=== PATIENT | female | born 1950 | race Caucasian/White ===

== ENCOUNTER 2019-01-01 12:32 | Inpatient (IN) | payer MEDICARE, BC ==
[~2019-01-01] VITALS: Ht 167.6 cm; Wt 84.8 kg
[2019-01-01] MEDS ORDERED: SODIUM CHLORIDE 0.9% 1L BAG IV* STA ×2 (12:42→12:48)
[2019-01-01] MEDS ORDERED: AZITHROMYCIN 500MG/NS (PMX) 250 ML IV STA (12:42)
[2019-01-01] MEDS ORDERED: CEFTRIAXONE 1 GM/50 ML (PMX) 50 ML IVPB STA (12:42)
[2019-01-01] MEDS ORDERED: ACETAMINOPHEN 325 MG TAB PO STA (12:42)
[2019-01-01] MEDS ORDERED: ONDANSETRON 4 MG INJ IV STA (12:48)
[2019-01-01] MEDS ORDERED: MAGNESIUM SULFATE 2 GM/50 ML 50 ML IVPB STA (12:48)
[2019-01-01] MEDS ORDERED: CEFEPIME 2GM/50 ML (PMX) 50 ML IVPB STA (12:48)
[2019-01-01] MEDS ORDERED: IPRATROPIUM (NEB) 0.5 MG/2.5 ML AMP INH STA (12:48)
[2019-01-01] MEDS ORDERED: morphine 4 MG/ML VIAL IV STA (12:48)
[2019-01-01] MEDS ORDERED: DEXAMETHASONE 10 MG/ML 1 ML INJ IV STA (12:48)
[2019-01-01] MEDS ORDERED: ALBUTEROL 0.5% (NEB) 2.5 MG/0.5 ML AMP INH STA (12:48)
[2019-01-01] MEDS ORDERED: VANCOMYCIN 1 GM (PMX) 250 ML IVPB ONE (13:00)
[2019-01-01] MEDS ORDERED: FLUO20CA22 PO (13:41)
[2019-01-01] MEDS ORDERED: AMLO2.5T78 PO (13:41)
[2019-01-01] MEDS ORDERED: LISI40TA3 PO (13:41)
[2019-01-01] MEDS ORDERED: TIOT18CA INHALATION (13:42)
[2019-01-01] MEDS ORDERED: PRAV40TA76 PO (13:44)
--- NOTE | 2019-01-01 13:46 | ERD ---
ER Documentation Chief Complaint Chief Complaint c/o fever, SOB, vomiting. recently on a trip to [place]. Hx: CHF, COPD HPI Very pleasant 68-year-old female history of COPD, possibly CHF who presents to the emergency room with shortness of breath. The patient is on oxygen intermittently and was recently in [place]. The patient states that she was hospitalized for 4 days for COPD exacerbation, not discharged on steroids or antibiotics. Patient states that her shortness of breath is worsening with subjective fevers, cough that is now productive of greenish sputum. Patient describes chest wall pain with coughing that is mild, sharp. ROS All systems reviewed and are negative except as per history of present illness. Medications Home Meds Reported Medications Aclidinium [place] (Tudorza Pressair) 400 Mcg Aer.pow.ba, 400 MCG IH BID, EA 01/01/19 Salmeterol Xinaf/Fluticasone* (Advair*) 250-50 Diskus Inhaler, 1 INH INHALATION BID, #1 INHALER 01/01/19 Pravastatin Sodium* (Pravastatin Sodium*) 40 Mg Tablet, 40 MG PO HS, TAB 01/01/19 Tiotropium [place]* (Spiriva*) 18 Mcg Cap.w.dev, 1 CAP INHALATION DAILY, #30 CAP 01/01/19 Fluoxetine Hcl* (Fluoxetine Hcl*) 20 Mg Capsule, 20 MG PO DAILY, CAP 01/01/19 Lisinopril* (Lisinopril*) 40 Mg Tablet, 40 MG PO DAILY, #30 TAB 01/01/19 Amlodipine Besylate* (Amlodipine Besylate*) 2.5 Mg Tablet, 2.5 MG PO DAILY, #30 TAB 01/01/19 Allergies Allergies: Coded Allergies: No Known Allergy (Unverified , 01/01/19) FmHx Family History: No diabetes Physical Exam Vitals Vital Signs Date Temp Pulse Resp B/P (MAP) Pulse Ox O2 O2 Flow FiO2 Time Delivery Rate 01/01/19 104 24 90 21 13:11 01/01/19 Nasal 2 13:00 Cannula 01/01/19 101.0 119 28 118/80 90 12:41 (93) Physical Exam General: Speaking in shorter sentences, breathing through pursed lips. Prolonged expiratory phase. Head: Normocephalic, atraumatic. Eyes: Pupils equally reactive, EOM intact ENT: Moist mucous membranes Neck: Supple, no lymphadenopathy Respiratory: Decreased aeration bilaterally with scant wheezing. Cardiovascular: Slight tachycardia, no murmurs, rubs, or gallops Abdominal: Soft, non-tender, non-distended, no peritoneal signs : Deferred MSK: No edema, no unilateral swelling, 5/5 strength Neurologic: Alert and oriented, moving all extremities, normal speech, no focal weakness, no cerebellar signs Skin: No rash Psych: Normal mood Result Diagram: 01/01/19 1256 01/01/19 1256 Results 24 hrs Laboratory Tests Test 01/01/19 12:56 01/01/19 14:20 White Blood Count 17.5 10^3/ul Red Blood Count 3.90 10^6/ul Hemoglobin 10.8 g/dl Hematocrit 33.5 % Mean Corpuscular Volume 85.9 fl Mean Corpuscular Hemoglobin 27.7 pg Mean Corpuscular Hemoglobin Concent 32.2 g/dl Red Cell Distribution Width 13.1 % Platelet Count 297 10^3/UL Mean Platelet Volume 10.4 fl Immature Granulocytes % 0.800 % Neutrophils % 88.9 % Lymphocytes % 4.1 % Monocytes % 6.0 % Eosinophils % 0.1 % Basophils % 0.1 % Nucleated Red Blood Cells % 0.0 /100WBC Immature Granulocytes # 0.140 10^3/ul Neutrophils # 15.6 10^3/ul Lymphocytes # 0.7 10^3/ul Monocytes # 1.0 10^3/ul Eosinophils # 0.0 10^3/ul Basophils # 0.0 10^3/ul Nucleated Red Blood Cells # 0.0 10^3/ul Prothrombin Time 14.2 Sec Prothrombin Time Ratio 1.1 INR International Normalized Ratio 1.09 Activated Partial Thromboplast Time 27.4 Sec Sodium Level 130 mmol/L Potassium Level 3.9 mmol/L Chloride Level 94 mmol/L Carbon Dioxide Level 24 mmol/L Anion Gap 12 Blood Urea Nitrogen 13 mg/dl Creatinine 1.00 mg/dl Est Glomerular Filtrat Rate mL/min 55 mL/min Glucose Level 126 mg/dl Calcium Level 9.0 mg/dl Total Bilirubin 0.6 mg/dl Direct Bilirubin 0.00 mg/dl Indirect Bilirubin 0.6 mg/dl Aspartate Amino Transf (AST/SGOT) 37 IU/L Alanine Aminotransferase (ALT/SGPT) 35 IU/L Alkaline Phosphatase 105 IU/L Troponin I < 0.012 ng/ml Total Protein 7.1 g/dl Albumin 3.8 g/dl Globulin 3.30 g/dl Albumin/Globulin Ratio 1.15 Urine Color YELLOW Urine Clarity SLIGHTLY CLOUDY Urine pH 6.0 Urine Specific Sharon 1.012 Urine Ketones NEGATIVE mg/dL Urine Nitrite POSITIVE mg/dL Urine Bilirubin NEGATIVE mg/dL Urine Urobilinogen 1+ mg/dL Urine Leukocyte Esterase 2+ Dorothea/ul Urine Microscopic RBC 1 /HPF Urine Microscopic WBC 28 /HPF Urine Bacteria FEW /HPF Urine Mucus FEW /HPF Urine Hemoglobin 1+ mg/dL Urine Glucose NEGATIVE mg/dL Urine Total Protein 1+ mg/dl Current Medications Medications Dose Sig/Dusty Start Time Status Last (Trade) Ordered Route PRN Stop Time Admin Dose Reason Admin Sodium 2,100 ml BOLUS OVER 2 01/01/19 DC Chloride HOURS STAT 12:42 (NS) IV* 01/01/19 12:51 650 mg ONCE STAT 01/01/19 DC 01/01/19 Acetaminophen PO 12:42 13:34 (Tylenol 01/01/19 12:44 Tab) Ceftriaxone 50 ml @ ONCE STAT 01/01/19 DC Sodium 100 mls/hr IVPB 12:42 01/01/19 12:51 Azithromycin 250 ml @ ONCE STAT 01/01/19 DC 250 mls/hr IV 12:42 01/01/19 12:51 Sodium 2,320 ml BOLUS OVER 2 01/01/19 DC 01/01/19 Chloride HOURS STAT 12:48 13:34 (NS) IV* 01/01/19 12:51 Cefepime HCl 50 ml @ ONCE STAT 01/01/19 DC 01/01/19 100 mls/hr IVPB 12:48 13:35 01/01/19 13:17 Vancomycin 250 ml @ ONCE ONCE 01/01/19 DC HCl 125 mls/hr IVPB 13:00 01/01/19 14:59 Albuterol 15 mg ONCE STAT 01/01/19 DC 01/01/19 (Proventil INH 12:48 13:11 0.5% (Neb)) 01/01/19 12:51 Ipratropium 2 mg ONCE STAT 01/01/19 DC 01/01/19 [place] INH 12:48 13:11 (Atrovent 01/01/19 12:51 0.02% (Neb)) 10 mg ONCE STAT 01/01/19 DC 01/01/19 Dexamethasone IV 12:48 13:34 (Decadron) 01/01/19 12:51 Magnesium 50 ml @ 25 ONCE STAT 01/01/19 DC 01/01/19 Sulfate mls/hr IVPB 12:48 13:35 01/01/19 14:47 Morphine 4 mg ONCE STAT 01/01/19 DC Sulfate IV 12:48 (morphine) 01/01/19 12:51 Ondansetron 4 mg ONCE STAT 01/01/19 DC 01/01/19 HCl (Zofran IV 12:48 13:34 Inj) 01/01/19 12:51 Ondansetron 4 mg BRIDGE ORDER 01/01/19 HCl (Zofran PRN IV 14:30 Inj) NAUSEA/VOMITI 01/02/19 14:29 NG 650 mg ER BRIDGE 01/01/19 Acetaminophen PRN PO 14:30 (Tylenol .MILD PAIN 01/02/19 14:29 Tab) 1-3 OR TEMP IV Flush 3 ml PER 01/01/19 (NS 3 ml) PROTOCOL IV 15:00 Ondansetron 4 mg Q6H PRN 01/01/19 HCl (Zofran IV 15:00 Inj) NAUSEA/VOMITI NG 650 mg Q6H PRN 01/01/19 Acetaminophen PO .PAIN 1-3 15:00 (Tylenol OR TEMP Tab) 1 tab Q6H PRN 01/01/19 Acetaminophen PO .MOD PAIN 15:00 / 4-6 Hydrocodone Bitart ([place] (5/325)) Morphine 2 mg Q4H PRN 01/01/19 Sulfate IV .SEVERE 15:00 (morphine) PAIN 7-10 Docusate 100 mg Q12H PRN 01/01/19 Sodium PO 15:00 (Colace) .CONSTIPATION Magnesium 30 ml DAILY PRN 01/01/19 Hydroxide PO 15:00 (Milk Of Mag) .CONSTIPATION Heparin 5,000 unit Q12 SC 01/01/19 Sodium 21:00 (Porcine) (Heparin (5000 Units/1ml)) Sodium 1,000 ml @ [id number] IV 01/01/19 Chloride 75 mls/hr 14:36 Lorazepam 0.5 mg Q6H PRN 01/01/19 (Ativan) IV ANXIETY 15:00 Albuterol/ 3 ml Q4H RESP 01/01/19 Ipratropium THERAPY HHN 17:00 (Duoneb) Piperacillin 100 ml @ Q6 IVPB 01/01/19 Sod/ 200 mls/hr 18:00 Tazobactam Sod Hydralazine 10 mg Q6H PRN 01/01/19 HCl IV ELEVATED 15:00 (Apresoline) BLOOD PRESSURE 1 tab Q5M PRN 01/01/19 Nitroglycerin SL ANGINA 15:00 (Nitroglyceri n (Sl Tab) 0.4 Mg) Fluoxetine 20 mg DAILY PO 01/02/19 HCl 09:00 (Prozac) 40 mg HS PO 01/01/19 UNV Miscellaneous 21:00 Information 1 inh BID 01/01/19 DC Miscellaneous INHALATION 21:00 Information 01/01/19 21:00 80 mg Q8 IV 01/01/19 Methylprednis 15:00 olone Sodium Succinate (Solu-Medrol) 10 mg HS PO 01/01/19 Atorvastatin 21:00 Calcium (Lipitor) 2 ml BID RESP 01/01/19 Arformoterol THERAPY INH 20:00 Tartrate (Brovana (Neb)) Budesonide 0.5 mg BID RESP 01/01/19 (Pulmicort THERAPY INH 20:00 (Neb)) Procedures/MDM EKG, MONITORS, & DIAGNOSTIC IMAGING: EKG: I reviewed and interpreted a 12-lead EKG. Rhythm: Sinus tachycardia ST Changes: No contiguous ST segment elevations T waves: No contiguous T wave inversions Impression: No evidence of acute cardiac ischemia Chest x-ray: I reviewed and interpreted a 1 view of the chest Mediastinum: No enlargement Cardiac silhouette: No cardiomegaly Airspace: Right lower lobe infiltrate Bones: No evidence of fracture LAB INTERPRETATION: I reviewed the laboratory testing and it shows leukocytosis MEDICAL DECISION MAKING: Patient presents with Sirs criteria with concern for focal source of infection raising a concern for sepsis. Sepsis screening was initiated and the code sepsis was called. Patient has recent hospitalization prompting broad-spectrum antibiotics. Patient likely has COPD exacerbation. No evidence of volume overload and low concern for CHF exacerbation. Monitoring fluid resuscitation is certainly necessary. Patient is protecting her airway and does not require positive pressure ventilation at this time. She is allergic to epinephrine. ER COURSE: * The patient was given an hour-long breathing treatment, Decadron, blood cultures prior to broad-spectrum antibiotics in the form of vancomycin and cefepime. Magnesium provided for assistance of wheezing and shortness of breath. * Patient was written for 30 cc/kg bolus of normal saline. * Lactic acid and blood pressure are reassuring. CONSULTATION: None DISPOSITION PLAN: Medical surgical admission for management of COPD exacerbation, sepsis Accepting care team and consultations: I discussed the current laboratory data, diagnostic imaging and emergency care provided. Admitting team: Dr. Hunt Admitting team indication: Insurance directed Sepsis Documentation: Patient's infectious symptoms have not stabilized and the patient is at risk of rapid decompensation. The patient will be admitted for careful hydration, antibiotic therapy, and infectious source control. SEVERE SEPSIS CRITERIA: Infectious source: Healthcare associated pneumonia End organ damage indicated by: Acute Resp Failure (sat < 92% w/o oxygen) SEPSIS MANAGEMENT Time of recognition of sepsis: Upon MD assessment. Time of recognition of severe sepsis: Upon MD assessment. Time of recognition of septic shock: No septic shock at this time. 3 HOUR BUNDLE Blood cultures x 2 before broad-spectrum antibiotics: Yes 30 ml/kg NS bolus completed Initial lactate less than 2 Repeat lactate pending repeat SEPTIC SHOCK ASSESSMENT: No lactic acid > 4.0 No persistent hypotension (SBP < 90 or 40 mmHg drop, MAP < 65) despite 30 mL/kg IV fluid bolus VOLUME REASSESSMENT FOR SEPTIC SHOCK: The patient does not meet criteria for septic shock in the emergency department at this time PERSISTENT HYPOTENSION TREATMENT: Comfort care no Central line not Required Vasopressor started not required I considered further perfusion assessment with CVP measurement, SCVO2, bedside ultrasound volume assessment, passive leg raise, trial of further fluid bolus. And proceeded with 30 ml/kg fluid bolus of NSS, broad spectrum antibiotics, and admission. CRITICAL CARE Critical care time 35 minutes Emergent fluid management while maintaining close respiratory support. Provision of immediate and broad-spectrum antibiotic therapy. Simultaneous assessment for possible sources in order to direct targeted therapy. Consideration for invasive and chemical support to prevent cardiopulmonary collapse. Critical care time is independent of procedures performed. Departure Diagnosis: Primary Impression: COPD with exacerbation Additional Impressions: Healthcare-associated pneumonia Severe sepsis Hypoxia Condition: Stable ALMA LONDONO MD Jan 01, 2019 13:46
[2019-01-01] MEDS ORDERED: ADV25050 INHALATION (13:50)
[2019-01-01] MEDS ORDERED: ACLI400A2 IH (13:51)
[2019-01-01] MEDS ORDERED: ACETAMINOPHEN 325 MG TAB PO PRN (14:30)
[2019-01-01] MEDS ORDERED: ONDANSETRON 4 MG INJ IV PRN (14:30)
[2019-01-01] MEDS: SOD CHLORIDE 0.45% 1,000 ML IV SCH ×2 (14:36→22:58)
[2019-01-01] MEDS ORDERED: MAGNESIUM HYDROXIDE 30ML CUP PO PRN (15:00)
[2019-01-01] MEDS ORDERED: hydrALAzine 20 MG INJ IV PRN (15:00)
[2019-01-01] MEDS ORDERED: morphine 2 MG INJ IV PRN (15:00)
[2019-01-01] MEDS ORDERED: NITROGLYCERIN (SL) 0.4 MG TAB SL PRN (15:00)
[2019-01-01] MEDS ORDERED: NACL 0.9% 3 ML SYG IV SCH (15:00)
[2019-01-01] MEDS: PIPER-TAZO 3.375 GM IV (PMX) 100 ML IVPB SCH (18:02)
[2019-01-01] MEDS: METHYLPREDNISOLONE 125 MG INJ IV SCH ×2 (18:02→22:58)
[2019-01-01] MEDS: ALBUTEROL/IPRATROPIUM (NEB) 3 ML AMP HHN SCH ×3 (18:13→21:00)
[2019-01-01] MEDS ORDERED: AZITHROMYCIN 500 MG TAB PO ONE (19:30)
--- NOTE | 2019-01-01 19:41 | HP ---
DATE OF ADMISSION: 01/01/2019 REASON FOR ADMISSION: Cough, fever and shortness of breath. HISTORY OF PRESENT ILLNESS: This 68-year-old female who has a history of COPD, came to the emergency room today because of increasing cough that was productive of greenish phlegm, shortness of breath a nd fever. The patient has a long history of chronic obstructive pulmonary disease for years. She wa s a smoker years ago. The patient was admitted earlier this month on 12/19/2018 to [facility] in [place]. She was there visiting her brother. She says that she was admitted there because of crushing type chest pain with shortness of breath. The patient denies that she had fever or product noa cough at that time. The patient was diagnosed with chest pain due to compensated heart failure, chronic obstructive pulmonary disease and hypertension. Her lungs at the time of that admission were clear. Cardiac enzymes were negative and there was no evidence of cardiac ischemia. Her BNP was no rmal at 32. The patient was treated for hypertension, hyperlipidemia, congestive heart failure and c hronic obstructive pulmonary disease. She was discharged home on amlodipine 2.5 mg a day, budesonide and formoterol 80/4.5 two puffs twice a day, fluoxetine 20 mg a day, lisinopril 40 mg a day and Spir alissa capsules 2 puffs daily. The patient said that she was doing well until the last several days whe n she developed increasing cough productive of greenish sputum, fever, nausea, vomiting and right upp er quadrant abdominal pain. The patient is cared for by a nurse practitioner, Rupali Mckenzie, who works in our [place] office. CURRENT MEDICATIONS: Include: 1. Tudorza Pressair 400 mcg b.i.d. 2. Advair 250/50 one puff twice a day. 3. Pravastatin 40 mg a day. 4. Spiriva 18 mcg 1 inhalation daily. 5. Fluoxetine 20 mg a day. 6. Lisinopril 40 mg a day. 7. Amlodipine 2.5 mg a day. ALLERGIES: SHE HAS NO KNOWN DRUG ALLERGIES. FAMILY HISTORY: Unremarkable. PHYSICAL EXAMINATION: GENERAL: At this time reveals an elderly female in no apparent distress. She is awake and alert and oriented x3. VITAL SIGNS: Temperature 98.3, pulse of 94, respirations 16, blood pressure 110/78, O2 saturation 97 % on 2-liter nasal cannula. HEENT: Head is normocephalic. Eyes: Extraocular muscles are intact. Nose and mouth are normal. LUNGS: Diminished breath sounds bilaterally. No rales. There are some fine expiratory wheezes on t he right. HEART: Regular rate, rhythm. No murmurs, gallops or rubs. ABDOMEN: Soft, nontender, no masses or megaly. EXTREMITIES: No peripheral edema. NEUROLOGIC: Grossly intact. No obvious focal neurologic deficits. DIAGNOSTIC DATA: Chest x-ray shows a right lower lobe infiltrate. LABORATORY DATA: White blood count is elevated at 17,500, hemoglobin 10.8, hematocrit 33.5. Photo Mask Pattern Generator ry: Sodium 130, potassium 3.9, chloride 94, CO2 of 24, BUN 13, creatinine 1.0. Urinalysis: She cruz s have some white blood cells in the urine and positive nitrite and leukocyte esterase 2+. IMPRESSION: 1. Right lower lobe pneumonia superimposed on chronic obstructive pulmonary disease. 2. Hypertension. 3. Hyperlipidemia. 4. Anemia. 5. Hyponatremia. 6. Urinary tract infection. PLAN: 1. Start broad spectrum antibiotics. 2. Breathing treatments. 3. Check urine sodium. 4. Check iron, stool for occult blood. 5. Right upper quadrant abdominal pain. Dictated By: ALMA ADAMS MD, ND/LAURI Conf#: [id number] DID#: [id number] CC: ALMA LONDONO MD;*EndCC*
[2019-01-01] MEDS: BUDESONIDE (NEB) 0.5MG/2ML AMP INH SCH (20:00)
[2019-01-01] MEDS: ARFORMOTEROL TARTRATE 15MCG/2 ML AMP INH SCH (20:00)
[2019-01-01] MEDS ORDERED: NON-FORMULARY/PATIENT OWN MED (Pravastatin Sodium* 40 MG) PO SCH (21:00)
[2019-01-01] MEDS ORDERED: NON-FORMULARY/PATIENT OWN MED (Salmeterol Xinaf/Fluticasone* (Advair*) 1 INH) INHALATION SCH (21:00)
[2019-01-01] MEDS: ATORVASTATIN 10 MG TAB PO SCH (21:47)
[2019-01-01 22:33] VITALS: Ht 167.6 cm; Wt 84.8 kg
[2019-01-01 23:00] VITALS: BP 135/75; PULSE 90; RESP 18
[2019-01-01] MEDS: HEPARIN 5,000 UNIT/1 ML VIAL SC SCH (23:03)
[2019-01-02] MEDS: ALBUTEROL/IPRATROPIUM (NEB) 3 ML AMP HHN SCH ×6 (00:05→20:57)
[2019-01-02] MEDS: PIPER-TAZO 3.375 GM IV (PMX) 100 ML IVPB SCH ×5 (00:13→23:53)
[2019-01-02 02:00] VITALS: BP 106/61; PULSE 93; RESP 19
[2019-01-02] MEDS: SALINE 0.65% NAS 14.1 GM TUBE NASAL PRN ×2 (04:01→12:55)
[2019-01-02] MEDS: METHYLPREDNISOLONE 125 MG INJ IV SCH (05:33)
--- NOTE | 2019-01-02 07:47 | CONS ---
Assessment/Plan Assessment/Plan Hospital Course (Demo Recall) 1) RML pneumonia following a 4 day stay in a hospital for COPD and (altitude sickness?) sputum cx was just collected nasal swab for MRSA is pending blood cx are NGTD continue with zosyn and add doxycycline for atypical and MRSA coverage I agree with treating for more resistant bacteria due to her recent stay at a hospital because of wheezing pt was given steroids, currently there is no wheezing 2) moderate pyuria with GNR in urine pt has some mild L CVAT, so will get a renal u/s likely zosyn will treat await final ID and sensi's 3) COPD 4) HTN 5) hx of CHF Consultation Date/Type/Reason Admit Date/Time Jan 01, 2019 at 14:28 Date of Consultation: Jan 02, 2019 Type of Consult ID Date/Time of Note DATE: 01/02/19 TIME: 07:33 Hx of Present Illness pt was admitted to the hospital yesterday due to F, chills, sweats, productive cough She was in [place], [place] visiting her brother in december and withing 24 hours of being there she developed 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 She was not having a cough or fevers at that time and was not given any antibiotics. within 24 hours of leaving the hospital she developed some fevers, productive cough (green), muscle aches, hip joint pains, chills and continued sweats this continued for a week and then she came back to [place] and was admitted to the hospital She had some vomiting with nausea She denies diarrhea, dysuria, urine frequency, rashes but does say she feels as though her kidneys hurt She states her diffuse muscle aches and hip joint pains are better. Her sputum today is less productive. Past Medical History CHF, HTN, COPD, hyperlipidemia Home Meds Reported Medications Aclidinium [place] (Tudorza Pressair) 400 Mcg Aer.pow.ba, 400 MCG IH BID, EA 01/01/19 Salmeterol Xinaf/Fluticasone* (Advair*) 250-50 Diskus Inhaler, 1 INH INHALATION BID, #1 INHALER 01/01/19 Pravastatin Sodium* (Pravastatin Sodium*) 40 Mg Tablet, 40 MG PO HS, TAB 01/01/19 Tiotropium [place]* (Spiriva*) 18 Mcg Cap.w.dev, 1 CAP INHALATION DAILY, #30 CAP 01/01/19 Fluoxetine Hcl* (Fluoxetine Hcl*) 20 Mg Capsule, 20 MG PO DAILY, CAP 01/01/19 Lisinopril* (Lisinopril*) 40 Mg Tablet, 40 MG PO DAILY, #30 TAB 01/01/19 Amlodipine Besylate* (Amlodipine Besylate*) 2.5 Mg Tablet, 2.5 MG PO DAILY, #30 TAB 01/01/19 Medications Current Medications IV Flush (NS 3 ml) 3 ml PER PROTOCOL IV ; Start 01/01/19 at 15:00 Ondansetron HCl (Zofran Inj) 4 mg Q6H PRN IV NAUSEA/VOMITING; Start 01/01/19 at 15:00 Acetaminophen (Tylenol Tab) 650 mg Q6H PRN PO .PAIN 1-3 OR TEMP; Start 01/01/19 at 15:00 Acetaminophen/ Hydrocodone Bitart ([place] (5/325)) 1 tab Q6H PRN PO .MOD PAIN 4- 6; Start 01/01/19 at 15:00 Morphine Sulfate (morphine) 2 mg Q4H PRN IV .SEVERE PAIN 7-10; Start 01/01/19 at 15:00 Docusate Sodium (Colace) 100 mg Q12H PRN PO .CONSTIPATION; Start 01/01/19 at 15:00 Magnesium Hydroxide (Milk Of Mag) 30 ml DAILY PRN PO .CONSTIPATION; Start 01/01/19 at 15:00 Heparin Sodium (Porcine) (Heparin (5000 Units/1ml)) 5,000 unit Q12 SC Last administered on 01/01/19at 23:03; Admin Dose 5,000 UNIT; Start 01/01/19 at 21:00 Sodium Chloride 1,000 ml @ 75 mls/hr [id number] IV Last administered on 01/01/19at 22:58; Admin Dose 75 MLS/HR; Start 01/01/19 at 14:36 Lorazepam (Ativan) 0.5 mg Q6H PRN IV ANXIETY; Start 01/01/19 at 15:00 Albuterol/ Ipratropium (Duoneb) 3 ml Q4H RESP THERAPY HHN Last administered on 01/02/19at 04:41; Admin Dose 3 ML; Start 01/01/19 at 17:00 Piperacillin Sod/ Tazobactam Sod 100 ml @ 200 mls/hr Q6 IVPB Last administered on 01/02/19at 05:34; Admin Dose 200 MLS/HR; Start 01/01/19 at 18:00 Hydralazine HCl (Apresoline) 10 mg Q6H PRN IV ELEVATED BLOOD PRESSURE; Start 01/01/19 at 15:00 Nitroglycerin (Nitroglycerin (Sl Tab) 0.4 Mg) 1 tab Q5M PRN SL ANGINA; Start 01/01/19 at 15:00 Fluoxetine HCl (Prozac) 20 mg DAILY PO ; Start 01/02/19 at 09:00 Methylprednisolone Sodium Succinate (Solu-Medrol) 80 mg Q8 IV Last administered on 01/02/19at 05:33; Admin Dose 80 MG; Start 01/01/19 at 15:00 Atorvastatin Calcium (Lipitor) 10 mg HS PO Last administered on 01/01/19at 21:47; Admin Dose 10 MG; Start 01/01/19 at 21:00 Arformoterol Tartrate (Brovana (Neb)) 2 ml BID RESP THERAPY INH ; Start 01/01/19 at 20:00 Budesonide (Pulmicort (Neb)) 0.5 mg BID RESP THERAPY INH ; Start 01/01/19 at 20:00 Sodium Chloride ([place] Nasal Gel) 1 applic BID PRN NASAL NASAL DRYNESS Last administered on 01/02/19at 04:01; Admin Dose 1 APPLIC; Start 01/01/19 at 23:00 Allergies: Coded Allergies: epinephrine (Verified Allergy, Severe, 01/01/19) Past Surgical History hysterectomy, choleycystectomy, R shoulder surgery, R knee surgery Social History Smoking Status: Former smoker Exam/Review of Systems Exam Vitals Vital Signs Date Temp Pulse Resp B/P (MAP) Pulse Ox O2 O2 Flow FiO2 Time Delivery Rate 01/02/19 92 18 93 Nasal 2.0 04:42 Cannula 01/02/19 98.0 106/61 02:00 (76) 01/01/19 21 13:11 Intake and Output 01/01/19 01/01/19 01/02/19 1515:00 23:00 07:00 IntakeIntake Total 780 ml OutputOutput Total 300 ml BalanceBalance 480 ml Constitutional: alert, oriented Eyes: nl sclera ENMT: mucosa pink and moist Neck: supple Respiratory: clear to auscultation, other (distant BS) Cardiovascular: regular rate and rhythm Gastrointestinal: soft, non-tender, other (mild L CVAT) Results Result Diagram: 01/02/19 0451 01/02/19 0451 Results 24hrs Laboratory Tests Test 01/01/19 12:56 01/01/19 12:57 01/01/19 14:20 01/01/19 14:44 White Blood Count 17.5 H Red Blood Count 3.90 L Hemoglobin 10.8 L Hematocrit 33.5 L Mean Corpuscular 85.9 Volume Mean Corpuscular 27.7 L Hemoglobin Mean Corpuscular 32.2 Hemoglobin Concen t Red Cell 13.1 Distribution Width Platelet Count 297 Mean Platelet 10.4 Volume Immature 0.800 H Granulocytes % Neutrophils % 88.9 H Lymphocytes % 4.1 L Monocytes % 6.0 Eosinophils % 0.1 Basophils % 0.1 Nucleated Red 0.0 Blood Cells % Immature 0.140 H Granulocytes # Neutrophils # 15.6 H Lymphocytes # 0.7 L Monocytes # 1.0 H Eosinophils # 0.0 Basophils # 0.0 Nucleated Red 0.0 Blood Cells # Prothrombin Time 14.2 Prothrombin Time 1.1 Ratio INR International 1.09 Normalized Ratio Activated 27.4 Partial Thrombopl ast Time Sodium Level 130 L Potassium Level 3.9 Chloride Level 94 L Carbon Dioxide 24 Level Anion Gap 12 Blood Urea 13 Nitrogen Creatinine 1.00 Est Glomerular 55 L Filtrat Rate mL/min Glucose Level 126 Calcium Level 9.0 Total Bilirubin 0.6 Direct Bilirubin 0.00 Indirect 0.6 Bilirubin Aspartate Amino 37 Transf (AST/SGOT) Alanine 35 Aminotransferase (ALT/SGPT) Alkaline 105 Phosphatase Troponin I < 0.012 Total Protein 7.1 Albumin 3.8 Globulin 3.30 H Albumin/Globulin 1.15 Ratio POC Venous 1.2 Lactate Urine Color YELLOW Urine Clarity SLIGHTLY CLOUDY A Urine pH 6.0 Urine Specific 1.012 [place] Urine Ketones NEGATIVE Urine Nitrite POSITIVE A Urine Bilirubin NEGATIVE Urine 1+ H Urobilinogen Urine Leukocyte 2+ H Esterase Urine Microscopic 1 RBC Urine Microscopic 28 H WBC Urine Bacteria FEW A Urine Mucus FEW A Urine Hemoglobin 1+ H Urine Random 23 L Sodium Urine Glucose NEGATIVE Urine Total 1+ H Protein Lactic Acid Level 1.6 Test 01/01/19 14:57 01/01/19 20:00 01/02/19 04:49 01/02/19 04:51 Prothrombin Time 14.7 Prothrombin Time 1.1 Ratio INR International 1.14 Normalized Ratio Activated 30.4 Partial Thrombopl ast Time Free Thyroxine 2.20 Lactic Acid Level 1.8 Iron Level 14 L Total Iron 254 Binding Capacity Percent Iron 6 L Saturation Ferritin 111.0 Thyroid 0.477 Pending Stimulating Hormone (TSH) Triglycerides 70 Level Cholesterol Level 97 L LDL Cholesterol, 57 Calculated HDL Cholesterol 26 L Cholesterol/HDL 3.7 Ratio White Blood Count 13.1 #H Red Blood Count 3.33 L Hemoglobin 9.4 L Hematocrit 28.9 L Mean Corpuscular 86.8 Volume Mean Corpuscular 28.2 L Hemoglobin Mean Corpuscular 32.5 Hemoglobin Concen t Red Cell 13.1 Distribution Width Platelet Count 278 Mean Platelet 10.3 Volume Immature 0.500 H Granulocytes % Neutrophils % 93.6 H Lymphocytes % 3.4 L Monocytes % 2.3 Eosinophils % 0.0 Basophils % 0.2 Nucleated Red 0.0 Blood Cells % Immature 0.070 H Granulocytes # Neutrophils # 12.2 H Lymphocytes # 0.4 L Monocytes # 0.3 Eosinophils # 0.0 Basophils # 0.0 Nucleated Red 0.0 Blood Cells # Sodium Level 133 L Potassium Level 4.1 Chloride Level 98 Carbon Dioxide 25 Level Anion Gap 10 Blood Urea 15 Nitrogen Creatinine 0.79 Est Glomerular > 60 Filtrat Rate mL/min Glucose Level 131 Hemoglobin A1c 6.0 H Calcium Level 8.9 Phosphorus Level 3.1 Magnesium Level 2.2 Total Bilirubin 0.2 Direct Bilirubin 0.00 Indirect 0.2 Bilirubin Aspartate Amino 29 Transf (AST/SGOT) Alanine 30 Aminotransferase (ALT/SGPT) Alkaline 97 Phosphatase Total Protein 6.3 Albumin 3.1 L Globulin 3.20 Albumin/Globulin 0.96 Ratio Medications Medication Current Medications IV Flush (NS 3 ml) 3 ml PER PROTOCOL IV ; Start 01/01/19 at 15:00 Ondansetron HCl (Zofran Inj) 4 mg Q6H PRN IV NAUSEA/VOMITING; Start 01/01/19 at 15:00 Acetaminophen (Tylenol Tab) 650 mg Q6H PRN PO .PAIN 1-3 OR TEMP; Start 01/01/19 at 15:00 Acetaminophen/ Hydrocodone Bitart ([place] (5/325)) 1 tab Q6H PRN PO .MOD PAIN 4- 6; Start 01/01/19 at 15:00 Morphine Sulfate (morphine) 2 mg Q4H PRN IV .SEVERE PAIN 7-10; Start 01/01/19 at 15:00 Docusate Sodium (Colace) 100 mg Q12H PRN PO .CONSTIPATION; Start 01/01/19 at 15:00 Magnesium Hydroxide (Milk Of Mag) 30 ml DAILY PRN PO .CONSTIPATION; Start 01/01/19 at 15:00 Heparin Sodium (Porcine) (Heparin (5000 Units/1ml)) 5,000 unit Q12 SC Last administered on 01/01/19at 23:03; Admin Dose 5,000 UNIT; Start 01/01/19 at 21:00 Sodium Chloride 1,000 ml @ 75 mls/hr [id number] IV Last administered on 01/01/19at 22:58; Admin Dose 75 MLS/HR; Start 01/01/19 at 14:36 Lorazepam (Ativan) 0.5 mg Q6H PRN IV ANXIETY; Start 01/01/19 at 15:00 Albuterol/ Ipratropium (Duoneb) 3 ml Q4H RESP THERAPY HHN Last administered on 01/02/19at 04:41; Admin Dose 3 ML; Start 01/01/19 at 17:00 Piperacillin Sod/ Tazobactam Sod 100 ml @ 200 mls/hr Q6 IVPB Last administered on 01/02/19at 05:34; Admin Dose 200 MLS/HR; Start 01/01/19 at 18:00 Hydralazine HCl (Apresoline) 10 mg Q6H PRN IV ELEVATED BLOOD PRESSURE; Start 01/01/19 at 15:00 Nitroglycerin (Nitroglycerin (Sl Tab) 0.4 Mg) 1 tab Q5M PRN SL ANGINA; Start 01/01/19 at 15:00 Fluoxetine HCl (Prozac) 20 mg DAILY PO ; Start 01/02/19 at 09:00 Methylprednisolone Sodium Succinate (Solu-Medrol) 80 mg Q8 IV Last administered on 01/02/19at 05:33; Admin Dose 80 MG; Start 01/01/19 at 15:00 Atorvastatin Calcium (Lipitor) 10 mg HS PO Last administered on 4/25/19at 21:47; Admin Dose 10 MG; Start 01/01/19 at 21:00 Arformoterol Tartrate ([place] (Neb)) 2 ml BID RESP THERAPY INH ; Start 01/01/19 at 20:00 Budesonide (Pulmicort (Neb)) 0.5 mg BID RESP THERAPY INH ; Start 01/01/19 at 20:00 Sodium Chloride ([place] Nasal Gel) 1 applic BID PRN NASAL NASAL DRYNESS Last administered on 01/02/19at 04:01; Admin Dose 1 APPLIC; Start 01/01/19 at 23:00 CLARENCE TOBAR MD Jan 02, 2019 07:43
[2019-01-02 08:01] VITALS: BP 120/71; PULSE 92; RESP 16
[2019-01-02] MEDS: FLUOXETINE 20 MG CAP PO SCH (09:19)
[2019-01-02] MEDS: DOXYCYCLINE 100 MG TAB PO SCH ×2 (09:20→20:49)
[2019-01-02] MEDS: HEPARIN 5,000 UNIT/1 ML VIAL SC SCH ×2 (09:23→20:50)
[2019-01-02] MEDS: ARFORMOTEROL TARTRATE 15MCG/2 ML AMP INH SCH ×2 (09:28→20:57)
[2019-01-02] MEDS: BUDESONIDE (NEB) 0.5MG/2ML AMP INH SCH ×2 (09:29→20:57)
--- NOTE | 2019-01-02 09:29 | RADRPT ---
Echocardiogram Report Patient Name: LEROY PRASADPatient ID: [id number] : 1950 (68y 10m)Study Date: 01/02/2019 8:14:30 AM Gender: FAccession #: [id number] Tech: Tor Milligan [facility] Location: 2[address] Ref.Physician: JESS ARENAS Height(Cm): BSA: Weight(Kg): Quality: AdequateAccount #: Procedures: Echocardiographic Report: Transthoracic echocardiogram with complete 2D, M-Mode, and doppler examination. Indications: Congestive Heart Failure, and Shortness of breath. Measurements: 2D/M Mode Doppler Measurement Value Normal Range Measurement Value Normal Range LVIDd 2D 4.5 [ 3.8 - 5.2 ] cm AV Peak [place] 1.3 [ 100.0 - 170.0 ] cm/sec LVIDs 2D 3.2 [ 2.2 - 3.5 ] cm AV Peak PG 7.0 [ 2.0 - 9.0 ] mmHg LVPWd 2D 1.0 [ 0.6 - 0.9 ] cm LVOT Peak [place] 0.8 [ 70.0 - 110.0 ] cm/sec IVSd 2D 1.4 [ 0.6 - 0.9 ] cm LVOT Peak PG 3.0 [ 2.0 - 6.0 ] mmHg AoR Diam 2D 2.8 [ 2.3 - 3.1 ] cm MV E Peak [place] 0.7 [ 60.0 - 130.0 ] cm/sec EDV 2D 92.4 [ 46.0 - 106.0 ] ml MV A Peak [place] 0.9 [ 100.0 - 120.0 ] cm/sec ESV 2D 40.0 [ 14.0 - 42.0 ] ml MV E/A 0.8 [ 0.8 - 1.5 ] ratio EF 2D 56.7 [ 54.0 - 74.0 ] percent MV Decel Time 158 [ 104 - 258 ] msec LA Dimen 2D 3.6 [ 2.7 - 3.8 ] cm Lat E` Santiago 0.1 [ 10.0 - 15.0 ] cm/sec Lateral E/E` 7.1 [ 1.0 - 2.0 ] ratio MV E/A 0.8 [ 0.8 - 1.5 ] ratio TR Peak [place] 3.3 [ 100.0 - 280.0 ] cm/sec TR Peak PG 44.0 mmHg RVSP 59.0 [ 10.0 - 36.0 ] mmHg Findings: Left Ventricle: Normal left ventricular systolic function. Normal left ventricular cavity size. Normal left ventricular wall thickness. Ejection fraction is visually estimated at 55-60 %. Tissue Doppler/Mitral Doppler indices are consistent with impaired relaxation (Stage I diastolic dysfunction). Right Ventricle: Normal right ventricular size. Normal right ventricular systolic function. Left Atrium: There is mild enlargement of left atrium. Right Atrium: The right atrium is normal in size. Mitral Valve: Normal appearance of the mitral valve. Normal appearance and function of the mitral valve with trace physiologic regurgitation. Aortic Valve: Normal appearance of the aortic valve. No significant aortic stenosis or insufficiency. Tricuspid Valve: Normal appearance of the tricuspid valve. Estimated peak PA systolic pressure 59 mmHg. There is mild tricuspid regurgitation. Pulmonic Valve: Normal pulmonic valve appearance. Pericardium: There is an anterior echo free space consistent with epicardial fat pad. Aorta: Normal aortic root. IVC: Dilated IVC without respiratory collapse consistent with elevated right atrial pressure. Conclusions: Normal left ventricular systolic function. Normal left ventricular cavity size. Normal left ventricular wall thickness. Ejection fraction is visually estimated at 55-60 %. Tissue Doppler/Mitral Doppler indices are consistent with impaired relaxation (Stage I diastolic dysfunction). No significant valvular stenosis or regurgitation seen. Estimated peak PA systolic pressure 59 mmHg. Dilated IVC without respiratory collapse consistent with elevated right atrial pressure. Electronically Signed By: Merrill Moody 2019-01-02 09:28:10 PDT
--- NOTE | 2019-01-02 11:21 | PN ---
Date/Time of Note Date/Time of Note DATE: 01/02/19 TIME: 11:17 Assessment/Plan VTE Prophylaxis Risk score (from Ns)>0 risk: 3 SCD applied (from Ns): Yes Pharmacological prophylaxis: heparin Lines/Catheters IV Catheter Type (from [facility]): [facility] Assessment/Plan Hospital Course 1. Right lower lobe pneumonia, now on antibiotics. She has been seen by infectious disease specialist Dr. wan. 2. Urinary tract infection 3. COPD with acute exacerbation 4. Anemia, iron deficiency. I will start her on IV Ferrlecit and check stool for occult blood. 5. Right upper quadrant abdominal pain. She says that she has had a cholecystectomy in the past. A ultrasound has been ordered. Result Diagram: 01/02/19 0451 01/02/19 0451 Results 24hrs Laboratory Tests Test 01/01/19 12:56 01/01/19 12:57 01/01/19 14:20 01/01/19 14:44 White Blood Count 17.5 H Red Blood Count 3.90 L Hemoglobin 10.8 L Hematocrit 33.5 L Mean Corpuscular 85.9 Volume Mean Corpuscular 27.7 L Hemoglobin Mean Corpuscular 32.2 Hemoglobin Concen t Red Cell 13.1 Distribution Width Platelet Count 297 Mean Platelet 10.4 Volume Immature 0.800 H Granulocytes % Neutrophils % 88.9 H Lymphocytes % 4.1 L Monocytes % 6.0 Eosinophils % 0.1 Basophils % 0.1 Nucleated Red 0.0 Blood Cells % Immature 0.140 H Granulocytes # Neutrophils # 15.6 H Lymphocytes # 0.7 L Monocytes # 1.0 H Eosinophils # 0.0 Basophils # 0.0 Nucleated Red 0.0 Blood Cells # Prothrombin Time 14.2 Prothrombin Time 1.1 Ratio INR International 1.09 Normalized Ratio Activated 27.4 Partial Thrombopl ast Time Sodium Level 130 L Potassium Level 3.9 Chloride Level 94 L Carbon Dioxide 24 Level Anion Gap 12 Blood Urea 13 Nitrogen Creatinine 1.00 Est Glomerular 55 L Filtrat Rate mL/min Glucose Level 126 Calcium Level 9.0 Total Bilirubin 0.6 Direct Bilirubin 0.00 Indirect 0.6 Bilirubin Aspartate Amino 37 Transf (AST/SGOT) Alanine 35 Aminotransferase (ALT/SGPT) Alkaline 105 Phosphatase Troponin I < 0.012 Total Protein 7.1 Albumin 3.8 Globulin 3.30 H Albumin/Globulin 1.15 Ratio POC Venous 1.2 Lactate Urine Color YELLOW Urine Clarity SLIGHTLY CLOUDY A Urine pH 6.0 Urine Specific 1.012 [place] Urine Ketones NEGATIVE Urine Nitrite POSITIVE A Urine Bilirubin NEGATIVE Urine 1+ H Urobilinogen Urine Leukocyte 2+ H Esterase Urine Microscopic 1 RBC Urine Microscopic 28 H WBC Urine Bacteria FEW A Urine Mucus FEW A Urine Hemoglobin 1+ H Urine Random 23 L Sodium Urine Glucose NEGATIVE Urine Total 1+ H Protein Lactic Acid Level 1.6 Test 01/01/19 14:57 01/01/19 20:00 01/02/19 04:49 01/02/19 04:51 Prothrombin Time 14.7 Prothrombin Time 1.1 Ratio INR International 1.14 Normalized Ratio Activated 30.4 Partial Thrombopl ast Time Free Thyroxine 2.20 Lactic Acid Level 1.8 Iron Level 14 L Total Iron 254 Binding Capacity Percent Iron 6 L Saturation Ferritin 111.0 Thyroid 0.477 0.286 L Stimulating Hormone (TSH) Triglycerides 70 Level Cholesterol Level 97 L LDL Cholesterol, 57 Calculated HDL Cholesterol 26 L Cholesterol/HDL 3.7 Ratio White Blood Count 13.1 #H Red Blood Count 3.33 L Hemoglobin 9.4 L Hematocrit 28.9 L Mean Corpuscular 86.8 Volume Mean Corpuscular 28.2 L Hemoglobin Mean Corpuscular 32.5 Hemoglobin Concen t Red Cell 13.1 Distribution Width Platelet Count 278 Mean Platelet 10.3 Volume Immature 0.500 H Granulocytes % Neutrophils % 93.6 H Lymphocytes % 3.4 L Monocytes % 2.3 Eosinophils % 0.0 Basophils % 0.2 Nucleated Red 0.0 Blood Cells % Immature 0.070 H Granulocytes # Neutrophils # 12.2 H Lymphocytes # 0.4 L Monocytes # 0.3 Eosinophils # 0.0 Basophils # 0.0 Nucleated Red 0.0 Blood Cells # Sodium Level 133 L Potassium Level 4.1 Chloride Level 98 Carbon Dioxide 25 Level Anion Gap 10 Blood Urea 15 Nitrogen Creatinine 0.79 Est Glomerular > 60 Filtrat Rate mL/min Glucose Level 131 Hemoglobin A1c 6.0 H Calcium Level 8.9 Phosphorus Level 3.1 Magnesium Level 2.2 Total Bilirubin 0.2 Direct Bilirubin 0.00 Indirect 0.2 Bilirubin Aspartate Amino 29 Transf (AST/SGOT) Alanine 30 Aminotransferase (ALT/SGPT) Alkaline 97 Phosphatase Total Protein 6.3 Albumin 3.1 L Globulin 3.20 Albumin/Globulin 0.96 Ratio Subjective 24 Hr Interval Summary Free Text/Dictation Priscilla is awake and alert. She is still coughing but less productive. She feels weak. I told her that she is anemic. Respiratory: cough, shortness of breath, sputum Cardiovascular: no complaints Gastrointestinal: no complaints Genitourinary: no complaints Musculoskeletal: no complaints Skin: no complaints Neurologic: no complaints Exam/Review of Systems Exam Vitals Vital Signs Date Temp Pulse Resp B/P (MAP) Pulse Ox O2 O2 Flow FiO2 Time Delivery Rate 01/02/19 Nasal 2.0 08:30 Cannula 01/02/19 97.7 92 16 120/71 95 08:01 (87) 01/01/19 21 13:11 Intake and Output 01/01/19 01/01/19 01/02/19 1515:00 23:00 07:00 IntakeIntake Total 780 ml OutputOutput Total 300 ml BalanceBalance 480 ml Constitutional: alert, oriented, frail Respiratory: congested cough, diminished breath sounds Cardiovascular: regular rate and rhythm Gastrointestinal: soft, non-tender Musculoskeletal: nl extremities to inspection Results Results 24hrs Laboratory Tests Test 01/01/19 12:56 01/01/19 12:57 01/01/19 14:20 01/01/19 14:44 White Blood Count 17.5 H Red Blood Count 3.90 L Hemoglobin 10.8 L Hematocrit 33.5 L Mean Corpuscular 85.9 Volume Mean Corpuscular 27.7 L Hemoglobin Mean Corpuscular 32.2 Hemoglobin Concen t Red Cell 13.1 Distribution Width Platelet Count 297 Mean Platelet 10.4 Volume Immature 0.800 H Granulocytes % Neutrophils % 88.9 H Lymphocytes % 4.1 L Monocytes % 6.0 Eosinophils % 0.1 Basophils % 0.1 Nucleated Red 0.0 Blood Cells % Immature 0.140 H Granulocytes # Neutrophils # 15.6 H Lymphocytes # 0.7 L Monocytes # 1.0 H Eosinophils # 0.0 Basophils # 0.0 Nucleated Red 0.0 Blood Cells # Prothrombin Time 14.2 Prothrombin Time 1.1 Ratio INR International 1.09 Normalized Ratio Activated 27.4 Partial Thrombopl ast Time Sodium Level 130 L Potassium Level 3.9 Chloride Level 94 L Carbon Dioxide 24 Level Anion Gap 12 Blood Urea 13 Nitrogen Creatinine 1.00 Est Glomerular 55 L Filtrat Rate mL/min Glucose Level 126 Calcium Level 9.0 Total Bilirubin 0.6 Direct Bilirubin 0.00 Indirect 0.6 Bilirubin Aspartate Amino 37 Transf (AST/SGOT) Alanine 35 Aminotransferase (ALT/SGPT) Alkaline 105 Phosphatase Troponin I < 0.012 Total Protein 7.1 Albumin 3.8 Globulin 3.30 H Albumin/Globulin 1.15 Ratio POC Venous 1.2 Lactate Urine Color YELLOW Urine Clarity SLIGHTLY CLOUDY A Urine pH 6.0 Urine Specific 1.012 [place] Urine Ketones NEGATIVE Urine Nitrite POSITIVE A Urine Bilirubin NEGATIVE Urine 1+ H Urobilinogen Urine Leukocyte 2+ H Esterase Urine Microscopic 1 RBC Urine Microscopic 28 H WBC Urine Bacteria FEW A Urine Mucus FEW A Urine Hemoglobin 1+ H Urine Random 23 L Sodium Urine Glucose NEGATIVE Urine Total 1+ H Protein Lactic Acid Level 1.6 Test 01/01/19 14:57 01/01/19 20:00 01/02/19 04:49 01/02/19 04:51 Prothrombin Time 14.7 Prothrombin Time 1.1 Ratio INR International 1.14 Normalized Ratio Activated 30.4 Partial Thrombopl ast Time Free Thyroxine 2.20 Lactic Acid Level 1.8 Iron Level 14 L Total Iron 254 Binding Capacity Percent Iron 6 L Saturation Ferritin 111.0 Thyroid 0.477 0.286 L Stimulating Hormone (TSH) Triglycerides 70 Level Cholesterol Level 97 L LDL Cholesterol, 57 Calculated HDL Cholesterol 26 L Cholesterol/HDL 3.7 Ratio White Blood Count 13.1 #H Red Blood Count 3.33 L Hemoglobin 9.4 L Hematocrit 28.9 L Mean Corpuscular 86.8 Volume Mean Corpuscular 28.2 L Hemoglobin Mean Corpuscular 32.5 Hemoglobin Concen t Red Cell 13.1 Distribution Width Platelet Count 278 Mean Platelet 10.3 Volume Immature 0.500 H Granulocytes % Neutrophils % 93.6 H Lymphocytes % 3.4 L Monocytes % 2.3 Eosinophils % 0.0 Basophils % 0.2 Nucleated Red 0.0 Blood Cells % Immature 0.070 H Granulocytes # Neutrophils # 12.2 H Lymphocytes # 0.4 L Monocytes # 0.3 Eosinophils # 0.0 Basophils # 0.0 Nucleated Red 0.0 Blood Cells # Sodium Level 133 L Potassium Level 4.1 Chloride Level 98 Carbon Dioxide 25 Level Anion Gap 10 Blood Urea 15 Nitrogen Creatinine 0.79 Est Glomerular > 60 Filtrat Rate mL/min Glucose Level 131 Hemoglobin A1c 6.0 H Calcium Level 8.9 Phosphorus Level 3.1 Magnesium Level 2.2 Total Bilirubin 0.2 Direct Bilirubin 0.00 Indirect 0.2 Bilirubin Aspartate Amino 29 Transf (AST/SGOT) Alanine 30 Aminotransferase (ALT/SGPT) Alkaline 97 Phosphatase Total Protein 6.3 Albumin 3.1 L Globulin 3.20 Albumin/Globulin 0.96 Ratio Medications Medication Current Medications IV Flush (NS 3 ml) 3 ml PER PROTOCOL IV ; Start 01/01/19 at 15:00 Ondansetron HCl (Zofran Inj) 4 mg Q6H PRN IV NAUSEA/VOMITING; Start 01/01/19 at 15:00 Acetaminophen (Tylenol Tab) 650 mg Q6H PRN PO .PAIN 1-3 OR TEMP; Start 01/01/19 at 15:00 Acetaminophen/ Hydrocodone Bitart ([place] (5/325)) 1 tab Q6H PRN PO .MOD PAIN 4- 6; Start 01/01/19 at 15:00 Morphine Sulfate (morphine) 2 mg Q4H PRN IV .SEVERE PAIN 7-10; Start 01/01/19 at 15:00 Docusate Sodium (Colace) 100 mg Q12H PRN PO .CONSTIPATION; Start 01/01/19 at 15:00 Magnesium Hydroxide (Milk Of Mag) 30 ml DAILY PRN PO .CONSTIPATION; Start 01/01 at 15:00 Heparin Sodium (Porcine) (Heparin (5000 Units/1ml)) 5,000 unit Q12 SC Last administered on 01/02/19at 09:23; Admin Dose 5,000 UNIT; Start 01/01/19 at 21:00 Sodium Chloride 1,000 ml @ 75 mls/hr [id number] IV Last administered on 01/01/19at 22:58; Admin Dose 75 MLS/HR; Start 01/01/19 at 14:36 Lorazepam (Ativan) 0.5 mg Q6H PRN IV ANXIETY; Start 01/01/19 at 15:00 Albuterol/ Ipratropium (Duoneb) 3 ml Q4H RESP THERAPY HHN Last administered on 01/02/19at 09:29; Admin Dose 3 ML; Start 01/01/19 at 17:00 Piperacillin Sod/ Tazobactam Sod 100 ml @ 200 mls/hr Q6 IVPB Last administered on 01/02/19at 05:34; Admin Dose 200 MLS/HR; Start 01/01/19 at 18:00 Hydralazine HCl (Apresoline) 10 mg Q6H PRN IV ELEVATED BLOOD PRESSURE; Start 01/01/19 at 15:00 Nitroglycerin (Nitroglycerin (Sl Tab) 0.4 Mg) 1 tab Q5M PRN SL ANGINA; Start 01/01/19 at 15:00 Fluoxetine HCl (Prozac) 20 mg DAILY PO Last administered on 01/02/19 09:19; Admin Dose 20 MG; Start 01/02/19 at 09:00 Methylprednisolone Sodium Succinate (Solu-Medrol) 80 mg Q8 IV Last administered on 01/02/19 05:33; Admin Dose 80 MG; Start 01/01/19 at 15:00 Atorvastatin Calcium (Lipitor) 10 mg HS PO Last administered on 01/01/19at 21:47; Admin Dose 10 MG; Start 01/01/19 at 21:00 Arformoterol Tartrate (Brovana (Neb)) 2 ml BID RESP THERAPY INH Last administered on 01/02/19 09:28; Admin Dose 2 ML; Start 01/01/19 at 20:00 Budesonide (Pulmicort (Neb)) 0.5 mg BID RESP THERAPY INH Last administered on 01/02/19 09:29; Admin Dose 0.5 MG; Start 01/01/19 at 20:00 Sodium Chloride ([place] Nasal Gel) 1 applic BID PRN NASAL NASAL DRYNESS Last administered on 01/02/19at 04:01; Admin Dose 1 APPLIC; Start 01/01/19 at 23:00 Doxycycline Hyclate (Vibramycin) 100 mg BID PO Last administered on 01/02/19 09:20; Admin Dose 100 MG; Start 01/02/19 at 09:00 Ferric Sodium Gluconate Complex 125 mg/Sodium Chloride 110 ml @ 110 mls/hr DAILY@1300 IVPB ; Start 01/02/19 at 13:00; Stop 01/06/19 at 13:59 ALMA ADAMS MD Jan 02, 2019 11:21
[2019-01-02] MEDS: ACETAMINOPHEN 325 MG TAB PO PRN ×2 (12:55→19:47)
[2019-01-02] MEDS: DOCUSATE SODIUM 100 MG CAP PO PRN ×2 (14:30→19:47)
[2019-01-02] MEDS: METHYLPREDNISOLONE 40 MG INJ IV SCH (15:00)
[2019-01-02] MEDS: HYDROCODONE/APAP (5/325) TAB PO PRN (15:00)
[2019-01-02] MEDS: SOD FERRIC GLUC COMPLX 125 MG in SOD CHLORIDE 0.9% 100 ML IVPB SCH (15:01)
[2019-01-02 15:15] VITALS: BP 128/71; PULSE 97; RESP 16
[2019-01-02] MEDS: SOD CHLORIDE 0.45% 1,000 ML IV SCH (18:07)
[2019-01-02 20:08] VITALS: BP 127/58; PULSE 95; RESP 18
[2019-01-02] MEDS: ATORVASTATIN 10 MG TAB PO SCH (20:49)
[2019-01-03] MEDS: ALBUTEROL/IPRATROPIUM (NEB) 3 ML AMP HHN SCH ×6 (01:41→20:17)
[2019-01-03 01:57] VITALS: BP 129/69; PULSE 86; RESP 19
[2019-01-03] MEDS: PIPER-TAZO 3.375 GM IV (PMX) 100 ML IVPB SCH ×3 (05:32→18:31)
[2019-01-03] MEDS: SOD CHLORIDE 0.45% 1,000 ML IV SCH ×2 (05:50→11:50)
[2019-01-03] MEDS: ARFORMOTEROL TARTRATE 15MCG/2 ML AMP INH SCH ×2 (07:57→20:20)
[2019-01-03] MEDS: BUDESONIDE (NEB) 0.5MG/2ML AMP INH SCH ×2 (07:57→20:19)
--- NOTE | 2019-01-03 08:24 | CONS ---
Assessment/Plan Assessment/Plan Hospital Course (Demo Recall) 1) RML pneumonia following a 4 day stay in a hospital for COPD and (altitude sickness?) sputum cx was just collected nasal swab for MRSA is pending blood cx are NGTD continue with zosyn and add doxycycline for atypical and MRSA coverage I agree with treating for more resistant bacteria due to her recent stay at a hospital because of wheezing pt was given steroids, currently there is no wheezing 01/03 - GNR in sputum cx neg MRSA screen, d/c doxycycline and conitnue with zosyn a.m. labs were not obtained, pt got stuck multiple times, told nurse ok to skip this day's labs will repeat tomorrow a.m. 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, V, no BM for 4 days no dysuria Exam/Review of Systems Exam Vitals Vital Signs Date Temp Pulse Resp B/P (MAP) Pulse Ox O2 O2 Flow FiO2 Time Delivery Rate 01/03/19 2.0 08:08 01/03/19 90 22 97 Nasal 08:08 Cannula 01/03/19 98.1 129/69 01:57 (89) 01/01/19 21 13:11 Intake and Output 01/02/19 01/02/19 01/03/19 1515:00 23:00 07:00 IntakeIntake Total 580 ml 1230 ml 900 ml BalanceBalance 580 ml 1230 ml 900 ml Constitutional: alert, oriented Eyes: nl sclera ENMT: mucosa pink and moist Respiratory: clear to auscultation, other (distant BS) Cardiovascular: regular rate and rhythm Gastrointestinal: soft, non-tender Results Result Diagram: 01/02/19 0451 01/02/19 0451 Medications Medication Current Medications IV Flush (NS 3 ml) 3 ml PER PROTOCOL IV ; Start 01/01/19 at 15:00 Ondansetron HCl (Zofran Inj) 4 mg Q6H PRN IV NAUSEA/VOMITING; Start 01/01/19 at 15:00 Acetaminophen (Tylenol Tab) 650 mg Q6H PRN PO .PAIN 1-3 OR TEMP Last administered on 01/02/19 19:47; Admin Dose 650 MG; Start 01/01/19 at 15:00 Acetaminophen/ Hydrocodone Bitart ([place] (5/325)) 1 tab Q6H PRN PO .MOD PAIN 4- 6 Last administered on 01/02/19 15:00; Admin Dose 1 TAB; Start 01/01/19 at 15:00 Morphine Sulfate (morphine) 2 mg Q4H PRN IV .SEVERE PAIN 7-10; Start 01/01/19 at 15:00 Docusate Sodium (Colace) 100 mg Q12H PRN PO .CONSTIPATION Last administered on 01/02/19 19:47; Admin Dose 100 MG; Start 01/01/19 at 15:00 Magnesium Hydroxide (Milk Of Mag) 30 ml DAILY PRN PO .CONSTIPATION; Start 01/01/19 at 15:00 Heparin Sodium (Porcine) (Heparin (5000 Units/1ml)) 5,000 unit Q12 SC Last administered on 01/02/19 20:50; Admin Dose 5,000 UNIT; Start 01/01/19 at 21:00 Sodium Chloride 1,000 ml @ 75 mls/hr [id number] IV Last administered on 01/02/19 18:07; Admin Dose 75 MLS/HR; Start 01/01/19 at 14:36 Lorazepam (Ativan) 0.5 mg Q6H PRN IV ANXIETY; Start 01/01/19 at 15:00 Albuterol/ Ipratropium (Duoneb) 3 ml Q4H RESP THERAPY HHN Last administered on 01/03/19 07:57; Admin Dose 3 ML; Start 01/01/19 at 17:00 Piperacillin Sod/ Tazobactam Sod 100 ml @ 200 mls/hr Q6 IVPB Last administered on 01/03/19 05:32; Admin Dose 200 MLS/HR; Start 01/01/19 at 18:00 Hydralazine HCl (Apresoline) 10 mg Q6H PRN IV ELEVATED BLOOD PRESSURE; Start 01/01/19 at 15:00 Nitroglycerin (Nitroglycerin (Sl Tab) 0.4 Mg) 1 tab Q5M PRN SL ANGINA; Start 01/01/19 at 15:00 Fluoxetine HCl (Prozac) 20 mg DAILY PO Last administered on 01/02/19 09:19; Admin Dose 20 MG; Start 01/02/19 at 09:00 Atorvastatin Calcium (Lipitor) 10 mg HS PO Last administered on 01/02/19 20:49; Admin Dose 10 MG; Start 01/01/19 at 21:00 Arformoterol Tartrate (Brovana (Neb)) 2 ml BID RESP THERAPY INH Last administered on 01/03/19 07:57; Admin Dose 2 ML; Start 01/01/19 at 20:00 Budesonide (Pulmicort (Neb)) 0.5 mg BID RESP THERAPY INH Last administered on 01/03/19 07:57; Admin Dose 0.5 MG; Start 01/01/19 at 20:00 Sodium Chloride ([place] Nasal Gel) 1 applic BID PRN NASAL NASAL DRYNESS Last administered on 01/02/19 12:55; Admin Dose 1 APPLIC; Start 01/01/19 at 23:00 Doxycycline Hyclate (Vibramycin) 100 mg BID PO Last administered on 01/02/19 20:49; Admin Dose 100 MG; Start 01/02/19 at 09:00 Ferric Sodium Gluconate Complex 125 mg/Sodium Chloride 110 ml @ 110 mls/hr DAILY@1300 IVPB Last administered on 01/02/19 15:01; Admin Dose 110 MLS/HR; Start 01/02/19 at 13:00; Stop 01/06/19 at 13:59 Methylprednisolone Sodium Succinate (Solu-Medrol) 40 mg DAILY IV Last administered on 01/02/19 15:00; Admin Dose 40 MG; Start 01/02/19 at 13:00 CLARENCE TOBAR MD Jan 03, 2019 08:24
[2019-01-03 08:25] VITALS: BP 126/68; PULSE 76; RESP 18
[2019-01-03] MEDS ORDERED: METHYLPREDNISOLONE 40 MG INJ IV SCH (09:00)
[2019-01-03] MEDS: FLUOXETINE 20 MG CAP PO SCH (09:24)
[2019-01-03] MEDS: METHYLPREDNISOLONE 40 MG INJ IV SCH (09:24)
[2019-01-03] MEDS: DOCUSATE SODIUM 100 MG CAP PO PRN (09:27)
[2019-01-03] MEDS: HEPARIN 5,000 UNIT/1 ML VIAL SC SCH ×2 (09:29→20:12)
--- NOTE | 2019-01-03 09:29 | PN ---
Date/Time of Note Date/Time of Note DATE: 01/03/19 TIME: 09:22 Assessment/Plan VTE Prophylaxis Risk score (from Ns)>0 risk: 8 SCD applied (from Ns): Yes Pharmacological prophylaxis: NA/contraindicated Pharm contraindication: low risk/ambulating Lines/Catheters IV Catheter Type (from Nrsg): Peripheral IV Assessment/Plan Problems: (1) COPD with exacerbation Status: Acute (2) Healthcare-associated pneumonia Status: Acute (3) Hypoxia Status: Acute (4) Severe sepsis Status: Acute Assessment/Plan 1.) Continue IV steroids, Nebulized bronchodilators for COPD exacerbation. 2.) On antibiotics per ID for HCAP and UTI. Await final sputum culture. 3.) Add mucolytic agent for chest congestion. 4.) Senokot and Miralax for constipation. 5.) No RUG pain today. Renal U/S negative. 6.) Unable to draw labs today. OK to re-attempt tomorrow. 7.) Increase activity - SCD's when in bed. Result Diagram: 01/02/19 0451 01/02/19 045 Subjective 24 Hr Interval Summary Free Text/Dictation States her breathing is less labored today but not yet back to baseline. Complains of constipation. No BM for 4 days. No further fever. Constitutional: no complaints Respiratory: cough, wheezing Cardiovascular: no complaints Gastrointestinal: constipation Genitourinary: no complaints Exam/Review of Systems Exam Vitals Vital Signs Date Temp Pulse Resp B/P (MAP) Pulse Ox O2 O2 Flow FiO2 Time Delivery Rate 01/03/19 97.6 76 18 126/68 96 08:25 (87) 01/03/19 2.0 08:08 01/03/19 Nasal 08:08 Cannula 01/01/19 21 13:11 Intake and Output 01/02/19 01/02/19 01/03/19 1515:00 23:00 07:00 IntakeIntake Total 580 ml 1230 ml 900 ml BalanceBalance 580 ml 1230 ml 900 ml Constitutional: alert, oriented Respiratory: diminished breath sounds Cardiovascular: regular rate and rhythm Gastrointestinal: soft, nl liver, spleen, non-tender Musculoskeletal: nl extremities to inspection Medications Medication Current Medications IV Flush (NS 3 ml) 3 ml PER PROTOCOL IV ; Start 01/01/19 at 15:00 Ondansetron HCl (Zofran Inj) 4 mg Q6H PRN IV NAUSEA/VOMITING; Start 01/01/19 at 15:00 Acetaminophen (Tylenol Tab) 650 mg Q6H PRN PO .PAIN 1-3 OR TEMP Last administered on 01/02/19 19:47; Admin Dose 650 MG; Start 01/01/19 at 15:00 Acetaminophen/ Hydrocodone Bitart ([place] (5/325)) 1 tab Q6H PRN PO .MOD PAIN 4- 6 Last administered on 01/02/19 15:00; Admin Dose 1 TAB; Start 01/01/19 at 15:00 Morphine Sulfate (morphine) 2 mg Q4H PRN IV .SEVERE PAIN 7-10; Start 01/01/19 at 15:00 Docusate Sodium (Colace) 100 mg Q12H PRN PO .CONSTIPATION Last administered on 01/02/19 19:47; Admin Dose 100 MG; Start 01/01/19 at 15:00 Magnesium Hydroxide (Milk Of Mag) 30 ml DAILY PRN PO .CONSTIPATION; Start 01/01/19 at 15:00 Heparin Sodium (Porcine) (Heparin (5000 Units/1ml)) 5,000 unit Q12 SC Last administered on 01/02/19 20:50; Admin Dose 5,000 UNIT; Start 01/01/19 at 21:00 Sodium Chloride 1,000 ml @ 75 mls/hr [id number] IV Last administered on 01/02/19 18:07; Admin Dose 75 MLS/HR; Start 01/01/19 at 14:36 Lorazepam (Ativan) 0.5 mg Q6H PRN IV ANXIETY; Start 01/01/19 at 15:00 Albuterol/ Ipratropium (Duoneb) 3 ml Q4H RESP THERAPY HHN Last administered on 01/03/19 07:57; Admin Dose 3 ML; Start 01/01/19 at 17:00 Piperacillin Sod/ Tazobactam Sod 100 ml @ 200 mls/hr Q6 IVPB Last administered on 01/03/19 05:32; Admin Dose 200 MLS/HR; Start 01/01/19 at 18:00 Hydralazine HCl (Apresoline) 10 mg Q6H PRN IV ELEVATED BLOOD PRESSURE; Start 01/01/19 at 15:00 Nitroglycerin (Nitroglycerin (Sl Tab) 0.4 Mg) 1 tab Q5M PRN SL ANGINA; Start 01/01/19 at 15:00 Fluoxetine HCl (Prozac) 20 mg DAILY PO Last administered on 01/02/19 09:19; Admin Dose 20 MG; Start 01/02/19 at 09:00 Atorvastatin Calcium (Lipitor) 10 mg HS PO Last administered on 01/02/19 20:49; Admin Dose 10 MG; Start 01/01/19 at 21:00 Arformoterol Tartrate (Brovana (Neb)) 2 ml BID RESP THERAPY INH Last administered on 01/03/19 07:57; Admin Dose 2 ML; Start 01/01/19 at 20:00 Budesonide (Pulmicort (Neb)) 0.5 mg BID RESP THERAPY INH Last administered on 01/03/19 07:57; Admin Dose 0.5 MG; Start 01/01/19 at 20:00 Sodium Chloride ([place] Nasal Gel) 1 applic BID PRN NASAL NASAL DRYNESS Last administered on 01/02/19at 12:55; Admin Dose 1 APPLIC; Start 01/01/19 at 23:00 Ferric Sodium Gluconate Complex 125 mg/Sodium Chloride 110 ml @ 110 mls/hr DAILY@1300 IVPB Last administered on 01/02/19 15:01; Admin Dose 110 MLS/HR; Start 01/02/19 at 13:00; Stop 01/06/19 at 13:59 Methylprednisolone Sodium Succinate (Solu-Medrol) 40 mg DAILY IV Last administered on 01/02/19 15:00; Admin Dose 40 MG; Start 01/02/19 at 13:00 ROBLES JC Jan 03, 2019 09:29
[2019-01-03] MEDS ORDERED: POLYETHYLENE GLYCOL 17 GM PACKET PO PRN (10:00)
[2019-01-03 13:59] VITALS: BP 133/69; PULSE 94; RESP 18
[2019-01-03] MEDS: SOD FERRIC GLUC COMPLX 125 MG in SOD CHLORIDE 0.9% 100 ML IVPB SCH (15:35)
[2019-01-03] MEDS: ACETAMINOPHEN 325 MG TAB PO PRN (18:33)
[2019-01-03 20:04] VITALS: BP 130/60; PULSE 90; RESP 18
[2019-01-03] MEDS: ATORVASTATIN 10 MG TAB PO SCH (20:10)
[2019-01-04] MEDS: PIPER-TAZO 3.375 GM IV (PMX) 100 ML IVPB SCH ×2 (00:20→05:18)
[2019-01-04] MEDS: ALBUTEROL/IPRATROPIUM (NEB) 3 ML AMP HHN SCH ×6 (00:37→20:07)
[2019-01-04 01:20] VITALS: BP 160/82; PULSE 97; RESP 19
[2019-01-04 02:00] VITALS: BP 132/62; PULSE 80; RESP 18
[2019-01-04] MEDS: ACETAMINOPHEN 325 MG TAB PO PRN (04:27)
[2019-01-04] MEDS: LORAZEPAM 2 MG INJ IV PRN ×2 (04:31→22:14)
[2019-01-04 07:29] VITALS: BP 130/69; PULSE 87; RESP 20
[2019-01-04] MEDS: ARFORMOTEROL TARTRATE 15MCG/2 ML AMP INH SCH ×2 (08:09→20:06)
[2019-01-04] MEDS: BUDESONIDE (NEB) 0.5MG/2ML AMP INH SCH ×2 (08:10→20:07)
--- NOTE | 2019-01-04 08:17 | PN ---
Date/Time of Note Date/Time of Note DATE: 01/04/19 TIME: 08:14 Assessment/Plan VTE Prophylaxis Risk score (from Nsg)>0 risk: 8 SCD applied (from Ns): Yes Pharmacological prophylaxis: NA/contraindicated Pharm contraindication: low risk/ambulating Lines/Catheters IV Catheter Type (from Nrsg): Peripheral IV Assessment/Plan Assessment/Plan 1.) Increase IV steroids, Nebulized bronchodilators for COPD exacerbation. 2.) ABX adjusted by ID. D/W Dr. Ng. Sputum cx with enterobacter. 3.) Added mucolytic agent for chest congestion. 4.) Senokot and Miralax for constipation. 5.) No RUG pain today. Renal U/S negative. 6.) Labs noted, CBC elevated, likely due to steroids. 7.) Increase activity - SCD's when in bed. 8.) SW evaluation noted. Patient requesting rehab at time of d/c and will need to arrange living situation. Result Diagram: 01/04/19 0434 01/04/19 0434 Results 24hrs Laboratory Tests Test 01/03/19 10:00 01/04/19 04:34 Stool Occult Blood NEGATIVE White Blood Count 16.0 #H Red Blood Count 3.59 L Hemoglobin 10.1 L Hematocrit 31.7 L Mean Corpuscular Volume 88.3 Mean Corpuscular Hemoglobin 28.1 L Mean Corpuscular Hemoglobin Concent 31.9 L Red Cell Distribution Width 13.4 Platelet Count 320 Mean Platelet Volume 10.1 Immature Granulocytes % 3.000 H Neutrophils % 77.4 H Lymphocytes % 10.2 L Monocytes % 9.2 Eosinophils % 0.1 Basophils % 0.1 Nucleated Red Blood Cells % 0.0 Immature Granulocytes # 0.480 H Neutrophils # 12.4 H Lymphocytes # 1.6 Monocytes # 1.5 H Eosinophils # 0.0 Basophils # 0.0 Nucleated Red Blood Cells # 0.0 Sodium Level 136 Potassium Level 4.1 Chloride Level 101 Carbon Dioxide Level 27 Anion Gap 8 Blood Urea Nitrogen 14 Creatinine 0.68 Est Glomerular Filtrat Rate mL/min > 60 Glucose Level 85 # Calcium Level 8.8 Total Bilirubin 0.2 Direct Bilirubin 0.00 Indirect Bilirubin 0.2 Aspartate Amino Transf (AST/SGOT) 37 Alanine Aminotransferase (ALT/SGPT) 39 Alkaline Phosphatase 73 Total Protein 6.0 L Albumin 3.1 L Globulin 2.90 Albumin/Globulin Ratio 1.06 Subjective 24 Hr Interval Summary Free Text/Dictation Patient feels only slightly better than yesterday, No significant change overall. Respiratory: cough, shortness of breath Cardiovascular: no complaints Gastrointestinal: no complaints Exam/Review of Systems Exam Vitals Vital Signs Date Temp Pulse Resp B/P (MAP) Pulse Ox O2 O2 Flow FiO2 Time Delivery Rate 01/04/19 97.5 87 20 130/69 97 07:29 (89) 01/04/19 2.0 05:25 01/04/19 Nasal 05:23 Cannula 01/01/19 21 13:11 Intake and Output 01/03/19 01/03/19 01/04/19 1414:59 22:59 06:59 IntakeIntake Total 760 ml 1070 ml 720 ml OutputOutput Total 400 ml BalanceBalance 360 ml 1070 ml 720 ml Constitutional: alert, oriented Neck: supple, non-tender Respiratory: congested cough, diminished breath sounds Cardiovascular: regular rate and rhythm, nl pulses Gastrointestinal: soft, non-tender Musculoskeletal: nl extremities to inspection Results Results 24hrs Laboratory Tests Test 01/03/19 10:00 01/04/19 04:34 Stool Occult Blood NEGATIVE White Blood Count 16.0 #H Red Blood Count 3.59 L Hemoglobin 10.1 L Hematocrit 31.7 L Mean Corpuscular Volume 88.3 Mean Corpuscular Hemoglobin 28.1 L Mean Corpuscular Hemoglobin Concent 31.9 L Red Cell Distribution Width 13.4 Platelet Count 320 Mean Platelet Volume 10.1 Immature Granulocytes % 3.000 H Neutrophils % 77.4 H Lymphocytes % 10.2 L Monocytes % 9.2 Eosinophils % 0.1 Basophils % 0.1 Nucleated Red Blood Cells % 0.0 Immature Granulocytes # 0.480 H Neutrophils # 12.4 H Lymphocytes # 1.6 Monocytes # 1.5 H Eosinophils # 0.0 Basophils # 0.0 Nucleated Red Blood Cells # 0.0 Sodium Level 136 Potassium Level 4.1 Chloride Level 101 Carbon Dioxide Level 27 Anion Gap 8 Blood Urea Nitrogen 14 Creatinine 0.68 Est Glomerular Filtrat Rate mL/min > 60 Glucose Level 85 # Calcium Level 8.8 Total Bilirubin 0.2 Direct Bilirubin 0.00 Indirect Bilirubin 0.2 Aspartate Amino Transf (AST/SGOT) 37 Alanine Aminotransferase (ALT/SGPT) 39 Alkaline Phosphatase 73 Total Protein 6.0 L Albumin 3.1 L Globulin 2.90 Albumin/Globulin Ratio 1.06 Medications Medication Current Medications IV Flush (NS 3 ml) 3 ml PER PROTOCOL IV ; Start 01/01/19 at 15:00 Ondansetron HCl (Zofran Inj) 4 mg Q6H PRN IV NAUSEA/VOMITING; Start 01/01/19 at 15:00 Acetaminophen (Tylenol Tab) 650 mg Q6H PRN PO .PAIN 1-3 OR TEMP Last administered on 01/04/19 04:27; Admin Dose 650 MG; Start 01/01/19 at 15:00 Acetaminophen/ Hydrocodone Bitart ([place] (5/325)) 1 tab Q6H PRN PO .MOD PAIN 4- 6 Last administered on 01/02/19 15:00; Admin Dose 1 TAB; Start 01/01/19 at 15:00 Morphine Sulfate (morphine) 2 mg Q4H PRN IV .SEVERE PAIN 7-10; Start 01/01/19 at 15:00 Docusate Sodium (Colace) 100 mg Q12H PRN PO .CONSTIPATION Last administered on 01/03/19 09:27; Admin Dose 100 MG; Start 01/01/19 at 15:00 Magnesium Hydroxide (Milk Of Mag) 30 ml DAILY PRN PO .CONSTIPATION Last administered on 01/03/19 09:27; Admin Dose 30 ML; Start 01/01/19 at 15:00 Heparin Sodium (Porcine) (Heparin (5000 Units/1ml)) 5,000 unit Q12 SC Last administered on 01/03/19 20:12; Admin Dose 5,000 UNIT; Start 01/01/19 at 21:00 Sodium Chloride 1,000 ml @ 75 mls/hr [id number] IV Last administered on 01/03/19 11:50; Admin Dose 75 MLS/HR; Start 01/01/19 at 14:36 Lorazepam (Ativan) 0.5 mg Q6H PRN IV ANXIETY Last administered on 01/04/19 04:31; Admin Dose 0.5 MG; Start 01/01/19 at 15:00 Albuterol/ Ipratropium (Duoneb) 3 ml Q4H RESP THERAPY HHN Last administered on 01/04/19 08:09; Admin Dose 3 ML; Start 01/01/19 at 17:00 Piperacillin Sod/ Tazobactam Sod 100 ml @ 200 mls/hr Q6 IVPB Last administered on 01/04/19 05:18; Admin Dose 200 MLS/HR; Start 01/01/19 at 18:00 Hydralazine HCl (Apresoline) 10 mg Q6H PRN IV ELEVATED BLOOD PRESSURE; Start 01/01/19 at 15:00 Nitroglycerin (Nitroglycerin (Sl Tab) 0.4 Mg) 1 tab Q5M PRN SL ANGINA; Start 01/01/19 at 15:00 Fluoxetine HCl (Prozac) 20 mg DAILY PO Last administered on 01/03/19 09:24; Admin Dose 20 MG; Start 01/02/19 at 09:00 Atorvastatin Calcium (Lipitor) 10 mg HS PO Last administered on 01/03/19 20:10; Admin Dose 10 MG; Start 01/01/19 at 21:00 Arformoterol Tartrate (Brovana (Neb)) 2 ml BID RESP THERAPY INH Last administered on 01/04/19 08:09; Admin Dose 2 ML; Start 01/01/19 at 20:00 Budesonide (Pulmicort (Neb)) 0.5 mg BID RESP THERAPY INH Last administered on 01/04/19 08:10; Admin Dose 0.5 MG; Start 01/01/19 at 20:00 Sodium Chloride ([place] Nasal Gel) 1 applic BID PRN NASAL NASAL DRYNESS Last administered on 01/02/19 12:55; Admin Dose 1 APPLIC; Start 01/01/19 at 23:00 Ferric Sodium Gluconate Complex 125 mg/Sodium Chloride 110 ml @ 110 mls/hr DAILY@1300 IVPB Last administered on 01/03/19 15:35; Admin Dose 110 MLS/HR; Start 01/02/19 at 13:00; Stop 01/06/19 at 13:59 Methylprednisolone Sodium Succinate (Solu-Medrol) 40 mg DAILY IV Last administered on 01/03/19 09:24; Admin Dose 40 MG; Start 01/02/19 at 13:00 Polyethylene Glycol (Miralax) 17 gm DAILY PRN PO constipation; Start 01/03/19 at 10:00 ROBLES JC Jan 04, 2019 08:17
[2019-01-04] MEDS ORDERED: AZITHROMYCIN 250 MG TAB PO ONE (08:30)
[2019-01-04] MEDS: FLUOXETINE 20 MG CAP PO SCH (08:31)
[2019-01-04] MEDS: HEPARIN 5,000 UNIT/1 ML VIAL SC SCH ×2 (08:36→21:06)
[2019-01-04] MEDS: METHYLPREDNISOLONE 40 MG INJ IV SCH ×2 (09:25→21:01)
[2019-01-04] MEDS: CEFTRIAXONE 1 GM/50 ML (PMX) 50 ML IVPB SCH (09:26)
[2019-01-04] MEDS: SOD CHLORIDE 0.45% 1,000 ML IV SCH ×2 (09:47→23:36)
[2019-01-04] MEDS: SOD FERRIC GLUC COMPLX 125 MG in SOD CHLORIDE 0.9% 100 ML IVPB SCH (13:24)
[2019-01-04 13:48] VITALS: BP 153/89; PULSE 98; RESP 20
[2019-01-04 20:03] VITALS: BP 154/87; PULSE 105; RESP 19
[2019-01-04] MEDS: ATORVASTATIN 10 MG TAB PO SCH (21:01)
[2019-01-05] MEDS: ALBUTEROL/IPRATROPIUM (NEB) 3 ML AMP HHN SCH ×6 (01:00→20:20)
[2019-01-05 02:00] VITALS: BP 136/76; PULSE 98; RESP 18
--- NOTE | 2019-01-05 07:08 | CONS ---
Assessment/Plan Assessment/Plan Hospital Course (Demo Recall) 1) RML pneumonia following a 4 day stay in a hospital for COPD and (altitude sickness?) sputum cx was just collected nasal swab for MRSA is pending blood cx are NGTD continue with zosyn and add doxycycline for atypical and MRSA coverage I agree with treating for more resistant bacteria due to her recent stay at a hospital because of wheezing pt was given steroids, currently there is no wheezing 01/03 - GNR in sputum cx neg MRSA screen, d/c doxycycline and conitnue with zosyn a.m. labs were not obtained, pt got stuck multiple times, told nurse ok to skip this day's labs will repeat tomorrow a.m. 01/04 - enterobacter in sputum cx pt feels a bit worse today, will change antibiotics to ceftriaxone/azithro for CAP, the enterobacter is sensitive to 3rd gen cephalosporins 01/05 - improved, steroids were increased when pt ready for d/c can change ceftriaxone to omnicef or vantin and continue with azithromycin 2) moderate pyuria with GNR in urine (e.coli) pt has some mild L CVAT, so will get a renal u/s likely zosyn will treat await final ID and sensi's 01/03 - renal u/s was ok e.coli is fairly sensitive, continue with zosyn 01/04 - change zosyn to ceftriaxone 01/05 - pt is asymptomatic 3) COPD 4) HTN 5) hx of CHF Consultation Date/Type/Reason Admit Date/Time Jan 01, 2019 at 14:28 Initial Consult Date 01/02/19 Type of Consult ID Date/Time of Note DATE: 01/05/19 TIME: 07:06 24 HR Interval Summary Free Text/Dictation pt states she is better today, wheezing is improved chest is not as tight and secretions are easier to bring up and are yellow-pink no abd pain or dysuria stools are ok no dysphagia Exam/Review of Systems Exam Vitals Vital Signs Date Temp Pulse Resp B/P (MAP) Pulse Ox O2 O2 Flow FiO2 Time Delivery Rate 01/05/19 100 24 92 Nasal 2.0 05:28 Cannula 01/05/19 98.6 136/76 02:00 (96) 01/01/19 21 13:11 Intake and Output 01/04/19 01/04/19 01/05/19 1515:00 23:00 07:00 IntakeIntake Total 2060 ml 1485 ml 595 ml BalanceBalance 2060 ml 1485 ml 595 ml Constitutional: alert, oriented Eyes: nl sclera ENMT: mucosa pink and moist Respiratory: clear to auscultation, other (distant BS) Cardiovascular: regular rate and rhythm Results Result Diagram: 01/05/19 0501 01/04/19 0434 Results 24hrs Laboratory Tests Test 01/05/19 05:01 White Blood Count 13.4 H Red Blood Count 3.29 L Hemoglobin 9.2 L Hematocrit 28.8 L Mean Corpuscular Volume 87.5 Mean Corpuscular Hemoglobin 28.0 L Mean Corpuscular Hemoglobin Concent 31.9 L Red Cell Distribution Width 13.2 Platelet Count 329 Mean Platelet Volume 9.5 Immature Granulocytes % 7.200 H Neutrophils % 79.7 H Lymphocytes % 8.5 L Monocytes % 4.3 Eosinophils % 0.1 Basophils % 0.2 Nucleated Red Blood Cells % 0.0 Immature Granulocytes # 0.970 H Neutrophils # 10.7 H Lymphocytes # 1.1 Monocytes # 0.6 Eosinophils # 0.0 Basophils # 0.0 Nucleated Red Blood Cells # 0.0 Medications Medication Current Medications IV Flush (NS 3 ml) 3 ml PER PROTOCOL IV ; Start 01/01/19 at 15:00 Ondansetron HCl (Zofran Inj) 4 mg Q6H PRN IV NAUSEA/VOMITING; Start 01/01/19 at 15:00 Acetaminophen (Tylenol Tab) 650 mg Q6H PRN PO .PAIN 1-3 OR TEMP Last administered on 01/04/19at 04:27; Admin Dose 650 MG; Start 01/01/19 at 15:00 Acetaminophen/ Hydrocodone Bitart ([place] (5/325)) 1 tab Q6H PRN PO .MOD PAIN 4- 6 Last administered on 01/02/19at 15:00; Admin Dose 1 TAB; Start 01/01/19 at 15:00 Morphine Sulfate (morphine) 2 mg Q4H PRN IV .SEVERE PAIN 7-10; Start 01/01/19 at 15:00 Docusate Sodium (Colace) 100 mg Q12H PRN PO .CONSTIPATION Last administered on 01/03/19at 09:27; Admin Dose 100 MG; Start 01/01/19 at 15:00 Magnesium Hydroxide (Milk Of Mag) 30 ml DAILY PRN PO .CONSTIPATION Last administered on 01/03/19 09:27; Admin Dose 30 ML; Start 01/01/19 at 15:00 Heparin Sodium (Porcine) (Heparin (5000 Units/1ml)) 5,000 unit Q12 SC Last administered on 01/04/19 21:06; Admin Dose 5,000 UNIT; Start 01/01/19 at 21:00 Sodium Chloride 1,000 ml @ 75 mls/hr [id number] IV Last administered on 01/04/19 23:36; Admin Dose 75 MLS/HR; Start 01/01/19 at 14:36 Lorazepam (Ativan) 0.5 mg Q6H PRN IV ANXIETY Last administered on 01/04/19 22:14; Admin Dose 0.5 MG; Start 01/01/19 at 15:00 Albuterol/ Ipratropium (Duoneb) 3 ml Q4H RESP THERAPY HHN Last administered on 01/05/19 05:27; Admin Dose 3 ML; Start 01/01/19 at 17:00 Hydralazine HCl (Apresoline) 10 mg Q6H PRN IV ELEVATED BLOOD PRESSURE; Start 01/01/19 at 15:00 Nitroglycerin (Nitroglycerin (Sl Tab) 0.4 Mg) 1 tab Q5M PRN SL ANGINA; Start 01/01/19 at 15:00 Fluoxetine HCl (Prozac) 20 mg DAILY PO Last administered on 01/04/19 08:31; Admin Dose 20 MG; Start 01/02/19 at 09:00 Atorvastatin Calcium (Lipitor) 10 mg HS PO Last administered on 01/04/19 21: 01; Admin Dose 10 MG; Start 01/01/19 at 21:00 Arformoterol Tartrate (Brovana (Neb)) 2 ml BID RESP THERAPY INH Last administered on 01/04/19 20:06; Admin Dose 2 ML; Start 01/01/19 at 20:00 Budesonide (Pulmicort (Neb)) 0.5 mg BID RESP THERAPY INH Last administered on 01/04/19 20:07; Admin Dose 0.5 MG; Start 01/01/19 at 20:00 Sodium Chloride ([place] Nasal Gel) 1 applic BID PRN NASAL NASAL DRYNESS Last administered on 01/02/19at 12:55; Admin Dose 1 APPLIC; Start 01/01/19 at 23:00 Ferric Sodium Gluconate Complex 125 mg/Sodium Chloride 110 ml @ 110 mls/hr DAILY@1300 IVPB Last administered on 01/04/19at 13:24; Admin Dose 110 MLS/HR; Start 01/02/19 at 13:00; Stop 01/06/19 at 13:59 Polyethylene Glycol (Miralax) 17 gm DAILY PRN PO constipation; Start 01/03/19 at 10:00 Ceftriaxone Sodium 50 ml @ 100 mls/hr Q24H IVPB Last administered on 01/04/19 09:26; Admin Dose 100 MLS/HR; Start 01/04/19 at 09:00 Azithromycin (Zithromax) 250 mg DAILY PO ; Start 01/05/19 at 09:00 Methylprednisolone Sodium Succinate (Solu-Medrol) 40 mg Q12 IV Last administered on 01/04/19at 21:01; Admin Dose 40 MG; Start 01/04/19 at 09:00 CLARENCE TOBAR MD Jan 05, 2019 07:08
[2019-01-05 07:49] VITALS: BP 133/67; PULSE 71; RESP 22
--- NOTE | 2019-01-05 09:30 | PN ---
Date/Time of Note Date/Time of Note DATE: 01/05/19 TIME: 09:26 Assessment/Plan VTE Prophylaxis Risk score (from Ns)>0 risk: 6 SCD applied (from [facility]): Yes Pharmacological prophylaxis: heparin Lines/Catheters IV Catheter Type (from [facility]): Peripheral IV Assessment/Plan Hospital Course 1. Right lower lobe pneumonia, now on antibiotics. She has been seen by infectious disease specialist Dr. wan. She is overall better. She is less short of breath. 2. Urinary tract infection 3. COPD with acute exacerbation. She is improved and less short of breath. 4. Anemia, iron deficiency. I will start her on IV Ferrlecit . Her stool is negative for occult blood. 5. Right upper quadrant abdominal pain. She says that she has had a cholecystectomy in the past. She had an ultrasound of the kidneys which was unremarkable. Result Diagram: 01/05/19 0501 01/05/19 0501 Results 24hrs Laboratory Tests Test 01/05/19 05:01 White Blood Count 13.4 H Red Blood Count 3.29 L Hemoglobin 9.2 L Hematocrit 28.8 L Mean Corpuscular Volume 87.5 Mean Corpuscular Hemoglobin 28.0 L Mean Corpuscular Hemoglobin Concent 31.9 L Red Cell Distribution Width 13.2 Platelet Count 329 Mean Platelet Volume 9.5 Immature Granulocytes % 7.200 H Neutrophils % 79.7 H Lymphocytes % 8.5 L Monocytes % 4.3 Eosinophils % 0.1 Basophils % 0.2 Nucleated Red Blood Cells % 0.0 Immature Granulocytes # 0.970 H Neutrophils # 10.7 H Lymphocytes # 1.1 Monocytes # 0.6 Eosinophils # 0.0 Basophils # 0.0 Nucleated Red Blood Cells # 0.0 Sodium Level 134 L Potassium Level 4.5 Chloride Level 100 Carbon Dioxide Level 29 Anion Gap 5 Blood Urea Nitrogen 12 Creatinine 0.57 Est Glomerular Filtrat Rate mL/min > 60 Glucose Level 104 Calcium Level 8.4 Subjective 24 Hr Interval Summary Free Text/Dictation Priscilla is awake and alert this morning. She says that she is feeling better and breathing better. She is coughing up some sputum. Constitutional: no complaints, improved Respiratory: cough, shortness of breath Gastrointestinal: no complaints Musculoskeletal: no complaints Skin: no complaints Neurologic: no complaints Exam/Review of Systems Exam Vitals Vital Signs Date Temp Pulse Resp B/P (MAP) Pulse Ox O2 O2 Flow FiO2 Time Delivery Rate 01/05/19 98.0 71 22 133/67 93 07:49 (89) 01/05/19 Nasal 2.0 05:28 Cannula 01/01/19 21 13:11 Intake and Output 01/04/19 01/04/19 01/05/19 1515:00 23:00 07:00 IntakeIntake Total 2060 ml 1485 ml 595 ml BalanceBalance 2060 ml 1485 ml 595 ml Constitutional: alert, oriented, frail Respiratory: congested cough, diminished breath sounds Cardiovascular: regular rate and rhythm Gastrointestinal: soft, non-tender Musculoskeletal: nl extremities to inspection Results Results 24hrs Laboratory Tests Test 01/05/19 05:01 White Blood Count 13.4 H Red Blood Count 3.29 L Hemoglobin 9.2 L Hematocrit 28.8 L Mean Corpuscular Volume 87.5 Mean Corpuscular Hemoglobin 28.0 L Mean Corpuscular Hemoglobin Concent 31.9 L Red Cell Distribution Width 13.2 Platelet Count 329 Mean Platelet Volume 9.5 Immature Granulocytes % 7.200 H Neutrophils % 79.7 H Lymphocytes % 8.5 L Monocytes % 4.3 Eosinophils % 0.1 Basophils % 0.2 Nucleated Red Blood Cells % 0.0 Immature Granulocytes # 0.970 H Neutrophils # 10.7 H Lymphocytes # 1.1 Monocytes # 0.6 Eosinophils # 0.0 Basophils # 0.0 Nucleated Red Blood Cells # 0.0 Sodium Level 134 L Potassium Level 4.5 Chloride Level 100 Carbon Dioxide Level 29 Anion Gap 5 Blood Urea Nitrogen 12 Creatinine 0.57 Est Glomerular Filtrat Rate mL/min > 60 Glucose Level 104 Calcium Level 8.4 Medications Medication Current Medications IV Flush (NS 3 ml) 3 ml PER PROTOCOL IV ; Start 01/01/19 at 15:00 Ondansetron HCl (Zofran Inj) 4 mg Q6H PRN IV NAUSEA/VOMITING; Start 01/01/19 at 15:00 Acetaminophen (Tylenol Tab) 650 mg Q6H PRN PO .PAIN 1-3 OR TEMP Last administered on 01/04/19at 04:27; Admin Dose 650 MG; Start 01/01/19 at 15:00 Acetaminophen/ Hydrocodone Bitart ([place] (5/325)) 1 tab Q6H PRN PO .MOD PAIN 4- 6 Last administered on 01/02/19 15:00; Admin Dose 1 TAB; Start 01/01/19 at 15:00 Morphine Sulfate (morphine) 2 mg Q4H PRN IV .SEVERE PAIN 7-10; Start 01/01/19 at 15:00 Docusate Sodium (Colace) 100 mg Q12H PRN PO .CONSTIPATION Last administered on 01/03/19 09:27; Admin Dose 100 MG; Start 01/01/19 at 15:00 Magnesium Hydroxide (Milk Of Mag) 30 ml DAILY PRN PO .CONSTIPATION Last administered on 01/03/19 09:27; Admin Dose 30 ML; Start 01/01/19 at 15:00 Heparin Sodium (Porcine) (Heparin (5000 Units/1ml)) 5,000 unit Q12 SC Last administered on 01/04/19 21:06; Admin Dose 5,000 UNIT; Start 01/01/19 at 21:00 Sodium Chloride 1,000 ml @ 75 mls/hr [id number] IV Last administered on 01/04/19 23:36; Admin Dose 75 MLS/HR; Start 01/01/19 at 14:36 Lorazepam (Ativan) 0.5 mg Q6H PRN IV ANXIETY Last administered on 01/04/19 22:14; Admin Dose 0.5 MG; Start 01/01/19 at 15:00 Albuterol/ Ipratropium (Duoneb) 3 ml Q4H RESP THERAPY HHN Last administered on 01/05/19 05:27; Admin Dose 3 ML; Start 01/01/19 at 17:00 Hydralazine HCl (Apresoline) 10 mg Q6H PRN IV ELEVATED BLOOD PRESSURE; Start 01/01/19 at 15:00 Nitroglycerin (Nitroglycerin (Sl Tab) 0.4 Mg) 1 tab Q5M PRN SL ANGINA; Start 01/01/19 at 15:00 Fluoxetine HCl (Prozac) 20 mg DAILY PO Last administered on 01/04/19 08:31; Admin Dose 20 MG; Start 01/02/19 at 09:00 Atorvastatin Calcium (Lipitor) 10 mg HS PO Last administered on 01/04/19 21:01; Admin Dose 10 MG; Start 01/01/19 at 21:00 Arformoterol Tartrate (Brov[place] (Neb)) 2 ml BID RESP THERAPY INH Last administered on 01/04/19 20:06; Admin Dose 2 ML; Start 01/01/19 at 20:00 Budesonide (Pulmicort (Neb)) 0.5 mg BID RESP THERAPY INH Last administered on 01/04/19 20:07; Admin Dose 0.5 MG; Start 01/01/19 at 20:00 Sodium Chloride ([place] Nasal Gel) 1 applic BID PRN NASAL NASAL DRYNESS Last administered on 01/02/19 12:55; Admin Dose 1 APPLIC; Start 01/01/19 at 23:00 Ferric Sodium Gluconate Complex 125 mg/Sodium Chloride 110 ml @ 110 mls/hr ZAINA Y@1300 IVPB Last administered on 01/04/19 13:24; Admin Dose 110 MLS/HR; Start 01/02/19 at 13:00; Stop 01/06/19 at 13:59 Polyethylene Glycol (Miralax) 17 gm DAILY PRN PO constipation; Start 01/03/19 at 10:00 Ceftriaxone Sodium 50 ml @ 100 mls/hr Q24H IVPB Last administered on 01/04/19 09:26; Admin Dose 100 MLS/HR; Start 01/04/19 at 09:00 Azithromycin (Zithromax) 250 mg DAILY PO ; Start 01/05/19 at 09:00 Methylprednisolone Sodium Succinate (Solu-Medrol) 40 mg Q12 IV Last administered on 01/04/19 21:01; Admin Dose 40 MG; Start 01/04/19 at 09:00 ALMA ADAMS MD Jan 05, 2019 09:30
[2019-01-05] MEDS: HEPARIN 5,000 UNIT/1 ML VIAL SC SCH ×2 (09:33→21:23)
[2019-01-05] MEDS: METHYLPREDNISOLONE 40 MG INJ IV SCH ×2 (09:33→21:15)
[2019-01-05] MEDS: AZITHROMYCIN 250 MG TAB PO SCH (09:33)
[2019-01-05] MEDS: CEFTRIAXONE 1 GM/50 ML (PMX) 50 ML IVPB SCH (09:34)
[2019-01-05] MEDS: FLUOXETINE 20 MG CAP PO SCH (09:34)
[2019-01-05] MEDS: BUDESONIDE (NEB) 0.5MG/2ML AMP INH SCH ×2 (09:41→20:20)
[2019-01-05] MEDS: ARFORMOTEROL TARTRATE 15MCG/2 ML AMP INH SCH ×2 (09:41→20:20)
[2019-01-05] MEDS: SOD CHLORIDE 0.45% 1,000 ML IV SCH ×2 (11:56→18:39)
[2019-01-05] MEDS: SOD FERRIC GLUC COMPLX 125 MG in SOD CHLORIDE 0.9% 100 ML IVPB SCH (13:39)
--- NOTE | 2019-01-05 14:37 | CONS ---
DATE OF ADMISSION: 01/01/2019 DATE OF CONSULTATION: TYPE OF CONSULTATION: Pulmonary Thank you Dr. Adams, for the consultation. HISTORY OF PRESENT ILLNESS: This is a 68-year-old lady originally admitted on 01/01/2019 with increa sing cough, fever, and congestion. She has a history of COPD with extensive prior tobacco history, o n home O2 on a p.r.n. basis. Her BNP was within normal limits. On admission she did, however, have a right lower lobe infiltrate consistent with a community-acquire d pneumonia. The patient was treated with appropriate antibiotics but still has moderate hypoxemia a nd dyspnea despite steroids, antibiotics. Chest x-ray shows persistent right lower lobe infiltrate. PAST MEDICAL HISTORY: As above. MEDICATIONS: Per chart. ALLERGIES: EPINEPHRINE. SOCIAL HISTORY: She is a current nonsmoker. No previous extensive tobacco history. FAMILY HISTORY: Noncontributory. SYSTEMS REVIEW: A 12-point review of systems was negative other than that mentioned above. PHYSICAL EXAMINATION: GENERAL: Elderly-appearing lady, appears comfortable at rest, no acute distress. VITAL SIGNS: Currently afebrile, pulse is 100, blood pressure 133/67, O2 saturation 96% on 3L nasal cannula. NECK: Supple. No JVD or lymphadenopathy. SKIN: Consent was seen and sounds or murmur. CHEST: Diminished air entry bilaterally. ABDOMEN: Soft, nontender. No guarding or rebound. EXTREMITIES: No cyanosis, clubbing, 1+ edema. NEUROLOGIC: Generalized weakness. LABORATORY DATA: White count 13.4, hemoglobin 9.2, platelets of 329. BUN 12, creatinine 0.57. INR 1.17. DIAGNOSTIC DATA: Chest x-ray shows right lower lobe infiltrates. IMPRESSION AND PLAN: 1. Community-acquired pneumonia. 2. Persistent bronchospasm. 3. Underlying history of chronic obstructive pulmonary disease. 4. Persistent right lower lobe infiltrate concerning for atypical pneumonia or malignancy such as br onchoalveolar lung carcinoma versus bronchiolitis obliterans organizing pneumonia. I will obtain chest CT to further evaluate lung parenchyma. The patient may require bronchoscopy and biopsies if no significant improvement. Dictated By: GABI ELY MD SV/NTS Conf#: [id number] DID#: [id number] CC: ALMA ADAMS MD;*EndCC*
[2019-01-05 14:47] VITALS: BP 137/69; PULSE 97; RESP 20
[2019-01-05 19:19] VITALS: BP 165/85; PULSE 84; RESP 18
[2019-01-05] MEDS: ATORVASTATIN 10 MG TAB PO SCH (21:15)
[2019-01-05] MEDS: ONDANSETRON 4 MG INJ IV PRN (22:54)
[2019-01-05] MEDS: LORAZEPAM 2 MG INJ IV PRN (22:55)
[2019-01-06] MEDS: ALBUTEROL/IPRATROPIUM (NEB) 3 ML AMP HHN SCH ×6 (00:14→20:12)
[2019-01-06] MEDS: SOD CHLORIDE 0.45% 1,000 ML IV SCH ×2 (01:16→10:59)
[2019-01-06 01:49] VITALS: BP 141/75; PULSE 78; RESP 17
--- NOTE | 2019-01-06 06:37 | CONS ---
Assessment/Plan Assessment/Plan Hospital Course (Demo Recall) 1) RML pneumonia following a 4 day stay in a hospital for COPD and (altitude sickness?) sputum cx was just collected nasal swab for MRSA is pending blood cx are NGTD continue with zosyn and add doxycycline for atypical and MRSA coverage I agree with treating for more resistant bacteria due to her recent stay at a hospital because of wheezing pt was given steroids, currently there is no wheezing 01/03 - GNR in sputum cx neg MRSA screen, d/c doxycycline and conitnue with zosyn a.m. labs were not obtained, pt got stuck multiple times, told nurse ok to skip this day's labs will repeat tomorrow a.m. 01/04 - enterobacter in sputum cx pt feels a bit worse today, will change antibiotics to ceftriaxone/azithro for CAP, the enterobacter is sensitive to 3rd gen cephalosporins 01/05 - improved, steroids were increased when pt ready for d/c can change ceftriaxone to omnicef or vantin and continue with azithromycin 01/06 - increase in WBC more likely related to increase in steroids CT chest does not show significant R pleural effusion, just dense consolidation continue with ceftriaxone/azithro at present check procalcitonin in a.m. 2) moderate pyuria with GNR in urine (e.coli) pt has some mild L CVAT, so will get a renal u/s likely zosyn will treat await final ID and sensi's 01/03 - renal u/s was ok e.coli is fairly sensitive, continue with zosyn 01/04 - change zosyn to ceftriaxone 01/05 - pt is asymptomatic 3) COPD 4) HTN 5) hx of CHF Consultation Date/Type/Reason Admit Date/Time Jan 01, 2019 at 14:28 Initial Consult Date 01/02/19 Type of Consult ID Date/Time of Note DATE: 01/06/19 TIME: 06:33 24 HR Interval Summary Free Text/Dictation pt has pain to R flank, worse with coughing or movement no N, V has soft stools breathing was ok yesterday, is able to walk but feels weak Exam/Review of Systems Exam Vitals Vital Signs Date Temp Pulse Resp B/P (MAP) Pulse Ox O2 O2 Flow FiO2 Time Delivery Rate 01/06/19 2.0 05:19 01/06/19 70 20 97 Nasal 05:19 Cannula 01/06/19 98.5 141/75 01:49 (97) Intake and Output 01/05/19 01/05/19 01/06/19 1515:00 23:00 07:00 IntakeIntake Total 1360 ml 2000 ml 1300 ml BalanceBalance 1360 ml 2000 ml 1300 ml Constitutional: alert, oriented ENMT: mucosa pink and moist Respiratory: other (decreased BS at R base) Cardiovascular: regular rate and rhythm Gastrointestinal: soft, other (tender to mid-epigastric area to L flank) Results Result Diagram: 01/06/19 0440 01/05/19 0501 Results 24hrs Laboratory Tests Test 01/06/19 04:40 White Blood Count 16.2 #H Red Blood Count 3.20 L Hemoglobin 8.9 L Hematocrit 28.1 L Mean Corpuscular Volume 87.8 Mean Corpuscular Hemoglobin 27.8 L Mean Corpuscular Hemoglobin Concent 31.7 L Red Cell Distribution Width 13.2 Platelet Count 330 Mean Platelet Volume 9.4 Immature Granulocytes % 9.000 H Neutrophils % 81.3 H Lymphocytes % 6.9 L Monocytes % 2.6 Eosinophils % 0.1 Basophils % 0.1 Nucleated Red Blood Cells % 0.0 Immature Granulocytes # 1.450 H Neutrophils # 13.2 H Lymphocytes # 1.1 Monocytes # 0.4 Eosinophils # 0.0 Basophils # 0.0 Nucleated Red Blood Cells # 0.0 Medications Medication Current Medications IV Flush (NS 3 ml) 3 ml PER PROTOCOL IV ; Start 01/01/19 at 15:00 Ondansetron HCl (Zofran Inj) 4 mg Q6H PRN IV NAUSEA/VOMITING Last administered on 01/05/19at 22:54; Admin Dose 4 MG; Start 01/01/19 at 15:00 Acetaminophen (Tylenol Tab) 650 mg Q6H PRN PO .PAIN 1-3 OR TEMP Last administered on 01/04/19at 04:27; Admin Dose 650 MG; Start 01/01/19 at 15:00 Acetaminophen/ Hydrocodone Bitart ([place] (5/325)) 1 tab Q6H PRN PO .MOD PAIN 4- 6 Last administered on 01/02/19at 15:00; Admin Dose 1 TAB; Start 01/01/19 at 15:00 Morphine Sulfate (morphine) 2 mg Q4H PRN IV .SEVERE PAIN 7-10; Start 01/01/19 at 15:00 Docusate Sodium (Colace) 100 mg Q12H PRN PO .CONSTIPATION Last administered on 01/03/19 09:27; Admin Dose 100 MG; Start 01/01/19 at 15:00 Magnesium Hydroxide (Milk Of Mag) 30 ml DAILY PRN PO .CONSTIPATION Last administered on 01/03/19 09:27; Admin Dose 30 ML; Start 01/01/19 at 15:00 Heparin Sodium (Porcine) (Heparin (5000 Units/1ml)) 5,000 unit Q12 SC Last administered on 01/05/19 21:23; Admin Dose 5,000 UNIT; Start 01/01/19 at 21:00 Sodium Chloride 1,000 ml @ 75 mls/hr [id number] IV Last administered on 01/05/19 18:39; Admin Dose 75 MLS/HR; Start 01/01/19 at 14:36 Lorazepam (Ativan) 0.5 mg Q6H PRN IV ANXIETY Last administered on 01/05/19 22:55; Admin Dose 0.5 MG; Start 01/01/19 at 15:00 Albuterol/ Ipratropium (Duoneb) 3 ml Q4H RESP THERAPY HHN Last administered on 01/06/19 05:19; Admin Dose 3 ML; Start 01/01/19 at 17:00 Hydralazine HCl (Apresoline) 10 mg Q6H PRN IV ELEVATED BLOOD PRESSURE; Start 01/01/19 at 15:00 Nitroglycerin (Nitroglycerin (Sl Tab) 0.4 Mg) 1 tab Q5M PRN SL ANGINA; Start 01/01/19 at 15:00 Fluoxetine HCl (Prozac) 20 mg DAILY PO Last administered on 01/05/19 09:34; Admin Dose 20 MG; Start 01/02/19 at 09:00 Atorvastatin Calcium (Lipitor) 10 mg HS PO Last administered on 01/05/19 21:15; Admin Dose 10 MG; Start 01/01/19 at 21:00 Arformoterol Tartrate (Brovana (Neb)) 2 ml BID RESP THERAPY INH Last administered on 01/05/19 20:20; Admin Dose 2 ML; Start 01/01/19 at 20:00 Budesonide (Pulmicort (Neb)) 0.5 mg BID RESP THERAPY INH Last administered on 01/05/19 20:20; Admin Dose 0.5 MG; Start 01/01/19 at 20:00 Sodium Chloride ([place] Nasal Gel) 1 applic BID PRN NASAL NASAL DRYNESS Last administered on 01/02/19 12:55; Admin Dose 1 APPLIC; Start 01/01/19 at 23:00 Ferric Sodium Gluconate Complex 125 mg/Sodium Chloride 110 ml @ 110 mls/hr DAILY@1300 IVPB Last administered on 01/05/19 13:39; Admin Dose 110 MLS/HR; Start 01/02/19 at 13:00; Stop 01/06/19 at 13:59 Polyethylene Glycol (Miralax) 17 gm DAILY PRN PO constipation; Start 01/03/19 a t 10:00 Ceftriaxone Sodium 50 ml @ 100 mls/hr Q24H IVPB Last administered on 01/05/19 09:34; Admin Dose 100 MLS/HR; Start 01/04/19 at 09:00 Azithromycin (Zithromax) 250 mg DAILY PO Last administered on 01/05/19 09:33; Admin Dose 250 MG; Start 01/05/19 at 09:00 Methylprednisolone Sodium Succinate (Solu-Medrol) 40 mg Q12 IV Last administered on 01/05/19 21:15; Admin Dose 40 MG; Start 01/04/19 at 09:00 CLARENCE TOBAR MD Jan 06, 2019 06:37
[2019-01-06 07:54] VITALS: BP 137/82; PULSE 82; RESP 20
[2019-01-06] MEDS: ARFORMOTEROL TARTRATE 15MCG/2 ML AMP INH SCH ×2 (08:08→20:00)
[2019-01-06] MEDS: BUDESONIDE (NEB) 0.5MG/2ML AMP INH SCH ×2 (08:08→20:12)
[2019-01-06] MEDS: FLUOXETINE 20 MG CAP PO SCH (09:52)
[2019-01-06] MEDS: CEFTRIAXONE 1 GM/50 ML (PMX) 50 ML IVPB SCH (09:52)
[2019-01-06] MEDS: AZITHROMYCIN 250 MG TAB PO SCH (09:52)
[2019-01-06] MEDS: METHYLPREDNISOLONE 40 MG INJ IV SCH ×2 (09:52→20:35)
[2019-01-06] MEDS: HEPARIN 5,000 UNIT/1 ML VIAL SC SCH ×2 (10:01→20:45)
[2019-01-06] MEDS: ACETAMINOPHEN 325 MG TAB PO PRN (10:04)
--- NOTE | 2019-01-06 10:37 | CONS ---
Assessment/Plan Assessment/Plan Assessment/Plan (Daily) Assessment and recommendations; 1. Patient admitted with right lower lobe community acquired pneumonia 2. underlying COPD. Discontinue Rocephin, start Levaquin 750 mg IV daily with addition of Zosyn 3.375 g every 8 hours. Obtain follow-up chest x-ray in 48 hours. Consultation Date/Type/Reason Admit Date/Time Jan 01, 2019 at 14:28 Initial Consult Date 01/02/19 Type of Consult Pulmonary Patient condition is stable. Complains of very scant cough. Denies any chest pain, fever, chills, any sputum production or hemoptysis. General exam; elderly lady, laying comfortably in bed. Currently no distress. Reason for Consultation H ENT exam; supple neck, no JVD. No lymphadenopathy. Midline trachea. No thyromegaly. Pharynx is clear. Chest exam; diminished breath sounds bilaterally with right lower lobe crackles. S1-S2 audible, no murmurs. Regular exam. Abdomen exam; soft, mildly protuberant. Nontender. Bowel sounds audible. Extremity exam; no peripheral edema. [employer] exam; no focal deficit. Date/Time of Note DATE: 01/06/19 TIME: 10:36 Exam/Review of Systems Exam Vitals Vital Signs Date Temp Pulse Resp B/P (MAP) Pulse Ox O2 O2 Flow FiO2 Time Delivery Rate 01/06/19 2.0 08:08 01/06/19 83 18 95 Nasal 08:08 Cannula 01/06/19 98.8 137/82 07:54 (100) Intake and Output 01/05/19 01/05/19 01/06/19 1515:00 23:00 07:00 IntakeIntake Total 1360 ml 2000 ml 1300 ml BalanceBalance 1360 ml 2000 ml 1300 ml Results Result Diagram: 01/06/19 0440 01/06/19 0440 Results 24hrs Laboratory Tests Test 01/06/19 04:40 White Blood Count 16.2 #H Red Blood Count 3.20 L Hemoglobin 8.9 L Hematocrit 28.1 L Mean Corpuscular Volume 87.8 Mean Corpuscular Hemoglobin 27.8 L Mean Corpuscular Hemoglobin Concent 31.7 L Red Cell Distribution Width 13.2 Platelet Count 330 Mean Platelet Volume 9.4 Immature Granulocytes % 9.000 H Neutrophils % 81.3 H Lymphocytes % 6.9 L Monocytes % 2.6 Eosinophils % 0.1 Basophils % 0.1 Nucleated Red Blood Cells % 0.0 Immature Granulocytes # 1.450 H Neutrophils # 13.2 H Lymphocytes # 1.1 Monocytes # 0.4 Eosinophils # 0.0 Basophils # 0.0 Nucleated Red Blood Cells # 0.0 Sodium Level 134 L Potassium Level 4.5 Chloride Level 100 Carbon Dioxide Level 27 Anion Gap 7 Blood Urea Nitrogen 14 Creatinine 0.58 Est Glomerular Filtrat Rate mL/min > 60 Glucose Level 139 Calcium Level 8.6 Medications Medication Current Medications IV Flush (NS 3 ml) 3 ml PER PROTOCOL IV ; Start 01/01/19 at 15:00 Ondansetron HCl (Zofran Inj) 4 mg Q6H PRN IV NAUSEA/VOMITING Last administered on 01/05/19 22:54; Admin Dose 4 MG; Start 01/01/19 at 15:00 Acetaminophen (Tylenol Tab) 650 mg Q6H PRN PO .PAIN 1-3 OR TEMP Last ad ministered on 01/06/19 10:04; Admin Dose 650 MG; Start 01/01/19 at 15:00 Acetaminophen/ Hydrocodone Bitart ([place] (5/325)) 1 tab Q6H PRN PO .MOD PAIN 4- 6 Last administered on 01/02/19 15:00; Admin Dose 1 TAB; Start 01/01/19 at 15:00 Morphine Sulfate (morphine) 2 mg Q4H PRN IV .SEVERE PAIN 7-10; Start 01/01/19 at 15:00 Docusate Sodium (Colace) 100 mg Q12H PRN PO .CONSTIPATION Last administered on 01/03/19 09:27; Admin Dose 100 MG; Start 01/01/19 at 15:00 Magnesium Hydroxide (Milk Of Mag) 30 ml DAILY PRN PO .CONSTIPATION Last administered on 01/03/19 09:27; Admin Dose 30 ML; Start 01/01/19 at 15:00 Heparin Sodium (Porcine) (Heparin (5000 Units/1ml)) 5,000 unit Q12 SC Last administered on 01/06/19 10:01; Admin Dose 5,000 UNIT; Start 01/01/19 at 21:00 Sodium Chloride 1,000 ml @ 75 mls/hr [id number] IV Last administered on 4/29/19at 18:39; Admin Dose 75 MLS/HR; Start 01/01/19 at 14:36 Lorazepam (Ativan) 0.5 mg Q6H PRN IV ANXIETY Last administered on 01/05/19 22:55; Admin Dose 0.5 MG; Start 01/01/19 at 15:00 Albuterol/ Ipratropium (Duoneb) 3 ml Q4H RESP THERAPY HHN Last administered on 01/06/19 08:08; Admin Dose 3 ML; Start 01/01/19 at 17:00 Hydralazine HCl (Apresoline) 10 mg Q6H PRN IV ELEVATED BLOOD PRESSURE; Start 01/01/19 at 15:00 Nitroglycerin (Nitroglycerin (Sl Tab) 0.4 Mg) 1 tab Q5M PRN SL ANGINA; Start 01/01/19 at 15:00 Fluoxetine HCl (Prozac) 20 mg DAILY PO Last administered on 01/06/19 09:52; Admin Dose 20 MG; Start 01/02/19 at 09:00 Atorvastatin Calcium (Lipitor) 10 mg HS PO Last administered on 01/05/19 21:15; Admin Dose 10 MG; Start 01/01/19 at 21:00 Arformoterol Tartrate (Brovana (Neb)) 2 ml BID RESP THERAPY INH Last administered on 01/06/19 08:08; Admin Dose 2 ML; Start 01/01/19 at 20:00 Budesonide (Pulmicort (Neb)) 0.5 mg BID RESP THERAPY INH Last administered on 01/06/19 08:08; Admin Dose 0.5 MG; Start 01/01/19 at 20:00 Sodium Chloride ([place] Nasal Gel) 1 applic BID PRN NASAL NASAL DRYNESS Last administered on 01/02/19 12:55; Admin Dose 1 APPLIC; Start 01/01/19 at 23:00 Ferric Sodium Gluconate Complex 125 mg/Sodium Chloride 110 ml @ 110 mls/hr DAILY@1300 IVPB Last administered on 01/05/19 13:39; Admin Dose 110 MLS/HR; Start 01/02/19 at 13:00; Stop 01/06/19 at 13:59 Polyethylene Glycol (Miralax) 17 gm DAILY PRN PO constipation; Start 01/03/19 at 10:00 Ceftriaxone Sodium 50 ml @ 100 mls/hr Q24H IVPB Last administered on 01/06/19at 09:52; Admin Dose 100 MLS/HR; Start 01/04/19 at 09:00 Azithromycin (Zithromax) 250 mg DAILY PO Last administered on 01/06/19at 09:52; Admin Dose 250 MG; Start 01/05/19 at 09:00 Methylprednisolone Sodium Succinate (Solu-Medrol) 40 mg Q12 IV Last administered on 01/06/19at 09:52; Admin Dose 40 MG; Start 01/04/19 at 09:00 KENDALL ARECHIGA Jan 06, 2019 10:37
[2019-01-06] MEDS: LEVOFLOXACIN 750MG/D5W (PMX) 150 ML IVPB SCH (12:11)
[2019-01-06] MEDS: SOD FERRIC GLUC COMPLX 125 MG in SOD CHLORIDE 0.9% 100 ML IVPB SCH (13:58)
[2019-01-06 14:23] VITALS: BP 167/93; PULSE 95; RESP 20
[2019-01-06] MEDS: HYDROCODONE/APAP (5/325) TAB PO PRN ×2 (14:38→23:09)
[2019-01-06] MEDS: PIPER-TAZO 3.375 GM IV (PMX) 100 ML IVPB SCH ×2 (15:31→21:51)
--- NOTE | 2019-01-06 19:20 | PN ---
Date/Time of Note Date/Time of Note DATE: 01/06/19 TIME: 19:07 Assessment/Plan VTE Prophylaxis Risk score (from Ns)>0 risk: 7 SCD applied (from [facility] [place] Yes Pharmacological prophylaxis: heparin Lines/Catheters IV Catheter Type (from [facility]): Peripheral IV Assessment/Plan Hospital Course 1. Right lower lobe pneumonia, now on antibiotics. She has been seen by infectious disease specialist Dr. wan. She is overall better. She is less short of breath less cough. 2. Urinary tract infection 3. COPD, emphysema, with acute exacerbation. She is improved and less short of breath now . 4. Anemia, iron deficiency. I will start her on IV Ferrlecit . Her stool is negative for occult blood. 5. Right upper quadrant abdominal pain. She says that she has had a cholecystectomy in the past. She had an ultrasound of the kidneys which was unremarkable. Result Diagram: 01/06/19 0440 01/06/19 0440 Results 24hrs Laboratory Tests Test 01/06/19 04:40 White Blood Count 16.2 #H Red Blood Count 3.20 L Hemoglobin 8.9 L Hematocrit 28.1 L Mean Corpuscular Volume 87.8 Mean Corpuscular Hemoglobin 27.8 L Mean Corpuscular Hemoglobin Concent 31.7 L Red Cell Distribution Width 13.2 Platelet Count 330 Mean Platelet Volume 9.4 Immature Granulocytes % 9.000 H Neutrophils % 81.3 H Lymphocytes % 6.9 L Monocytes % 2.6 Eosinophils % 0.1 Basophils % 0.1 Nucleated Red Blood Cells % 0.0 Immature Granulocytes # 1.450 H Neutrophils # 13.2 H Lymphocytes # 1.1 Monocytes # 0.4 Eosinophils # 0.0 Basophils # 0.0 Nucleated Red Blood Cells # 0.0 Sodium Level 134 L Potassium Level 4.5 Chloride Level 100 Carbon Dioxide Level 27 Anion Gap 7 Blood Urea Nitrogen 14 Creatinine 0.58 Est Glomerular Filtrat Rate mL/min > 60 Glucose Level 139 Calcium Level 8.6 Subjective 24 Hr Interval Summary Free Text/Dictation Priscilla is awake and alert. She is feeling better. She is coughing less and breathing better. She did have some left lower chest pain earlier but that is being relieved with a K pad. Constitutional: improved Respiratory: cough, pleuritic pain Cardiovascular: no complaints Genitourinary: no complaints Skin: no complaints Exam/Review of Systems Exam Vitals Vital Signs Date Temp Pulse Resp B/P (MAP) Pulse Ox O2 O2 Flow FiO2 Time Delivery Rate 01/06/19 98.0 95 20 167/93 97 14:23 (117) 01/06/19 Nasal 2.0 12:34 Cannula Intake and Output 01/05/19 01/05/19 01/06/19 1515:00 23:00 07:00 IntakeIntake Total 1360 ml 2000 ml 1300 ml BalanceBalance 1360 ml 2000 ml 1300 ml Constitutional: alert, oriented Respiratory: congested cough, diminished breath sounds Cardiovascular: regular rate and rhythm Gastrointestinal: soft, non-tender Musculoskeletal: nl extremities to inspection Results Results 24hrs Laboratory Tests Test 01/06/19 04:40 White Blood Count 16.2 #H Red Blood Count 3.20 L Hemoglobin 8.9 L Hematocrit 28.1 L Mean Corpuscular Volume 87.8 Mean Corpuscular Hemoglobin 27.8 L Mean Corpuscular Hemoglobin Concent 31.7 L Red Cell Distribution Width 13.2 Platelet Count 330 Mean Platelet Volume 9.4 Immature Granulocytes % 9.000 H Neutrophils % 81.3 H Lymphocytes % 6.9 L Monocytes % 2.6 Eosinophils % 0.1 Basophils % 0.1 Nucleated Red Blood Cells % 0.0 Immature Granulocytes # 1.450 H Neutrophils # 13.2 H Lymphocytes # 1.1 Monocytes # 0.4 Eosinophils # 0.0 Basophils # 0.0 Nucleated Red Blood Cells # 0.0 Sodium Level 134 L Potassium Level 4.5 Chloride Level 100 Carbon Dioxide Level 27 Anion Gap 7 Blood Urea Nitrogen 14 Creatinine 0.58 Est Glomerular Filtrat Rate mL/min > 60 Glucose Level 139 Calcium Level 8.6 Medications Medication Current Medications IV Flush (NS 3 ml) 3 ml PER PROTOCOL IV ; Start 01/01/19 at 15:00 Ondansetron HCl (Zofran Inj) 4 mg Q6H PRN IV NAUSEA/VOMITING Last administered on 01/05/19at 22:54; Admin Dose 4 MG; Start 01/01/19 at 15:00 Acetaminophen (Tylenol Tab) 650 mg Q6H PRN PO .PAIN 1-3 OR TEMP Last administered on 01/06/19at 10:04; Admin Dose 650 MG; Start 01/01/19 at 15:00 Acetaminophen/ Hydrocodone Bitart ([place] (5/325)) 1 tab Q6H PRN PO .MOD PAIN 4- 6 Last administered on 01/06/19 14:38; Admin Dose 1 TAB; Start 01/01/19 at 15:00 Morphine Sulfate (morphine) 2 mg Q4H PRN IV .SEVERE PAIN 7-10; Start 01/01/19 at 15:00 Docusate Sodium (Colace) 100 mg Q12H PRN PO .CONSTIPATION Last administered on 01/03/19 09:27; Admin Dose 100 MG; Start 01/01/19 at 15:00 Magnesium Hydroxide (Milk Of Mag) 30 ml DAILY PRN PO .CONSTIPATION Last administered on 01/03/19 09:27; Admin Dose 30 ML; Start 01/01/19 at 15:00 Heparin Sodium (Porcine) (Heparin (5000 Units/1ml)) 5,000 unit Q12 SC Last administered on 01/06/19 10:01; Admin Dose 5,000 UNIT; Start 01/01/19 at 21:00 Sodium Chloride 1,000 ml @ 75 mls/hr [id number] IV Last administered on 01/06/19 10:59; Admin Dose 75 MLS/HR; Start 01/01/19 at 14:36 Lorazepam (Ativan) 0.5 mg Q6H PRN IV ANXIETY Last administered on 01/05/19 22:55; Admin Dose 0.5 MG; Start 01/01/19 at 15:00 Albuterol/ Ipratropium (Duoneb) 3 ml Q4H RESP THERAPY HHN Last administered on 01/06/19 12:33; Admin Dose 3 ML; Start 01/01/19 at 17:00 Hydralazine HCl (Apresoline) 10 mg Q6H PRN IV ELEVATED BLOOD PRESSURE; Start 01/01/19 at 15:00 Nitroglycerin (Nitroglycerin (Sl Tab) 0.4 Mg) 1 tab Q5M PRN SL ANGINA; Start 01/01/19 at 15:00 Fluoxetine HCl (Prozac) 20 mg DAILY PO Last administered on 01/06/19 09:52; Admin Dose 20 MG; Start 01/02/19 at 09:00 Atorvastatin Calcium (Lipitor) 10 mg HS PO Last administered on 01/05/19 21:15; Admin Dose 10 MG; Start 01/01/19 at 21:00 Arformoterol Tartrate (Brovana (Neb)) 2 ml BID RESP THERAPY INH Last administered on 01/06/19 08:08; Admin Dose 2 ML; Start 01/01/19 at 20:00 Budesonide (Pulmicort (Neb)) 0.5 mg BID RESP THERAPY INH Last administered on 01/06/19 08:08; Admin Dose 0.5 MG; Start 01/01/19 at 20:00 Sodium Chloride ([place] Nasal Gel) 1 applic BID PRN NASAL NASAL DRYNESS Last administered on 01/02/19 12:55; Admin Dose 1 APPLIC; Start 01/01/19 at 23:00 Polyethylene Glycol (Miralax) 17 gm DAILY PRN PO constipation; Start 01/03/19 at 10:00 Azithromycin (Zithromax) 250 mg DAILY PO Last administered on 01/06/19 09:52; Admin Dose 250 MG; Start 01/05/19 at 09:00 Methylprednisolone Sodium Succinate (Solu-Medrol) 40 mg Q12 IV Last administered on 01/06/19 09:52; Admin Dose 40 MG; Start 01/04/19 at 09:00 Levofloxacin/ Dextrose 150 ml @ 100 mls/hr Q24H IVPB Last administered on 01/06/19 12:11; Admin Dose 100 MLS/HR; Start 01/06/19 at 11:00 Piperacillin Sod/ Tazobactam Sod 100 ml @ 200 mls/hr Q8 IVPB Last administered on 01/06/19 15:31; Admin Dose 200 MLS/HR; Start 01/06/19 at 14:00 ALMA ADAMS MD Jan 06, 2019 19:17
[2019-01-06] MEDS: ATORVASTATIN 10 MG TAB PO SCH (20:35)
[2019-01-06 20:52] VITALS: BP 161/83; PULSE 88; RESP 18
[2019-01-07] MEDS: LORAZEPAM 2 MG INJ IV PRN (00:49)
[2019-01-07] MEDS: ALBUTEROL/IPRATROPIUM (NEB) 3 ML AMP HHN SCH ×6 (01:23→21:03)
[2019-01-07 02:16] VITALS: BP 155/73; PULSE 91; RESP 18
[2019-01-07] MEDS: SOD CHLORIDE 0.45% 1,000 ML IV SCH ×3 (04:37→20:44)
[2019-01-07] MEDS: PIPER-TAZO 3.375 GM IV (PMX) 100 ML IVPB SCH ×3 (05:44→22:32)
[2019-01-07 07:56] VITALS: BP 143/70; PULSE 86; RESP 17
--- NOTE | 2019-01-07 07:58 | CONS ---
Assessment/Plan Assessment/Plan Hospital Course (Demo Recall) 1) RML pneumonia following a 4 day stay in a hospital for COPD and (altitude sickness?) sputum cx was just collected nasal swab for MRSA is pending blood cx are NGTD continue with zosyn and add doxycycline for atypical and MRSA coverage I agree with treating for more resistant bacteria due to her recent stay at a hospital because of wheezing pt was given steroids, currently there is no wheezing 01/03 - GNR in sputum cx neg MRSA screen, d/c doxycycline and conitnue with zosyn a.m. labs were not obtained, pt got stuck multiple times, told nurse ok to skip this day's labs will repeat tomorrow a.m. 01/04 - enterobacter in sputum cx pt feels a bit worse today, will change antibiotics to ceftriaxone/azithro for CAP, the enterobacter is sensitive to 3rd gen cephalosporins 01/05 - improved, steroids were increased when pt ready for d/c can change ceftriaxone to omnicef or vantin and continue with azithromycin 01/06 - increase in WBC more likely related to increase in steroids CT chest does not show significant R pleural effusion, just dense consolidation continue with ceftriaxone/azithro at present check procalcitonin in a.m. 01/07 - pulmonology changed antibiotics to zosyn/levo pt continutes to improve elevated WBC more likely due to steroids I will sign off on case, thank you 2) moderate pyuria with GNR in urine (e.coli) pt has some mild L CVAT, so will get a renal u/s likely zosyn will treat await final ID and sensi's 01/03 - renal u/s was ok e.coli is fairly sensitive, continue with zosyn 01/04 - change zosyn to ceftriaxone 01/05 - pt is asymptomatic 3) COPD 4) HTN 5) hx of CHF Consultation Date/Type/Reason Admit Date/Time Jan 01, 2019 at 14:28 Initial Consult Date 01/02/19 Type of Consult ID Date/Time of Note DATE: 01/07/19 TIME: 07:55 24 HR Interval Summary Free Text/Dictation SOB and cough continue to get better still has L flank pain with coughing no N, V appetite not so good, stools are soft Exam/Review of Systems Exam Vitals Vital Signs Date Temp Pulse Resp B/P (MAP) Pulse Ox O2 O2 Flow FiO2 Time Delivery Rate 01/07/19 88 24 96 Nasal 2.0 05:06 Cannula 01/07/19 98.7 155/73 02:16 (100) Intake and Output 01/06/19 01/06/19 01/07/19 1515:00 23:00 07:00 IntakeIntake Total 1630 ml 1130 ml 800 ml BalanceBalance 1630 ml 1130 ml 800 ml Constitutional: alert, oriented ENMT: mucosa pink and moist Respiratory: other (decreased BS at R base) Cardiovascular: regular rate and rhythm Gastrointestinal: soft Results Result Diagram: 01/07/19 0430 01/07/19 0430 Results 24hrs Laboratory Tests Test 01/07/19 04:30 White Blood Count 19.3 H Red Blood Count 3.26 L Hemoglobin 9.0 L Hematocrit 28.2 L Mean Corpuscular Volume 86.5 Mean Corpuscular Hemoglobin 27.6 L Mean Corpuscular Hemoglobin Concent 31.9 L Red Cell Distribution Width 13.3 Platelet Count 368 Mean Platelet Volume 9.1 Immature Granulocytes % 8.800 H Neutrophils % Lymphocytes % Monocytes % Eosinophils % Basophils % Nucleated Red Blood Cells % 0.0 Immature Granulocytes # 1.710 H Neutrophils # Lymphocytes # Monocytes # Eosinophils # Basophils # Nucleated Red Blood Cells # Sodium Level Pending Potassium Level 4.6 Chloride Level 99 Carbon Dioxide Level 30 Anion Gap Pending Blood Urea Nitrogen 13 Creatinine 0.63 Est Glomerular Filtrat Rate mL/min > 60 Glucose Level 142 Calcium Level 8.8 Medications Medication Current Medications IV Flush (NS 3 ml) 3 ml PER PROTOCOL IV ; Start 01/01/19 at 15:00 Ondansetron HCl (Zofran Inj) 4 mg Q6H PRN IV NAUSEA/VOMITING Last administered on 01/05/19at 22:54; Admin Dose 4 MG; Start 01/01/19 at 15:00 Acetaminophen (Tylenol Tab) 650 mg Q6H PRN PO .PAIN 1-3 OR TEMP Last administered on 01/06/19at 10:04; Admin Dose 650 MG; Start 01/01/19 at 15:00 Acetaminophen/ Hydrocodone Bitart ([place] (5/325)) 1 tab Q6H PRN PO .MOD PAIN 4-6 Last administered on 01/06/19at 23:09; Admin Dose 1 TAB; Start 01/01/19 at 15:00 Morphine Sulfate (morphine) 2 mg Q4H PRN IV .SEVERE PAIN 7-10; Start 01/01/19 at 15:00 Docusate Sodium (Colace) 100 mg Q12H PRN PO .CONSTIPATION Last administered on 01/03/19 09:27; Admin Dose 100 MG; Start 01/01/19 at 15:00 Magnesium Hydroxide (Milk Of Mag) 30 ml DAILY PRN PO .CONSTIPATION Last administered on 01/03/19 09:27; Admin Dose 30 ML; Start 01/01/19 at 15:00 Heparin Sodium (Porcine) (Heparin (5000 Units/1ml)) 5,000 unit Q12 SC Last administered on 01/06/19 20:45; Admin Dose 5,000 UNIT; Start 01/01/19 at 21:00 Sodium Chloride 1,000 ml @ 75 mls/hr [id number] IV Last administered on 01/07/19 04:37; Admin Dose 75 MLS/HR; Start 01/01/19 at 14:36 Lorazepam (Ativan) 0.5 mg Q6H PRN IV ANXIETY Last administered on 01/07/19 00:49; Admin Dose 0.5 MG; Start 01/01/19 at 15:00 Albuterol/ Ipratropium (Duoneb) 3 ml Q4H RESP THERAPY HHN Last administered on 01/07/19 05:06; Admin Dose 3 ML; Start 01/01/19 at 17:00 Hydralazine HCl (Apresoline) 10 mg Q6H PRN IV ELEVATED BLOOD PRESSURE; Start 01/01/19 at 15:00 Nitroglycerin (Nitroglycerin (Sl Tab) 0.4 Mg) 1 tab Q5M PRN SL ANGINA; Start 01/01/19 at 15:00 Fluoxetine HCl (Prozac) 20 mg DAILY PO Last administered on 01/06/19 09:52; Admin Dose 20 MG; Start 01/02/19 at 09:00 Atorvastatin Calcium (Lipitor) 10 mg HS PO Last administered on 01/06/19 20 :35; Admin Dose 10 MG; Start 01/01/19 at 21:00 Arformoterol Tartrate (Brovana (Neb)) 2 ml BID RESP THERAPY INH Last administered on 4/30/19at 08:08; Admin Dose 2 ML; Start 01/01/19 at 20:00 Budesonide (Pulmicort (Neb)) 0.5 mg BID RESP THERAPY INH Last administered on 01/06/19 20:12; Admin Dose 0.5 MG; Start 01/01/19 at 20:00 Sodium Chloride ([place] Nasal Gel) 1 applic BID PRN NASAL NASAL DRYNESS Last administered on 01/02/19 12:55; Admin Dose 1 APPLIC; Start 01/01/19 at 23:00 Polyethylene Glycol (Miralax) 17 gm DAILY PRN PO constipation; Start 01/03/19 at 10:00 Methylprednisolone Sodium Succinate (Solu-Medrol) 40 mg Q12 IV Last administered on 01/06/19 20:35; Admin Dose 40 MG; Start 01/04/19 at 09:00 Levofloxacin/ Dextrose 150 ml @ 100 mls/hr Q24H IVPB Last administered on 01/06/19 12:11; Admin Dose 100 MLS/HR; Start 01/06/19 at 11:00 Piperacillin Sod/ Tazobactam Sod 100 ml @ 200 mls/hr Q8 IVPB Last administered on 01/07/19 05:44; Admin Dose 200 MLS/HR; Start 01/06/19 at 14:00 CLARENCE TOBAR MD January 07, 2019 07:58
[2019-01-07] MEDS: FLUOXETINE 20 MG CAP PO SCH (09:46)
[2019-01-07] MEDS: ARFORMOTEROL TARTRATE 15MCG/2 ML AMP INH SCH ×2 (09:46→21:10)
[2019-01-07] MEDS: HEPARIN 5,000 UNIT/1 ML VIAL SC SCH ×2 (09:47→20:42)
[2019-01-07] MEDS: METHYLPREDNISOLONE 40 MG INJ IV SCH ×2 (09:48→20:37)
[2019-01-07] MEDS: BUDESONIDE (NEB) 0.5MG/2ML AMP INH SCH ×2 (09:59→21:04)
--- NOTE | 2019-01-07 10:37 | CONS ---
Assessment/Plan Assessment/Plan Assessment/Plan (Daily) Assessment and recommendations; 1. patient admitted with severe right lower lobe community-acquired pneumonia 2. Underlying COPD. 3. Persistent leukocytosis. 4. Mild anemia. Continue current supportive care. Obtain follow-up chest x-ray 24 hours. Add Robitussin cough syrup every 4 hours as needed. Consultation Date/Type/Reason Admit Date/Time Jan 01, 2019 at 14:28 Initial Consult Date 01/02/19 Type of Consult Pulmonary Patient condition is stable. Complains of very scant cough. Denies any chest pain, fever, chills, any sputum production or hemoptysis. General exam; elderly lady, laying comfortably in bed. Currently no distress. Date/Time of Note DATE: 01/07/19 TIME: 10:34 24 HR Interval Summary Free Text/Dictation Patient's condition is fairly stable. Complains of cough causing occasional rib pain. Denies any sputum production any wheezing any fever or chills. General exam; elderly lady, laying comfortably in bed. Awake and alert. Currently in no distress. Exam/Review of Systems Exam Vitals Vital Signs Date Temp Pulse Resp B/P (MAP) Pulse Ox O2 O2 Flow FiO2 Time Delivery Rate 01/07/19 98.1 86 17 143/70 97 07:56 (94) 01/07/19 Nasal 2.0 05:06 Cannula Intake and Output 01/06/19 01/06/19 01/07/19 1515:00 23:00 07:00 IntakeIntake Total 1630 ml 1130 ml 800 ml BalanceBalance 1630 ml 1130 ml 800 ml Exam HE ENT exam; supple neck, no JVD. No lymphadenopathy. Midline trachea. No thyromegaly. Patient has fair dentition. No neck masses. Chest exam; diminished breath sounds bilaterally. No added sounds. S1-S2 audible, no murmurs. Regular rhythm. Abdomen exam; soft, nontender. No organomegaly. Bowel sounds audible. Extremity exam; no peripheral edema or clubbing. [employer] exam; no focal deficit. Results Result Diagram: 01/07/19 0430 01/07/19 0430 Results 24hrs Laboratory Tests Test 01/07/19 04:30 White Blood Count 19.3 H Red Blood Count 3.26 L Hemoglobin 9.0 L Hematocrit 28.2 L Mean Corpuscular Volume 86.5 Mean Corpuscular Hemoglobin 27.6 L Mean Corpuscular Hemoglobin Concent 31.9 L Red Cell Distribution Width 13.3 Platelet Count 368 Mean Platelet Volume 9.1 Immature Granulocytes % 8.800 H Neutrophils % Segmented Neutrophils % (Manual) 90 H Band Neutrophils % (Manual) 2 Lymphocytes % Lymphocytes % (Manual) 6 L Monocytes % Eosinophils % Basophils % Myelocytes % (Manual) 2 H Nucleated Red Blood Cells % 0.0 Immature Granulocytes # 1.710 H Neutrophils # Neutrophils # (Manual) 17.4 H Band Neutrophils # 0.3 Lymphocytes (Manual) 1.1 Lymphocytes # Monocytes # Eosinophils # Basophils # Myelocytes # 0.3 H Nucleated Red Blood Cells # Platelet Estimate NORMAL Polychromasia 2+ Hypochromasia 1+ Poikilocytosis 1+ Sodium Level 133 L Potassium Level 4.6 Chloride Level 99 Carbon Dioxide Level 30 Anion Gap 4 L Blood Urea Nitrogen 13 Creatinine 0.63 Est Glomerular Filtrat Rate mL/min > 60 Glucose Level 142 Calcium Level 8.8 Procalcitonin 0.04 Medications Medication Current Medications IV Flush (NS 3 ml) 3 ml PER PROTOCOL IV ; Start 01/01/19 at 15:00 Ondansetron HCl (Zofran Inj) 4 mg Q6H PRN IV NAUSEA/VOMITING Last administered on 01/05/19at 22:54; Admin Dose 4 MG; Start 01/01/19 at 15:00 Acetaminophen (Tylenol Tab) 650 mg Q6H PRN PO .PAIN 1-3 OR TEMP Last administered on 01/06/19at 10:04; Admin Dose 650 MG; Start 01/01/19 at 15:00 Acetaminophen/ Hydrocodone Bitart ([place] (5/325)) 1 tab Q6H PRN PO .MOD PAIN 4- 6 Last administered on 01/06/19at 23:09; Admin Dose 1 TAB; Start 01/01/19 at 15:00 Morphine Sulfate (morphine) 2 mg Q4H PRN IV .SEVERE PAIN 7-10; Start 01/01/19 at 15:00 Docusate Sodium (Colace) 100 mg Q12H PRN PO .CONSTIPATION Last administered on 01/03/19at 09:27; Admin Dose 100 MG; Start 01/01/19 at 15:00 Magnesium Hydroxide (Milk Of Mag) 30 ml DAILY PRN PO .CONSTIPATION Last admi nistered on 01/03/19 09:27; Admin Dose 30 ML; Start 01/01/19 at 15:00 Heparin Sodium (Porcine) (Heparin (5000 Units/1ml)) 5,000 unit Q12 SC Last administered on 01/07/19 09:47; Admin Dose 5,000 UNIT; Start 01/01/19 at 21:00 Sodium Chloride 1,000 ml @ 75 mls/hr [id number] IV Last administered on 01/07/19 04:37; Admin Dose 75 MLS/HR; Start 01/01/19 at 14:36 Lorazepam (Ativan) 0.5 mg Q6H PRN IV ANXIETY Last administered on 01/07/19 00:49; Admin Dose 0.5 MG; Start 01/01/19 at 15:00 Albuterol/ Ipratropium (Duoneb) 3 ml Q4H RESP THERAPY HHN Last administered on 01/07/19 09:35; Admin Dose 3 ML; Start 01/01/19 at 17:00 Hydralazine HCl (Apresoline) 10 mg Q6H PRN IV ELEVATED BLOOD PRESSURE Last administered on 01/07/19 10:19; Admin Dose 10 MG; Start 01/01/19 at 15:00 Nitroglycerin (Nitroglycerin (Sl Tab) 0.4 Mg) 1 tab Q5M PRN SL ANGINA; Start 01/01/19 at 15:00 Fluoxetine HCl (Prozac) 20 mg DAILY PO Last administered on 01/07/19 09:46; Admin Dose 20 MG; Start 01/02/19 at 09:00 Atorvastatin Calcium (Lipitor) 10 mg HS PO Last administered on 01/06/19 20:35; Admin Dose 10 MG; Start 01/01/19 at 21:00 Arformoterol Tartrate (Brovana (Neb)) 2 ml BID RESP THERAPY INH Last administered on 01/07/19 09:46; Admin Dose 2 ML; Start 01/01/19 at 20:00 Budesonide (Pulmicort (Neb)) 0.5 mg BID RESP THERAPY INH Last administered on 01/07/19 09:59; Admin Dose 0.5 MG; Start 01/01/19 at 20:00 Sodium Chloride ([place] Nasal Gel) 1 applic BID PRN NASAL NASAL DRYNESS Last administered on 01/02/19at 12:55; Admin Dose 1 APPLIC; Start 01/01/19 at 23:00 Polyethylene Glycol (Miralax) 17 gm DAILY PRN PO constipation; Start 01/03/19 at 10:00 Methylprednisolone Sodium Succinate (Solu-Medrol) 40 mg Q12 IV Last administered on 01/07/19at 09:48; Admin Dose 40 MG; Start 01/04/19 at 09:00 Levofloxacin/ Dextrose 150 ml @ 100 mls/hr Q24H IVPB Last administered on 01/06/19at 12:11; Admin Dose 100 MLS/HR; Start 01/06/19 at 11:00 Piperacillin Sod/ Tazobactam Sod 100 ml @ 200 mls/hr Q8 IVPB Last administered on 01/07/19at 05:44; Admin Dose 200 MLS/HR; Start 01/06/19 at 14:00 KENDALL ARECHIGA January 07, 2019 10:37
[2019-01-07] MEDS: HYDROCODONE/APAP (5/325) TAB PO PRN ×2 (10:50→20:35)
[2019-01-07] MEDS: LEVOFLOXACIN 750MG/D5W (PMX) 150 ML IVPB SCH (11:57)
[2019-01-07 14:01] VITALS: BP 168/86; PULSE 93; RESP 18
[2019-01-07] MEDS ORDERED: LISINOPRIL 20 MG TAB PO ONE (14:18)
[2019-01-07] MEDS: GUAIFENESIN/DM 5ML CUP PO PRN ×2 (17:22→22:32)
[2019-01-07 19:59] VITALS: BP 156/83; PULSE 82; RESP 19
--- NOTE | 2019-01-07 20:19 | PN ---
Date/Time of Note Date/Time of Note DATE: 01/07/19 TIME: 20:11 Assessment/Plan VTE Prophylaxis Risk score (from Ns)>0 risk: 3 SCD applied (from [facility]): Yes SCD contraindicated: low risk/ambulating Pharmacological prophylaxis: heparin Lines/Catheters IV Catheter Type (from [facility]): Peripheral IV Urinary Cath still in place: No Assessment/Plan Hospital Course 1. Right lower lobe pneumonia, now on antibiotics. She has been seen by infectious disease specialist and Pulmonary . She is overall better. She is less short of breath and less cough. 2. Urinary tract infection 3. COPD, emphysema, with acute exacerbation. She is improved and less short of breath now . 4. Anemia, iron deficiency. She has finished a course of ferrlicet . Her stool is negative for occult blood. 5. HTN , BP has been high and is now coming down with more medication . Result Diagram: 01/07/19 0430 01/07/19 0430 Results 24hrs Laboratory Tests Test 01/07/19 04:30 White Blood Count 19.3 H Red Blood Count 3.26 L Hemoglobin 9.0 L Hematocrit 28.2 L Mean Corpuscular Volume 86.5 Mean Corpuscular Hemoglobin 27.6 L Mean Corpuscular Hemoglobin Concent 31.9 L Red Cell Distribution Width 13.3 Platelet Count 368 Mean Platelet Volume 9.1 Immature Granulocytes % 8.800 H Neutrophils % Segmented Neutrophils % (Manual) 90 H Band Neutrophils % (Manual) 2 Lymphocytes % Lymphocytes % (Manual) 6 L Monocytes % Eosinophils % Basophils % Myelocytes % (Manual) 2 H Nucleated Red Blood Cells % 0.0 Immature Granulocytes # 1.710 H Neutrophils # Neutrophils # (Manual) 17.4 H Band Neutrophils # 0.3 Lymphocytes (Manual) 1.1 Lymphocytes # Monocytes # Eosinophils # Basophils # Myelocytes # 0.3 H Nucleated Red Blood Cells # Platelet Estimate NORMAL Polychromasia 2+ Hypochromasia 1+ Poikilocytosis 1+ Sodium Level 133 L Potassium Level 4.6 Chloride Level 99 Carbon Dioxide Level 30 Anion Gap 4 L Blood Urea Nitrogen 13 Creatinine 0.63 Est Glomerular Filtrat Rate mL/min > 60 Glucose Level 142 Calcium Level 8.8 Procalcitonin 0.04 Subjective 24 Hr Interval Summary Free Text/Dictation Patient says that she is feeling better . Less SOB and cough . L chest wall pain and tenderness is better . Constitutional: improved Respiratory: cough, shortness of breath, sputum Gastrointestinal: no complaints Genitourinary: no complaints Musculoskeletal: no complaints Skin: no complaints Neurologic: no complaints Exam/Review of Systems Exam Vitals Vital Signs Date Temp Pulse Resp B/P (MAP) Pulse Ox O2 O2 Flow FiO2 Time Delivery Rate 01/07/19 98.2 82 19 156/83 98 19:59 (107) 01/07/19 2.0 13:49 01/07/19 Nasal 13:47 Cannula Intake and Output 01/06/19 01/06/19 01/07/19 1515:00 23:00 07:00 IntakeIntake Total 1630 ml 1130 ml 800 ml BalanceBalance 1630 ml 1130 ml 800 ml Constitutional: alert Neck: supple Respiratory: diminished breath sounds Cardiovascular: regular rate and rhythm Gastrointestinal: soft, non-tender Musculoskeletal: nl extremities to inspection Results Results 24hrs Laboratory Tests Test 01/07/19 04:30 White Blood Count 19.3 H Red Blood Count 3.26 L Hemoglobin 9.0 L Hematocrit 28.2 L Mean Corpuscular Volume 86.5 Mean Corpuscular Hemoglobin 27.6 L Mean Corpuscular Hemoglobin Concent 31.9 L Red Cell Distribution Width 13.3 Platelet Count 368 Mean Platelet Volume 9.1 Immature Granulocytes % 8.800 H Neutrophils % Segmented Neutrophils % (Manual) 90 H Band Neutrophils % (Manual) 2 Lymphocytes % Lymphocytes % (Manual) 6 L Monocytes % Eosinophils % Basophils % Myelocytes % (Manual) 2 H Nucleated Red Blood Cells % 0.0 Immature Granulocytes # 1.710 H Neutrophils # Neutrophils # (Manual) 17.4 H Band Neutrophils # 0.3 Lymphocytes (Manual) 1.1 Lymphocytes # Monocytes # Eosinophils # Basophils # Myelocytes # 0.3 H Nucleated Red Blood Cells # Platelet Estimate NORMAL Polychromasia 2+ Hypochromasia 1+ Poikilocytosis 1+ Sodium Level 133 L Potassium Level 4.6 Chloride Level 99 Carbon Dioxide Level 30 Anion Gap 4 L Blood Urea Nitrogen 13 Creatinine 0.63 Est Glomerular Filtrat Rate mL/min > 60 Glucose Level 142 Calcium Level 8.8 Procalcitonin 0.04 Medications Medication Current Medications IV Flush (NS 3 ml) 3 ml PER PROTOCOL IV ; Start 01/01/19 at 15:00 Ondansetron HCl (Zofran Inj) 4 mg Q6H PRN IV NAUSEA/VOMITING Last administered on 01/05/19 22:54; Admin Dose 4 MG; Start 01/01/19 at 15:00 Acetaminophen (Tylenol Tab) 650 mg Q6H PRN PO .PAIN 1-3 OR TEMP Last administered on 01/06/19 10:04; Admin Dose 650 MG; Start 01/01/19 at 15:00 Acetaminophen/ Hydrocodone Bitart ([place] (5/325)) 1 tab Q6H PRN PO .MOD PAIN 4- 6 Last administered on 01/07/19 10:50; Admin Dose 1 TAB; Start 01/01/19 at 15:00 Morphine Sulfate (morphine) 2 mg Q4H PRN IV .SEVERE PAIN 7-10; Start 01/01/19 at 15:00 Docusate Sodium (Colace) 100 mg Q12H PRN PO .CONSTIPATION Last administered on 01/03/19 09:27; Admin Dose 100 MG; Start 01/01/19 at 15:00 Magnesium Hydroxide (Milk Of Mag) 30 ml DAILY PRN PO .CONSTIPATION Last administered on 01/03/19 09:27; Admin Dose 30 ML; Start 01/01/19 at 15:00 Heparin Sodium (Porcine) (Heparin (5000 Units/1ml)) 5,000 unit Q12 SC Last administered on 01/07/19 09:47; Admin Dose 5,000 UNIT; Start 01/01/19 at 21:00 Sodium Chloride 1,000 ml @ 75 mls/hr [id number] IV Last administered on 01/07/19 04:37; Admin Dose 75 MLS/HR; Start 01/01/19 at 14:36 Lorazepam (Ativan) 0.5 mg Q6H PRN IV ANXIETY Last administered on 01/07/19 00:49; Admin Dose 0.5 MG; Start 01/01/19 at 15:00 Albuterol/ Ipratropium (Duoneb) 3 ml Q4H RESP THERAPY HHN Last administered on 01/07/19 13:46; Admin Dose 3 ML; Start 01/01/19 at 17:00 Hydralazine HCl (Apresoline) 10 mg Q6H PRN IV ELEVATED BLOOD PRESSURE Last administered on 01/07/19 10:19; Admin Dose 10 MG; Start 01/01/19 at 15:00 Nitroglycerin (Nitroglycerin (Sl Tab) 0.4 Mg) 1 tab Q5M PRN SL ANGINA; Start 01/01/19 at 15:00 Fluoxetine HCl (Prozac) 20 mg DAILY PO Last administered on 01/07/19 09:46; Admin Dose 20 MG; Start 01/02/19 at 09:00 Atorvastatin Calcium (Lipitor) 10 mg HS PO Last administered on 01/06/19 20:35; Admin Dose 10 MG; Start 01/01/19 at 21:00 Arformoterol Tartrate (Brovana (Neb)) 2 ml BID RESP THERAPY INH Last admini stered on 01/07/19 09:46; Admin Dose 2 ML; Start 01/01/19 at 20:00 Budesonide (Pulmicort (Neb)) 0.5 mg BID RESP THERAPY INH Last administered on 01/07/19 09:59; Admin Dose 0.5 MG; Start 01/01/19 at 20:00 Sodium Chloride ([place] Nasal Gel) 1 applic BID PRN NASAL NASAL DRYNESS Last administered on 01/02/19 12:55; Admin Dose 1 APPLIC; Start 01/01/19 at 23:00 Polyethylene Glycol (Miralax) 17 gm DAILY PRN PO constipation; Start 01/03/19 at 10:00 Methylprednisolone Sodium Succinate (Solu-Medrol) 40 mg Q12 IV Last administered on 01/07/19 09:48; Admin Dose 40 MG; Start 01/04/19 at 09:00 Levofloxacin/ Dextrose 150 ml @ 100 mls/hr Q24H IVPB Last administered on 01/07/19 11:57; Admin Dose 100 MLS/HR; Start 01/06/19 at 11:00 Piperacillin Sod/ Tazobactam Sod 100 ml @ 200 mls/hr Q8 IVPB Last administered on 01/07/19 14:29; Admin Dose 200 MLS/HR; Start 01/06/19 at 14:00 Guaifenesin/ Dextromethorphan (Robitussin Dm Liquid Cup) 5 ml Q4H PRN PO COUGH Last administered on 01/07/19 17:22; Admin Dose 5 ML; Start 01/07/19 at 11:00 Clonidine (Catapres) 0.1 mg Q6H PRN PO ELEVATED BLOOD PRESSURE Last administered on 01/07/19at 17:23; Admin Dose 0.1 MG; Start 01/07/19 at 17:30 Lisinopril (Zestril) 40 mg DAILY PO ; Start 01/08/19 at 09:00 ALMA ADAMS MD January 07, 2019 20:19
[2019-01-07] MEDS: ATORVASTATIN 10 MG TAB PO SCH (20:35)
[2019-01-08] MEDS: LORAZEPAM 2 MG INJ IV PRN ×2 (00:11→20:51)
[2019-01-08] MEDS: ALBUTEROL/IPRATROPIUM (NEB) 3 ML AMP HHN SCH ×6 (01:00→21:13)
[2019-01-08 02:00] VITALS: BP 146/67; PULSE 76; RESP 19
[2019-01-08] MEDS: PIPER-TAZO 3.375 GM IV (PMX) 100 ML IVPB SCH ×3 (06:05→22:00)
[2019-01-08 07:53] VITALS: BP 134/77; PULSE 80; RESP 18
[2019-01-08] MEDS: ARFORMOTEROL TARTRATE 15MCG/2 ML AMP INH SCH ×2 (08:17→20:00)
[2019-01-08] MEDS: BUDESONIDE (NEB) 0.5MG/2ML AMP INH SCH ×2 (08:17→21:13)
[2019-01-08] MEDS ORDERED: LISINOPRIL 20 MG TAB PO SCH (09:00)
[2019-01-08] MEDS: LISINOPRIL 20 MG TAB PO SCH (09:24)
[2019-01-08] MEDS: METHYLPREDNISOLONE 40 MG INJ IV SCH ×2 (09:25→20:50)
[2019-01-08] MEDS: FLUOXETINE 20 MG CAP PO SCH (09:25)
[2019-01-08] MEDS: HEPARIN 5,000 UNIT/1 ML VIAL SC SCH ×2 (09:29→21:07)
[2019-01-08] MEDS: LEVOFLOXACIN 750MG/D5W (PMX) 150 ML IVPB SCH (10:44)
[2019-01-08] MEDS: HYDROCODONE/APAP (5/325) TAB PO PRN ×2 (10:44→22:04)
--- NOTE | 2019-01-08 12:50 | CONS ---
Assessment/Plan Assessment/Plan Assessment/Plan (Daily) Chest x-ray was reviewed from today which is showing persistent right upper lobe infiltrate with an element of atelectasis. Assessment and recommendations; 1. Patient with history of COPD admitted with right lower lobe pneumonia with persistent consolidation on chest x-ray as well as appearance of some element of atelectasis indicative of an endobronchial lesion. Continue with supportive care. Scheduled for bronchoscopy tomorrow morning at 8 AM. Patient is agreeable for the procedure. Consultation Date/Type/Reason Admit Date/Time Jan 01, 2019 at 14:28 Initial Consult Date 01/02/19 Type of Consult Pulmonary Patient condition is stable. Complains of very scant cough. Denies any chest pain, fever, chills, any sputum production or hemoptysis. General exam; elderly lady, laying comfortably in bed. Currently no distress. Date/Time of Note DATE: 01/08/19 TIME: 12:48 24 HR Interval Summary Free Text/Dictation Patient's condition is stable. Still complains of cough and chest congestion. General exam; elderly lady, awake alert, currently no distress. Exam/Review of Systems Exam Vitals Vital Signs Date Temp Pulse Resp B/P (MAP) Pulse Ox O2 O2 Flow FiO2 Time Delivery Rate 01/08/19 82 18 96 Nasal 2.0 08:20 Cannula 01/08/19 97.4 134/77 07:53 (96) Intake and Output 01/07/19 01/07/19 01/08/19 1515:00 23:00 07:00 IntakeIntake Total 1690 ml 1470 ml 700 ml BalanceBalance 1690 ml 1470 ml 700 ml Exam H EENT exam; supple neck, no JVD. No lymphadenopathy. Midline trachea. No thyromegaly. Patient has carious teeth. Chest exam; diminished breath sounds bilaterally. S1-S2 audible, no murmurs. Abdomen exam; soft, nontender. No organomegaly. Bowel sounds audible. Extremity exam; no peripheral edema. Patient does have patchy ecchymosis. 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 Results Result Diagram: 01/07/19 0430 01/08/19 0526 Results 24hrs Laboratory Tests Test 01/08/19 05:26 White Blood Count Pending Red Blood Count Pending Hemoglobin Pending Hematocrit Pending Mean Corpuscular Volume Pending Mean Corpuscular Hemoglobin Pending Mean Corpuscular Hemoglobin Concent Pending Red Cell Distribution Width Pending Platelet Count Pending Mean Platelet Volume Pending Sodium Level 133 L Potassium Level 4.4 Chloride Level 98 Carbon Dioxide Level 31 Anion Gap 4 L Blood Urea Nitrogen 13 Creatinine 0.67 Est Glomerular Filtrat Rate mL/min > 60 Glucose Level 124 Calcium Level 8.8 Medications Medication Current Medications IV Flush (NS 3 ml) 3 ml PER PROTOCOL IV ; Start 01/01/19 at 15:00 Ondansetron HCl (Zofran Inj) 4 mg Q6H PRN IV NAUSEA/VOMITING Last administered on 01/05/19 22:54; Admin Dose 4 MG; Start 01/01/19 at 15:00 Acetaminophen (Tylenol Tab) 650 mg Q6H PRN PO .PAIN 1-3 OR TEMP Last administered on 01/06/19 10:04; Admin Dose 650 MG; Start 01/01/19 at 15:00 Acetaminophen/ Hydrocodone Bitart ([place] (5/325)) 1 tab Q6H PRN PO .MOD PAIN 4- 6 Last administered on 01/08/19 10:44; Admin Dose 1 TAB; Start 01/01/19 at 15:00 Morphine Sulfate (morphine) 2 mg Q4H PRN IV .SEVERE PAIN 7-10; Start 01/01/19 at 15:00 Docusate Sodium (Colace) 100 mg Q12H PRN PO .CONSTIPATION Last administered on 01/03/19 09:27; Admin Dose 100 MG; Start 01/01/19 at 15:00 Magnesium Hydroxide (Milk Of Mag) 30 ml DAILY PRN PO .CONSTIPATION Last admini stered on 01/03/19 09:27; Admin Dose 30 ML; Start 01/01/19 at 15:00 Heparin Sodium (Porcine) (Heparin (5000 Units/1ml)) 5,000 unit Q12 SC Last administered on 01/08/19 09:29; Admin Dose 5,000 UNIT; Start 01/01/19 at 21:00 Sodium Chloride 1,000 ml @ 75 mls/hr [id number] IV Last administered on 01/07/19 20:44; Admin Dose 75 MLS/HR; Start 01/01/19 at 14:36 Lorazepam (Ativan) 0.5 mg Q6H PRN IV ANXIETY Last administered on 01/08/19 00:11; Admin Dose 0.5 MG; Start 01/01/19 at 15:00 Albuterol/ Ipratropium (Duoneb) 3 ml Q4H RESP THERAPY HHN Last administered on 01/08/19 08:16; Admin Dose 3 ML; Start 01/01/19 at 17:00 Hydralazine HCl (Apresoline) 10 mg Q6H PRN IV ELEVATED BLOOD PRESSURE Last ad ministered on 01/07/19 10:19; Admin Dose 10 MG; Start 01/01/19 at 15:00 Nitroglycerin (Nitroglycerin (Sl Tab) 0.4 Mg) 1 tab Q5M PRN SL ANGINA; Start 01/01/19 at 15:00 Fluoxetine HCl (Prozac) 20 mg DAILY PO Last administered on 01/08/19 09:25; Admin Dose 20 MG; Start 01/02/19 at 09:00 Atorvastatin Calcium (Lipitor) 10 mg HS PO Last administered on 01/07/19 20:35; Admin Dose 10 MG; Start 01/01/19 at 21:00 Arformoterol Tartrate (Brovana (Neb)) 2 ml BID RESP THERAPY INH Last administered on 01/08/19 08:17; Admin Dose 2 ML; Start 01/01/19 at 20:00 Budesonide (Pulmicort (Neb)) 0.5 mg BID RESP THERAPY INH Last administered on 01/08/19 08:17; Admin Dose 0.5 MG; Start 01/01/19 at 20:00 Sodium Chloride ([place] Nasal Gel) 1 applic BID PRN NASAL NASAL DRYNESS Last administered on 01/02/19 12:55; Admin Dose 1 APPLIC; Start 01/01/19 at 23:00 Polyethylene Glycol (Miralax) 17 gm DAILY PRN PO constipation; Start 01/03/19 at 10:00 Methylprednisolone Sodium Succinate (Solu-Medrol) 40 mg Q12 IV Last administered on 01/08/19 09:25; Admin Dose 40 MG; Start 01/04/19 at 09:00 Levofloxacin/ Dextrose 150 ml @ 100 mls/hr Q24H IVPB Last administered on 01/08/19 10:44; Admin Dose 100 MLS/HR; Start 01/06/19 at 11:00 Piperacillin Sod/ Tazobactam Sod 100 ml @ 200 mls/hr Q8 IVPB Last administered on 01/08/19at 06:05; Admin Dose 200 MLS/HR; Start 01/06/19 at 14:00 Guaifenesin/ Dextromethorphan (Robitussin Dm Liquid Cup) 5 ml Q4H PRN PO COUGH Last administered on 01/07/19at 22:32; Admin Dose 5 ML; Start 01/07/19 at 11:00 Clonidine (Catapres) 0.1 mg Q6H PRN PO ELEVATED BLOOD PRESSURE Last administere d on 01/07/19at 17:23; Admin Dose 0.1 MG; Start 01/07/19 at 17:30 Lisinopril (Zestril) 40 mg DAILY PO Last administered on 01/08/19at 09:24; Admin Dose 40 MG; Start 01/08/19 at 09:00 KENDALL ARECHIGA January 08, 2019 12:50
[2019-01-08 15:43] VITALS: BP 168/85; PULSE 95; RESP 19
--- NOTE | 2019-01-08 17:48 | PN ---
Date/Time of Note Date/Time of Note DATE: 01/08/19 TIME: 17:43 Assessment/Plan VTE Prophylaxis Risk score (from Ns)>0 risk: 6 SCD applied (from [facility]): No SCD contraindicated: low risk/ambulating Pharmacological prophylaxis: heparin Lines/Catheters IV Catheter Type (from [facility]): Peripheral IV Urinary Cath still in place: No Assessment/Plan Hospital Course 1. Right lower lobe pneumonia, now on antibiotics. She has been seen by infectious disease specialist and Pulmonary . She is overall better. She is less short of breath and less cough. She still has a RLL infiltrate and is going to have a bronchoscopy tomorrow . 2. Urinary tract infection , treated 3. COPD, emphysema, with acute exacerbation. She is improved and less short of breath now . 4. Anemia, iron deficiency. She has finished a course of Ferrlicet . Her stool is negative for occult blood. 5. HTN , BP has been high and is now coming down with more medication . Result Diagram: 01/08/19 0501/08/19 0526 Results 24hrs Laboratory Tests Test 01/08/19 05:26 White Blood Count 18.5 H Red Blood Count 3.25 L Hemoglobin 9.2 L Hematocrit 29.3 L Mean Corpuscular Volume 90.2 Mean Corpuscular Hemoglobin 28.3 L Mean Corpuscular Hemoglobin Concent 31.4 L Red Cell Distribution Width 13.6 Platelet Count 389 Mean Platelet Volume 9.4 Immature Granulocytes % 9.000 H Neutrophils % Segmented Neutrophils % (Manual) 76 Band Neutrophils % (Manual) 3 Lymphocytes % Lymphocytes % (Manual) 7 L Monocytes % Monocytes % (Manual) 5 Eosinophils % Basophils % Metamyelocytes % (manual) 6 H Myelocytes % (Manual) 3 H Nucleated Red Blood Cells % 0.0 Immature Granulocytes # 1.660 H Neutrophils # Neutrophils # (Manual) 14.2 H Band Neutrophils # 0.5 Lymphocytes (Manual) 1.2 Lymphocytes # Monocytes # Monocytes # (Manual) 0.9 Eosinophils # Basophils # Metamyelocytes # 1.1 H Myelocytes # 0.5 H Nucleated Red Blood Cells # Platelet Estimate NORMAL Giant Platelets 1 H Polychromasia 1+ Hypochromasia 1+ Poikilocytosis 3+ Anisocytosis 1+ Microcytosis 1+ Sodium Level 133 L Potassium Level 4.4 Chloride Level 98 Carbon Dioxide Level 31 Anion Gap 4 L Blood Urea Nitrogen 13 Creatinine 0.67 Est Glomerular Filtrat Rate mL/min > 60 Glucose Level 124 Calcium Level 8.8 Subjective 24 Hr Interval Summary Free Text/Dictation She is feeling beter today . Less cough and less SOB . Constitutional: improved Respiratory: cough, shortness of breath Cardiovascular: no complaints Gastrointestinal: no complaints Genitourinary: no complaints Musculoskeletal: no complaints Neurologic: no complaints Exam/Review of Systems Exam Vitals Vital Signs Date Temp Pulse Resp B/P (MAP) Pulse Ox O2 O2 Flow FiO2 Time Delivery Rate 01/08/19 98.7 95 19 168/85 99 15:43 (112) 01/08/19 Nasal 2.0 08:20 Cannula Intake and Output 01/07/19 01/07/19 01/08/19 1515:00 23:00 07:00 IntakeIntake Total 1690 ml 1470 ml 700 ml BalanceBalance 1690 ml 1470 ml 700 ml Constitutional: alert, oriented, frail Respiratory: diminished breath sounds Cardiovascular: regular rate and rhythm Gastrointestinal: soft, non-tender Musculoskeletal: nl extremities to inspection Results Results 24hrs Laboratory Tests Test 01/08/19 05:26 White Blood Count 18.5 H Red Blood Count 3.25 L Hemoglobin 9.2 L Hematocrit 29.3 L Mean Corpuscular Volume 90.2 Mean Corpuscular Hemoglobin 28.3 L Mean Corpuscular Hemoglobin Concent 31.4 L Red Cell Distribution Width 13.6 Platelet Count 389 Mean Platelet Volume 9.4 Immature Granulocytes % 9.000 H Neutrophils % Segmented Neutrophils % (Manual) 76 Band Neutrophils % (Manual) 3 Lymphocytes % Lymphocytes % (Manual) 7 L Monocytes % Monocytes % (Manual) 5 Eosinophils % Basophils % Metamyelocytes % (manual) 6 H Myelocytes % (Manual) 3 H Nucleated Red Blood Cells % 0.0 Immature Granulocytes # 1.660 H Neutrophils # Neutrophils # (Manual) 14.2 H Band Neutrophils # 0.5 Lymphocytes (Manual) 1.2 Lymphocytes # Monocytes # Monocytes # (Manual) 0.9 Eosinophils # Basophils # Metamyelocytes # 1.1 H Myelocytes # 0.5 H Nucleated Red Blood Cells # Platelet Estimate NORMAL Giant Platelets 1 H Polychromasia 1+ Hypochromasia 1+ Poikilocytosis 3+ Anisocytosis 1+ Microcytosis 1+ Sodium Level 133 L Potassium Level 4.4 Chloride Level 98 Carbon Dioxide Level 31 Anion Gap 4 L Blood Urea Nitrogen 13 Creatinine 0.67 Est Glomerular Filtrat Rate mL/min > 60 Glucose Level 124 Calcium Level 8.8 Medications Medication Current Medications IV Flush (NS 3 ml) 3 ml PER PROTOCOL IV ; Start 01/01/19 at 15:00 Ondansetron HCl (Zofran Inj) 4 mg Q6H PRN IV NAUSEA/VOMITING Last administered on 01/05/19 22:54; Admin Dose 4 MG; Start 01/01/19 at 15:00 Acetaminophen (Tylenol Tab) 650 mg Q6H PRN PO .PAIN 1-3 OR TEMP Last administered on 01/06/19 10:04; Admin Dose 650 MG; Start 01/01/19 at 15:00 Acetaminophen/ Hydrocodone Bitart ([place] (5/325)) 1 tab Q6H PRN PO .MOD PAIN 4- 6 Last administered on 01/08/19 10:44; Admin Dose 1 TAB; Start 01/01/19 at 15:00 Morphine Sulfate (morphine) 2 mg Q4H PRN IV .SEVERE PAIN 7-10; Start 01/01/19 at 15:00 Docusate Sodium (Colace) 100 mg Q12H PRN PO .CONSTIPATION Last administered on 01/03/19 09:27; Admin Dose 100 MG; Start 01/01/19 at 15:00 Magnesium Hydroxide (Milk Of Mag) 30 ml DAILY PRN PO .CONSTIPATION Last administered on 01/03/19 09:27; Admin Dose 30 ML; Start 01/01/19 at 15:00 Heparin Sodium (Porcine) (Heparin (5000 Units/1ml)) 5,000 unit Q12 SC Last administered on 01/08/19 09:29; Admin Dose 5,000 UNIT; Start 01/01/19 at 21:00 Sodium Chloride 1,000 ml @ 75 mls/hr [id number] IV Last administered on 01/07/19 20:44; Admin Dose 75 MLS/HR; Start 01/01/19 at 14:36 Lorazepam (Ativan) 0.5 mg Q6H PRN IV ANXIETY Last administered on 01/08/19 00:11; Admin Dose 0.5 MG; Start 01/01/19 at 15:00 Albuterol/ Ipratropium (Duoneb) 3 ml Q4H RESP THERAPY HHN Last administered on 01/08/19 13:50; Admin Dose 3 ML; Start 01/01/19 at 17:00 Hydralazine HCl (Apresoline) 10 mg Q6H PRN IV ELEVATED BLOOD PRESSURE Last administered on 01/07/19 10:19; Admin Dose 10 MG; Start 01/01/19 at 15:00 Nitroglycerin (Nitroglycerin (Sl Tab) 0.4 Mg) 1 tab Q5M PRN SL ANGINA; Start 01/01/19 at 15:00 Fluoxetine HCl (Prozac) 20 mg DAILY PO Last administered on 01/08/19 09:25; Admin Dose 20 MG; Start 01/02/19 at 09:00 Atorvastatin Calcium (Lipitor) 10 mg HS PO Last administered on 01/07/19 20:35; Admin Dose 10 MG; Start 01/01/19 at 21:00 Arformoterol Tartrate (Brovana (Neb)) 2 ml BID RESP THERAPY INH Last admini stered on 01/08/19 08:17; Admin Dose 2 ML; Start 01/01/19 at 20:00 Budesonide (Pulmicort (Neb)) 0.5 mg BID RESP THERAPY INH Last administered on 01/08/19 08:17; Admin Dose 0.5 MG; Start 01/01/19 at 20:00 Sodium Chloride ([place] Nasal Gel) 1 applic BID PRN NASAL NASAL DRYNESS Last administered on 01/02/19 12:55; Admin Dose 1 APPLIC; Start 01/01/19 at 23:00 Polyethylene Glycol (Miralax) 17 gm DAILY PRN PO constipation; Start 01/03/19 at 10:00 Methylprednisolone Sodium Succinate (Solu-Medrol) 40 mg Q12 IV Last administered on 01/08/19 09:25; Admin Dose 40 MG; Start 01/04/19 at 09:00 Levofloxacin/ Dextrose 150 ml @ 100 mls/hr Q24H IVPB Last administered on 01/08/19 10:44; Admin Dose 100 MLS/HR; Start 01/06/19 at 11:00 Piperacillin Sod/ Tazobactam Sod 100 ml @ 200 mls/hr Q8 IVPB Last administered on 01/08/19 06:05; Admin Dose 200 MLS/HR; Start 01/06/19 at 14:00 Guaifenesin/ Dextromethorphan (Robitussin Dm Liquid Cup) 5 ml Q4H PRN PO COUGH Last administered on 01/07/19at 22:32; Admin Dose 5 ML; Start 01/07/19 at 11:00 Clonidine (Catapres) 0.1 mg Q6H PRN PO ELEVATED BLOOD PRESSURE Last administered on 01/07/19at 17:23; Admin Dose 0.1 MG; Start 01/07/19 at 17:30 Lisinopril (Zestril) 40 mg DAILY PO Last administered on 01/08/19at 09:24; Admin Dose 40 MG; Start 01/08/19 at 09:00 ALMA ADAMS MD January 08, 2019 17:48
[2019-01-08] MEDS: NYSTATIN SUSP 5 ML CUP PO SCH ×2 (19:05→20:50)
[2019-01-08] MEDS: SOD CHLORIDE 0.45% 1,000 ML IV SCH (19:26)
[2019-01-08 20:00] VITALS: BP 160/87; PULSE 82; RESP 18
[2019-01-08] MEDS: ATORVASTATIN 10 MG TAB PO SCH (20:51)
[2019-01-09] VITALS (7 sets, daily range): BP systolic 142–163; BP diastolic 78–94; PULSE 75–102; RESP 18–29
[2019-01-09] MEDS: ALBUTEROL/IPRATROPIUM (NEB) 3 ML AMP HHN SCH ×6 (01:00→20:59)
[2019-01-09] MEDS: PIPER-TAZO 3.375 GM IV (PMX) 100 ML IVPB SCH ×3 (05:39→21:46)
[2019-01-09] MEDS ORDERED: SEVOFLURANE 15 MIN ONE (07:00)
[2019-01-09] MEDS ORDERED: LIDOCAINE 2% (SDV) 5 ML INJ ONE (07:00)
--- NOTE | 2019-01-09 07:47 | CONS ---
Assessment/Plan Assessment/Plan Assessment/Plan (Daily) Assessment and recommendations; 1. Patient admitted for right lower lobe community acquired pneumonia without any interval radiological improvement with some element of atelectasis indicative of possible underlying endobronchial lesion. 2. COPD. Continue current supportive care. Patient scheduled for bronchoscopy shortly. Procedure was discussed in detail with her yesterday the patient has consented. Further recommendations after bronchoscopy. Consultation Date/Type/Reason Admit Date/Time Jan 01, 2019 at 14:28 Initial Consult Date 01/02/19 Type of Consult Pulmonary Patient condition is stable. Complains of very scant cough. Denies any chest pain, fever, chills, any sputum production or hemoptysis. General exam; elderly lady, laying comfortably in bed. Currently no distress. Date/Time of Note DATE: 01/09/19 TIME: 07:45 24 HR Interval Summary Free Text/Dictation Patient's condition is stable. Still complains of chest congestion and cough. General exam; elderly lady, awake alert, currently no distress. Exam/Review of Systems Exam Vitals Vital Signs Date Temp Pulse Resp B/P (MAP) Pulse Ox O2 O2 Flow FiO2 Time Delivery Rate 01/09/19 98.7 85 18 163/94 93 07:06 (117) 01/09/19 Nasal 2.0 05:48 Cannula Intake and Output 01/08/19 01/08/19 01/09/19 1515:00 23:00 07:00 IntakeIntake Total 1150 ml 580 ml BalanceBalance 1150 ml 580 ml Exam H EENT exam; supple neck, no JVD. No lymphadenopathy. Midline trachea. No thyromegaly. Patient does have carious teeth. Chest exam; diminished breath sounds bilaterally. No added sounds. S1-S2 audible, no murmurs. Regular rhythm. Abdomen exam; soft, nontender. Mildly protuberant. Bowel sounds audible. Extremity exam; no edema. Patient does have patchy ecchymosis. 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 Results Result Diagram: 01/09/19 0438 01/09/19 0438 Results 24hrs Laboratory Tests Test 01/09/19 04:38 White Blood Count 19.7 H Red Blood Count 3.55 L Hemoglobin 10.0 L Hematocrit 31.7 L Mean Corpuscular Volume 89.3 Mean Corpuscular Hemoglobin 28.2 L Mean Corpuscular Hemoglobin Concent 31.5 L Red Cell Distribution Width 13.8 Platelet Count 454 H Mean Platelet Volume 8.9 Immature Granulocytes % 8.400 H Neutrophils % Lymphocytes % Monocytes % Eosinophils % Basophils % Nucleated Red Blood Cells % 0.0 Immature Granulocytes # 1.660 H Neutrophils # Lymphocytes # Monocytes # Eosinophils # Basophils # Nucleated Red Blood Cells # Sodium Level 135 Potassium Level 5.2 H Chloride Level 97 Carbon Dioxide Level 32 H Anion Gap 6 Blood Urea Nitrogen 14 Creatinine 0.72 Est Glomerular Filtrat Rate mL/min > 60 Glucose Level 122 Calcium Level 8.8 Medications Medication Current Medications IV Flush (NS 3 ml) 3 ml PER PROTOCOL IV ; Start 01/01/19 at 15:00 Ondansetron HCl (Zofran Inj) 4 mg Q6H PRN IV NAUSEA/VOMITING Last administered on 01/05/19 22:54; Admin Dose 4 MG; Start 01/01/19 at 15:00 Acetaminophen (Tylenol Tab) 650 mg Q6H PRN PO .PAIN 1-3 OR TEMP Last administered on 01/06/19 10:04; Admin Dose 650 MG; Start 01/01/19 at 15:00 Acetaminophen/ Hydrocodone Bitart ([place] (5/325)) 1 tab Q6H PRN PO .MOD PAIN 4- 6 Last administered on 01/08/19 22:04; Admin Dose 1 TAB; Start 01/01/19 at 15:00 Morphine Sulfate (morphine) 2 mg Q4H PRN IV .SEVERE PAIN 7-10; Start 01/01/19 at 15:00 Docusate Sodium (Colace) 100 mg Q12H PRN PO .CONSTIPATION Last administered on 01/03/19 09:27; Admin Dose 100 MG; Start 01/01/19 at 15:00 Magnesium Hydroxide (Milk Of Mag) 30 ml DAILY PRN PO .CONSTIPATION Last administered on 01/03/19 09:27; Admin Dose 30 ML; Start 01/01/19 at 15:00 Heparin Sodium (Porcine) (Heparin (5000 Units/1ml)) 5,000 unit Q12 SC Last administered on 01/08/19 21:07; Admin Dose 5,000 UNIT; Start 01/01/19 at 21:00 Sodium Chloride 1,000 ml @ 75 mls/hr [id number] IV Last administered on 01/08/19 19:26; Admin Dose 75 MLS/HR; Start 01/01/19 at 14:36 Lorazepam (Ativan) 0.5 mg Q6H PRN IV ANXIETY Last administered on 01/08/19 20:51; Admin Dose 0.5 MG; Start 01/01/19 at 15:00 Albuterol/ Ipratropium (Duoneb) 3 ml Q4H RESP THERAPY HHN Last administered on 01/09/19 05:47; Admin Dose 3 ML; Start 01/01/19 at 17:00 Hydralazine HCl (Apresoline) 10 mg Q6H PRN IV ELEVATED BLOOD PRESSURE Last administered on 01/07/19 10:19; Admin Dose 10 MG; Start 01/01/19 at 15:00 Nitroglycerin (Nitroglycerin (Sl Tab) 0.4 Mg) 1 tab Q5M PRN SL ANGINA; Start 01/01/19 at 15:00 Fluoxetine HCl (Prozac) 20 mg DAILY PO Last administered on 01/08/19 09:25; Admin Dose 20 MG; Start 01/02/19 at 09:00 Atorvastatin Calcium (Lipitor) 10 mg HS PO Last administered on 01/08/19 20:51; Admin Dose 10 MG; Start 01/01/19 at 21:00 Arformoterol Tartrate (Brovana (Neb)) 2 ml BID RESP THERAPY INH Last administered on 01/08/19 08:17; Admin Dose 2 ML; Start 01/01/19 at 20:00 Budesonide (Pulmicort (Neb)) 0.5 mg BID RESP THERAPY INH Last administered on 01/08/19 21:13; Admin Dose 0.5 MG; Start 01/01/19 at 20:00 Sodium Chloride ([place] Nasal Gel) 1 applic BID PRN NASAL NASAL DRYNESS Last administered on 01/02/19 12:55; Admin Dose 1 APPLIC; Start 01/01/19 at 23:00 Polyethylene Glycol (Miralax) 17 gm DAILY PRN PO constipation; Start 01/03/19 at 10:00 Methylprednisolone Sodium Succinate (Solu-Medrol) 40 mg Q12 IV Last administered on 01/08/19 20:50; Admin Dose 40 MG; Start 01/04/19 at 09:00 Levofloxacin/ Dextrose 150 ml @ 100 mls/hr Q24H IVPB Last administered on 01/08/19 10:44; Admin Dose 100 MLS/HR; Start 01/06/19 at 11:00 Piperacillin Sod/ Tazobactam Sod 100 ml @ 200 mls/hr Q8 IVPB Last administered on 01/09/19 05:39; Admin Dose 200 MLS/HR; Start 01/06/19 at 14:00 Guaifenesin/ Dextromethorphan (Robitussin Dm Liquid Cup) 5 ml Q4H PRN PO COUGH Last administered on 01/07/19 22:32; Admin Dose 5 ML; Start 01/07/19 at 11:00 Clonidine (Catapres) 0.1 mg Q6H PRN PO ELEVATED BLOOD PRESSURE Last administered on 01/07/19 17:23; Admin Dose 0.1 MG; Start 01/07/19 at 17:30 Lisinopril (Zestril) 40 mg DAILY PO Last administered on 01/08/19 09:24; Admin Dose 40 MG; Start 01/08/19 at 09:00 Nystatin (Nystatin Susp) 5 ml QID PO Last administered on 01/08/19 20:50; Admin Dose 5 ML; Start 01/08/19 at 18:00 KENDALL ARECHIGA January 09, 2019 07:47
[2019-01-09] MEDS ORDERED: LIDOCAINE 1%/EPI (1:100,000) (MDV) 20 ML ONE (08:19)
[2019-01-09] MEDS ORDERED: DIPHENHYDRAMINE 50 MG INJ IV PRN (08:30)
[2019-01-09] MEDS ORDERED: HYDROmorphONE 1 MG/5 ML IV SYRINGE IV PRN ×2 (08:30)
[2019-01-09] MEDS ORDERED: ALBUTEROL 0.083% (NEB) 2.5 MG/3 ML AMP HHN PRN (08:30)
[2019-01-09] MEDS ORDERED: METOCLOPRAMIDE 10 MG INJ IV PRN (08:30)
[2019-01-09] MEDS ORDERED: ONDANSETRON 4 MG INJ IV PRN (08:30)
[2019-01-09] MEDS ORDERED: LEVALBUTEROL (NEB) 0.63 MG/3 ML AMP HHN PRN (08:30)
[2019-01-09] MEDS ORDERED: FENTAnyl 50 MCG/ML VIAL IV PRN ×2 (08:30)
--- NOTE | 2019-01-09 08:30 | PREAC ---
Date/Time of Note Date/Time of Note DATE: 01/09/19 TIME: 08:29 Anesthesia Eval and Record Evaluation Time Pre-Procedure Interview DATE: 01/09/19 TIME: 08:29 Age 68 Sex female NPO: 8 hrs Preoperative diagnosis PNA Planned procedure Bronchoscopy Past Medical History Past Medical History: Includes Cardio: HTN, Dyslipidemia, CHF Pulm: Smoking Hx, COPD Musculoskeletal: Osteoarthritis Heme: Anemia Psych: Depression Surgery & Anesthesia Issues No known issue Meds Anticoagulation: No Beta Brian within 24 hr: No Reason Beta Brian not given: Pt. not on B-Brian Reported Medications Aclidinium [place] (Tudorza Pressair) 400 Mcg Aer.pow.ba, 400 MCG IH BID, EA 01/01/19 Salmeterol Xinaf/Fluticasone* (Advair*) 250-50 Diskus Inhaler, 1 INH INHALATION BID, #1 INHALER 01/01/19 Pravastatin Sodium* (Pravastatin Sodium*) 40 Mg Tablet, 40 MG PO HS, TAB 01/01/19 Tiotropium [place]* (Spiriva*) 18 Mcg Cap.w.dev, 1 CAP INHALATION DAILY, #30 CAP 01/01/19 Fluoxetine Hcl* (Fluoxetine Hcl*) 20 Mg Capsule, 20 MG PO DAILY, CAP 01/01/19 Lisinopril* (Lisinopril*) 40 Mg Tablet, 40 MG PO DAILY, #30 TAB 01/01/19 Amlodipine Besylate* (Amlodipine Besylate*) 2.5 Mg Tablet, 2.5 MG PO DAILY, #30 TAB 01/01/19 Current Medications IV Flush (NS 3 ml) 3 ml PER PROTOCOL IV ; Start 01/01/19 at 15:00 Ondansetron HCl (Zofran Inj) 4 mg Q6H PRN IV NAUSEA/VOMITING Last administered on 01/05/19at 22:54; Admin Dose 4 MG; Start 01/01/19 at 15:00 Acetaminophen (Tylenol Tab) 650 mg Q6H PRN PO .PAIN 1-3 OR TEMP Last administe red on 01/06/19at 10:04; Admin Dose 650 MG; Start 01/01/19 at 15:00 Acetaminophen/ Hydrocodone Bitart ([place] (5/325)) 1 tab Q6H PRN PO .MOD PAIN 4- 6 Last administered on 01/08/19at 22:04; Admin Dose 1 TAB; Start 01/01/19 at 15:00 Morphine Sulfate (morphine) 2 mg Q4H PRN IV .SEVERE PAIN 7-10; Start 01/01/19 at 15:00 Docusate Sodium (Colace) 100 mg Q12H PRN PO .CONSTIPATION Last administered on 01/03/19 09:27; Admin Dose 100 MG; Start 01/01/19 at 15:00 Magnesium Hydroxide (Milk Of Mag) 30 ml DAILY PRN PO .CONSTIPATION Last administered on 01/03/19 09:27; Admin Dose 30 ML; Start 01/01/19 at 15:00 Heparin Sodium (Porcine) (Heparin (5000 Units/1ml)) 5,000 unit Q12 SC Last administered on 01/08/19 21:07; Admin Dose 5,000 UNIT; Start 01/01/19 at 21:00 Sodium Chloride 1,000 ml @ 75 mls/hr [id number] IV Last administered on 01/08/19 19:26; Admin Dose 75 MLS/HR; Start 01/01/19 at 14:36 Lorazepam (Ativan) 0.5 mg Q6H PRN IV ANXIETY Last administered on 01/08/19 20:51; Admin Dose 0.5 MG; Start 01/01/19 at 15:00 Albuterol/ Ipratropium (Duoneb) 3 ml Q4H RESP THERAPY HHN Last administered on 01/09/19 05:47; Admin Dose 3 ML; Start 01/01/19 at 17:00 Hydralazine HCl (Apresoline) 10 mg Q6H PRN IV ELEVATED BLOOD PRESSURE Last administered on 01/07/19 10:19; Admin Dose 10 MG; Start 01/01/19 at 15:00 Nitroglycerin (Nitroglycerin (Sl Tab) 0.4 Mg) 1 tab Q5M PRN SL ANGINA; Start 01/01/19 at 15:00 Fluoxetine HCl (Prozac) 20 mg DAILY PO Last administered on 01/08/19 09:25; Admin Dose 20 MG; Start 01/02/19 at 09:00 Atorvastatin Calcium (Lipitor) 10 mg HS PO Last administered on 01/08/19 20:51; Admin Dose 10 MG; Start 01/01/19 at 21:00 Arformoterol Tartrate (Brovana (Neb)) 2 ml BID RESP THERAPY INH Last administered on 01/08/19 08:17; Admin Dose 2 ML; Start 01/01/19 at 20:00 Budesonide (Pulmicort (Neb)) 0.5 mg BID RESP THERAPY INH Last administered on 01/08/19 21:13; Admin Dose 0.5 MG; Start 01/01/19 at 20:00 Sodium Chloride ([place] Nasal Gel) 1 applic BID PRN NASAL NASAL DRYNESS Last administered on 01/02/19 12:55; Admin Dose 1 APPLIC; Start 01/01/19 at 23:00 Polyethylene Glycol (Miralax) 17 gm DAILY PRN PO constipation; Start 01/03/19 at 10:00 Methylprednisolone Sodium Succinate (Solu-Medrol) 40 mg Q12 IV Last administered on 01/08/19 20:50; Admin Dose 40 MG; Start 01/04/19 at 09:00 Levofloxacin/ Dextrose 150 ml @ 100 mls/hr Q24H IVPB Last administered on 01/08/19 10:44; Admin Dose 100 MLS/HR; Start 01/06/19 at 11:00 Piperacillin Sod/ Tazobactam Sod 100 ml @ 200 mls/hr Q8 IVPB Last administered on 01/09/19 05:39; Admin Dose 200 MLS/HR; Start 01/06/19 at 14:00 Guaifenesin/ Dextromethorphan (Robitussin Dm Liquid Cup) 5 ml Q4H PRN PO COUGH Last administered on 01/07/19 22:32; Admin Dose 5 ML; Start 01/07/19 at 11:00 Clonidine (Catapres) 0.1 mg Q6H PRN PO ELEVATED BLOOD PRESSURE Last administered on 01/07/19 17:23; Admin Dose 0.1 MG; Start 01/07/19 at 17:30 Lisinopril (Zestril) 40 mg DAILY PO Last administered on 01/08/19 09:24; Admin Dose 40 MG; Start 01/08/19 at 09:00 Nystatin (Nystatin Susp) 5 ml QID PO Last administered on 01/08/19 20:50; Admin Dose 5 ML; Start 01/08/19 at 18:00 Meds reviewed: Yes Allergies Coded Allergies: epinephrine (Verified Allergy, Severe, 01/01/19) Allergies Reviewed: Yes Labs/Studies Labs Reviewed: Reviewed by anesthesiologist Result Diagram: 01/09/19 0438 01/09/19 0438 Laboratory Tests 01/09/19 04:38 test: Negative Studies: ECG Pre-procedure Exam Last vitals Vital Signs Date Temp Pulse Resp B/P (MAP) Pulse Ox O2 O2 Flow FiO2 Time Delivery Rate 01/09/19 Nasal 2.0 08:00 Cannula 01/09/19 98.7 85 18 163/94 93 07:06 (117) Airway: Adequate mouth opening, Adequate thyromental dist Mallampati: Mallampati II Teeth: Normal Lung: Normal Heart: Normal ASA Physical Status ASA physical status: 3 Emergency: None Planned Anesthetic General/MAC: ETT Pre-operative Attestations Prior to commencing anesthesia and surgery, the patient was re-evaluated, there was verification of: *The patient's identity *The results of appropriate recent lab work and preoperative vital signs *The above evaluation not changing prior to induction *Anesthetic plan, risk benefits, alternative and complications discussed with patient/family; questions answered; patient/family understands, accepts and wishes to proceed. NORA SWENSON January 09, 2019 08:30
[2019-01-09] MEDS ORDERED: LIDOCAINE 2% (MDV) 20 ML INJ ONE (08:32)
[2019-01-09] MEDS ORDERED: PROPOFOL 20 ML ONE (08:37)
[2019-01-09] MEDS: NYSTATIN SUSP 5 ML CUP PO SCH ×4 (09:00→21:45)
[2019-01-09] MEDS: BUDESONIDE (NEB) 0.5MG/2ML AMP INH SCH ×2 (09:00→20:59)
[2019-01-09] MEDS: ARFORMOTEROL TARTRATE 15MCG/2 ML AMP INH SCH ×2 (09:00→20:59)
[2019-01-09] MEDS ORDERED: PROVENTIL HFA 6.7GM INHALER ONE (09:09)
--- NOTE | 2019-01-09 09:09 | OPR ---
Date/Time of Note Date/Time of Note DATE: 01/09/19 TIME: 09:04 Operative Report Procedure Date: January 09, 2019 Preoperative Diagnosis Right lower lobe pneumonia, possibly endobronchial lesion right lower lobe Postoperative Diagnosis Complete right lower lobe obstruction by extrinsic compression with endobronchial inflammation Operation/Procedure Performed Bronchoscopy Surgeon see signature line [employer] Administrator Anesthesiologist Anesthesia Type: general Estimated Blood Loss: none Transfusion none Specimen Endobronchial biopsies right lower lobe, washing, brush biopsy. Grafts/Implants none Tubes/Drains None Complications none Procedure Description Patient was brought into the OR. Informed consent was obtained earlier. General anesthesia was explained to her. Patient consented to the procedure. Also the risk of inability to extubate post procedure was also explained to the patient with being on ventilator as well. Patient agreed to the procedure Patient was intubated by the anesthesiologist after induction of general anesthesia. Bronchoscope was introduced via endotracheal tube. Distal trachea was normal, olivia was sharp and well defined. Scope was introduced into the right mainstem bronchus with evaluation of the right upper lobe which was normal, followed by bronchus intermedius, right lower lobe was completely occluded by external compression with endobronchial inflammation. Superior segment of the right lower lobe and middle lobe were patent. Multiple endobronchial biopsies were done which was readily achieved by passing the biopsy forceps through the bronchus and obstruction followed by brush biopsy and finally endobronchial washing. There was minimal if any bleeding. The scope was then introduced into the left mainstem bronchus with evaluation of the left upper lobe, lingula, superior se gment of the lower lobe and lower lobes, were free of any pathology. The scope was then withdrawn. Start time was 8:45 AM, finish time was 8:57 AM. KENDALL ARECHIGA January 09, 2019 09:09
[2019-01-09] MEDS ORDERED: SUCCINYLCHOLINE CHLORIDE 100 MG/5 ML SYG IV ONE (09:12)
[2019-01-09] MEDS: HYDROCODONE/APAP (5/325) TAB PO PRN ×2 (09:27→14:36)
[2019-01-09] MEDS ORDERED: IPRATROPIUM (NEB) 0.5 MG/2.5 ML AMP HHN PRN (09:30)
--- NOTE | 2019-01-09 11:26 | PAC ---
Date/Time of Note Date/Time of Note DATE: 01/09/19 TIME: 11:25 Post-Anesthesia Notes Post-Anesthesia Note Last documented vital signs Vital Signs Date Temp Pulse Resp B/P (MAP) Pulse Ox O2 O2 Flow FiO2 Time Delivery Rate 01/09/19 Nasal 3.0 09:53 Cannula 01/09/19 92 29 142/80 98 09:30 (100) 01/09/19 98.7 09:15 Activity: WNL Respiratory function: WNL Cardiovascular function: WNL Mental status: Baseline Pain reasonably controlled: Yes Hydration appropriate: Yes Nausea/Vomiting absent: Yes NORA SWENSON January 09, 2019 11:26
[2019-01-09] MEDS: AMLODIPINE 2.5 MG TAB PO SCH (11:57)
[2019-01-09] MEDS: FLUOXETINE 20 MG CAP PO SCH (11:57)
[2019-01-09] MEDS: LISINOPRIL 20 MG TAB PO SCH (11:58)
[2019-01-09] MEDS: HEPARIN 5,000 UNIT/1 ML VIAL SC SCH ×2 (12:07→21:51)
[2019-01-09] MEDS: SALINE 0.65% NAS 14.1 GM TUBE NASAL PRN (12:07)
[2019-01-09] MEDS: GUAIFENESIN/DM 5ML CUP PO PRN (12:10)
[2019-01-09] MEDS: SOD CHLORIDE 0.45% 1,000 ML IV SCH (12:14)
[2019-01-09] MEDS: LEVOFLOXACIN 750MG/D5W (PMX) 150 ML IVPB SCH (12:14)
[2019-01-09] MEDS: METHYLPREDNISOLONE 40 MG INJ IV SCH ×2 (12:15→21:45)
--- NOTE | 2019-01-09 14:22 | PN ---
Date/Time of Note Date/Time of Note DATE: 01/09/19 TIME: 14:10 Assessment/Plan VTE Prophylaxis Risk score (from Ns)>0 risk: 4 [place] [facility] [place] [facility] Pharmacological prophylaxis: heparin Lines/Catheters IV Catheter Type (from [facility]): Peripheral IV Urinary Cath still in place: No Assessment/Plan Hospital Course 1. Right lower lobe pneumonia, now on antibiotics. She has been seen by infectious disease specialist and Pulmonary . She is overall better. She is less short of breath and less cough. She just underwent a bronchoscopy and is doing well. 2. Urinary tract infection , treated 3. COPD, emphysema, with acute exacerbation. She is improved and less short of breath now . 4. Anemia, iron deficiency. She has finished a course of Ferrlicet . Her stool is negative for occult blood. 5. HTN , BP has been high and is now coming down with more medication . Result Diagram: 01/09/19 0438 01/09/19 0438 Results 24hrs Laboratory Tests Test 01/09/19 04:38 White Blood Count 19.7 H Red Blood Count 3.55 L Hemoglobin 10.0 L Hematocrit 31.7 L Mean Corpuscular Volume 89.3 Mean Corpuscular Hemoglobin 28.2 L Mean Corpuscular Hemoglobin Concent 31.5 L Red Cell Distribution Width 13.8 Platelet Count 454 H Mean Platelet Volume 8.9 Immature Granulocytes % 8.400 H Neutrophils % Segmented Neutrophils % (Manual) 83 H Band Neutrophils % (Manual) 5 H Lymphocytes % Lymphocytes % (Manual) 5 L Reactive Lymphocytes % (Manual) 1 H Monocytes % Monocytes % (Manual) 3 Eosinophils % Basophils % Metamyelocytes % (manual) 2 H Myelocytes % (Manual) 1 H Nucleated Red Blood Cells % 0.0 Immature Granulocytes # 1.660 H Neutrophils # Neutrophils # (Manual) 16.5 H Band Neutrophils # 0.9 H Lymphocytes (Manual) 0.9 Lymphocytes # Reactive Lymphocytes # 0.1 H Monocytes # Monocytes # (Manual) 0.5 Eosinophils # Basophils # Metamyelocytes # 0.3 H Myelocytes # 0.1 H Nucleated Red Blood Cells # Platelet Estimate NORMAL Polychromasia 1+ Poikilocytosis 2+ Anisocytosis 2+ Macrocytosis 1+ Sodium Level 135 Potassium Level 5.2 H Chloride Level 97 Carbon Dioxide Level 32 H Anion Gap 6 Blood Urea Nitrogen 14 Creatinine 0.72 Est Glomerular Filtrat Rate mL/min > 60 Glucose Level 122 Calcium Level 8.8 Subjective 24 Hr Interval Summary Free Text/Dictation She is now post op a bronchoscopy . She is in the PACU . She is awake and alert . Her breathing is improved . Constitutional: no complaints, improved Respiratory: cough, shortness of breath Gastrointestinal: no complaints Genitourinary: no complaints Musculoskeletal: no complaints Neurologic: no complaints Exam/Review of Systems Exam Vitals Vital Signs Date Temp Pulse Resp B/P (MAP) Pulse Ox O2 O2 Flow FiO2 Time Delivery Rate 01/09/19 96 13:48 01/09/19 2.0 13:48 01/09/19 Nasal 09:53 Cannula 01/09/19 92 29 142/80 09:30 (100) 01/09/19 98.7 09:15 Intake and Output 01/08/19 01/08/19 01/09/19 1515:00 23:00 07:00 IntakeIntake Total 1150 ml 680 ml 925 ml BalanceBalance 1150 ml 680 ml 925 ml Constitutional: alert, oriented, frail Head: normocephalic Respiratory: congested cough, diminished breath sounds Cardiovascular: regular rate and rhythm Gastrointestinal: soft, non-tender Musculoskeletal: nl extremities to inspection Results Results 24hrs Laboratory Tests Test 01/09/19 04:38 White Blood Count 19.7 H Red Blood Count 3.55 L Hemoglobin 10.0 L Hematocrit 31.7 L Mean Corpuscular Volume 89.3 Mean Corpuscular Hemoglobin 28.2 L Mean Corpuscular Hemoglobin Concent 31.5 L Red Cell Distribution Width 13.8 Platelet Count 454 H Mean Platelet Volume 8.9 Immature Granulocytes % 8.400 H Neutrophils % Segmented Neutrophils % (Manual) 83 H Band Neutrophils % (Manual) 5 H Lymphocytes % Lymphocytes % (Manual) 5 L Reactive Lymphocytes % (Manual) 1 H Monocytes % Monocytes % (Manual) 3 Eosinophils % Basophils % Metamyelocytes % (manual) 2 H Myelocytes % (Manual) 1 H Nucleated Red Blood Cells % 0.0 Immature Granulocytes # 1.660 H Neutrophils # Neutrophils # (Manual) 16.5 H Band Neutrophils # 0.9 H Lymphocytes (Manual) 0.9 Lymphocytes # Reactive Lymphocytes # 0.1 H Monocytes # Monocytes # (Manual) 0.5 Eosinophils # Basophils # Metamyelocytes # 0.3 H Myelocytes # 0.1 H Nucleated Red Blood Cells # Platelet Estimate NORMAL Polychromasia 1+ Poikilocytosis 2+ Anisocytosis 2+ Macrocytosis 1+ Sodium Level 135 Potassium Level 5.2 H Chloride Level 97 Carbon Dioxide Level 32 H Anion Gap 6 Blood Urea Nitrogen 14 Creatinine 0.72 Est Glomerular Filtrat Rate mL/min > 60 Glucose Level 122 Calcium Level 8.8 Medications Medication Current Medications IV Flush (NS 3 ml) 3 ml PER PROTOCOL IV ; Start 01/01/19 at 15:00 Ondansetron HCl (Zofran Inj) 4 mg Q6H PRN IV NAUSEA/VOMITING Last administered on 01/05/19 22:54; Admin Dose 4 MG; Start 01/01/19 at 15:00 Acetaminophen (Tylenol Tab) 650 mg Q6H PRN PO .PAIN 1-3 OR TEMP Last administ ered on 01/06/19 10:04; Admin Dose 650 MG; Start 01/01/19 at 15:00 Acetaminophen/ Hydrocodone Bitart ([place] (5/325)) 1 tab Q6H PRN PO .MOD PAIN 4- 6 Last administered on 01/09/19 09:27; Admin Dose 1 TAB; Start 01/01/19 at 15:00 Morphine Sulfate (morphine) 2 mg Q4H PRN IV .SEVERE PAIN 7-10; Start 01/01/19 at 15:00 Docusate Sodium (Colace) 100 mg Q12H PRN PO .CONSTIPATION Last administered on 01/03/19 09:27; Admin Dose 100 MG; Start 01/01/19 at 15:00 Magnesium Hydroxide (Milk Of Mag) 30 ml DAILY PRN PO .CONSTIPATION Last administered on 01/03/19 09:27; Admin Dose 30 ML; Start 01/01/19 at 15:00 Heparin Sodium (Porcine) (Heparin (5000 Units/1ml)) 5,000 unit Q12 SC Last administered on 01/09/19 12:07; Admin Dose 5,000 UNIT; Start 01/01/19 at 21:00 Sodium Chloride 1,000 ml @ 75 mls/hr [id number] IV Last administered on 01/09/19 12:14; Admin Dose 75 MLS/HR; Start 01/01/19 at 14:36 Lorazepam (Ativan) 0.5 mg Q6H PRN IV ANXIETY Last administered on 01/08/19 20:51; Admin Dose 0.5 MG; Start 01/01/19 at 15:00 Albuterol/ Ipratropium (Duoneb) 3 ml Q4H RESP THERAPY HHN Last administered on 01/09/19 13:48; Admin Dose 3 ML; Start 01/01/19 at 17:00 Hydralazine HCl (Apresoline) 10 mg Q6H PRN IV ELEVATED BLOOD PRESSURE Last administered on 01/07/19 10:19; Admin Dose 10 MG; Start 01/01/19 at 15:00 Nitroglycerin (Nitroglycerin (Sl Tab) 0.4 Mg) 1 tab Q5M PRN SL ANGINA; Start 01/01/19 at 15:00 Fluoxetine HCl (Prozac) 20 mg DAILY PO Last administered on 01/09/19 11:57; Admin Dose 20 MG; Start 01/02/19 at 09:00 Atorvastatin Calcium (Lipitor) 10 mg HS PO Last administered on 01/08/19 20:51; Admin Dose 10 MG; Start 01/01/19 at 21:00 Arformoterol Tartrate (Brovana (Neb)) 2 ml BID RESP THERAPY INH Last administered on 01/08/19 08:17; Admin Dose 2 ML; Start 01/01/19 at 20:00 Budesonide (Pulmicort (Neb)) 0.5 mg BID RESP THERAPY INH Last administered on 01/08/19 21:13; Admin Dose 0.5 MG; Start 01/01/19 at 20:00 Sodium Chloride ([place] Nasal Gel) 1 applic BID PRN NASAL NASAL DRYNESS Last administered on 01/09/19 12:07; Admin Dose 1 APPLIC; Start 01/01/19 at 23:00 Polyethylene Glycol (Miralax) 17 gm DAILY PRN PO constipation; Start 01/03/19 at 10:00 Methylprednisolone Sodium Succinate (Solu-Medrol) 40 mg Q12 IV Last administered on 01/09/19 12:15; Admin Dose 40 MG; Start 01/04/19 at 09:00 Piperacillin Sod/ Tazobactam Sod 100 ml @ 200 mls/hr Q8 IVPB Last administered on 01/09/19 05:39; Admin Dose 200 MLS/HR; Start 01/06/19 at 14:00 Guaifenesin/ Dextromethorphan (Robitussin Dm Liquid Cup) 5 ml Q4H PRN PO COUGH Last administered on 01/09/19at 12:10; Admin Dose 5 ML; Start 01/07/19 at 11:00 Clonidine (Catapres) 0.1 mg Q6H PRN PO ELEVATED BLOOD PRESSURE Last administered on 01/07/19 17:23; Admin Dose 0.1 MG; Start 01/07/19 at 17:30 Lisinopril (Zestril) 40 mg DAILY PO Last administered on 01/09/19 11:58; Admin Dose 40 MG; Start 01/08/19 at 09:00 Nystatin (Nystatin Susp) 5 ml QID PO Last administered on 01/09/19 12:11; Admin Dose 5 ML; Start 01/08/19 at 18:00 Hydromorphone HCl (Dilaudid) 0.2 mg PACU PRN IV MILD PAIN 1-3; Start 01/09/19 at 08:30; Stop 01/09/19 at 17:00 Hydromorphone HCl (Dilaudid) 0.4 mg PACU PRN IV MOD PAIN 4-6; Start 01/09/19 at 08:30; Stop 01/09/19 at 17:00 Fentanyl (Sublimaze) 25 mcg PACU ORDER PRN IV MILD PAIN 1-3; Start 01/09/19 at 08:30; Stop 01/09/19 at 17:00 Fentanyl (Sublimaze) 50 mcg PACU ORDER PRN IV MOD PAIN 4-6; Start 01/09/19 at 08:30; Stop 01/09/19 at 17:00 Ondansetron HCl (Zofran Inj) 4 mg PACU ORDER PRN IV NAUSEA/VOMITING; Start 01/09/19 at 08:30; Stop 01/09/19 at 17:00 Metoclopramide HCl (Reglan) 10 mg PACU ORDER PRN IV NAUSEA/VOMITING; Start 01/09/19 at 08:30; Stop 01/09/19 at 17:00 Albuterol (Proventil 0.083% (Neb)) 2.5 mg PACU ORDER PRN HHN .WHEEZING Last administered on 5/3/19at 09:26; Admin Dose 2.5 MG; Start 01/09/19 at 08:30; Stop 01/09/19 at 17:00 Levalbuterol (Xopenex Neb) 0.63 mg PACU ORDER PRN HHN .WHEEZING; Start 01/09/19 at 08:30; Stop 01/09/19 at 17:00 Diphenhydramine HCl (Benadryl) 25 mg PACU ORDER PRN IV .PRURITUS; Start 01/09/19 at 08:30; Stop 01/09/19 at 17:00 Amlodipine Besylate (Norvasc) 2.5 mg DAILY PO Last administered on 01/09/19at 11:57; Admin Dose 2.5 MG; Start 01/09/19 at 10:00 ALMA ADAMS MD January 09, 2019 14:22
[2019-01-09] MEDS: ATORVASTATIN 10 MG TAB PO SCH (21:45)
[2019-01-09] MEDS: LORAZEPAM 2 MG INJ IV PRN (21:58)
[2019-01-10 02:00] VITALS: BP 167/85; PULSE 92; RESP 19
[2019-01-10] MEDS: ALBUTEROL/IPRATROPIUM (NEB) 3 ML AMP HHN SCH ×6 (02:05→20:00)
[2019-01-10] MEDS: SOD CHLORIDE 0.45% 1,000 ML IV SCH ×2 (04:21→12:55)
[2019-01-10] MEDS: HYDROCODONE/APAP (5/325) TAB PO PRN ×3 (04:29→23:53)
[2019-01-10] MEDS: PIPER-TAZO 3.375 GM IV (PMX) 100 ML IVPB SCH ×3 (05:51→21:16)
[2019-01-10] MEDS: AMLODIPINE 2.5 MG TAB PO SCH (08:44)
[2019-01-10] MEDS: LISINOPRIL 20 MG TAB PO SCH (08:44)
[2019-01-10] MEDS: NYSTATIN SUSP 5 ML CUP PO SCH ×4 (08:45→21:07)
[2019-01-10] MEDS: FLUOXETINE 20 MG CAP PO SCH (08:45)
[2019-01-10] MEDS: HEPARIN 5,000 UNIT/1 ML VIAL SC SCH ×2 (08:45→21:10)
[2019-01-10] MEDS: METHYLPREDNISOLONE 40 MG INJ IV SCH ×2 (08:45→21:07)
[2019-01-10 08:47] VITALS: BP 157/78; PULSE 87; RESP 22
[2019-01-10] MEDS: ARFORMOTEROL TARTRATE 15MCG/2 ML AMP INH SCH ×2 (09:02→20:00)
[2019-01-10] MEDS: BUDESONIDE (NEB) 0.5MG/2ML AMP INH SCH ×2 (09:02→20:00)
--- NOTE | 2019-01-10 10:50 | PN ---
Date/Time of Note Date/Time of Note DATE: 01/10/19 TIME: 10:48 Assessment/Plan VTE Prophylaxis Risk score (from Ns)>0 risk: 4 SCD applied (from Ns): Yes Pharmacological prophylaxis: heparin Lines/Catheters IV Catheter Type (from Nrsg): Peripheral IV Urinary Cath still in place: No Assessment/Plan Assessment/Plan 1. RLL pneumonia, post bronch yesterday, improving, abx per id 2. Urinary tract infection , treated 3 Underlying COPD 4. Anemia is stable 5. Hypertension control is improving 6. K+ is elevated, will repeat and dc scout if inc Result Diagram: 01/09/1943701/09/19437 Subjective 24 Hr Interval Summary Respiratory: cough (is less and so is congestion) Cardiovascular: No chest pain Gastrointestinal: no complaints Genitourinary: no complaints Exam/Review of Systems Exam Vitals Vital Signs Date Temp Pulse Resp B/P (MAP) Pulse Ox O2 O2 Flow FiO2 Time Delivery Rate 01/10/19 82 20 94 Nasal 2.0 09:12 Cannula 01/10/19 97.8 157/78 08:47 (104) Intake and Output 01/09/19 01/09/19 01/10/19 1515:00 23:00 07:00 IntakeIntake Total 1045 ml 855 ml 1355 ml OutputOutput Total 0 ml BalanceBalance 1045 ml 855 ml 1355 ml Neck: No jvd Respiratory: clear to auscultation, diminished breath sounds Cardiovascular: regular rate and rhythm Gastrointestinal: soft Extremities: No edema Medications Medication Current Medications IV Flush (NS 3 ml) 3 ml PER PROTOCOL IV ; Start 01/01/19 at 15:00 Ondansetron HCl (Zofran Inj) 4 mg Q6H PRN IV NAUSEA/VOMITING Last administered on 01/05/19at 22:54; Admin Dose 4 MG; Start 01/01/19 at 15:00 Acetaminophen (Tylenol Tab) 650 mg Q6H PRN PO .PAIN 1-3 OR TEMP Last a dministered on 01/06/19at 10:04; Admin Dose 650 MG; Start 01/01/19 at 15:00 Acetaminophen/ Hydrocodone Bitart ([place] (5/325)) 1 tab Q6H PRN PO .MOD PAIN 4- 6 Last administered on 01/10/19at 04:29; Admin Dose 1 TAB; Start 01/01/19 at 15:00 Morphine Sulfate (morphine) 2 mg Q4H PRN IV .SEVERE PAIN 7-10; Start 01/01/19 at 15:00 Docusate Sodium (Colace) 100 mg Q12H PRN PO .CONSTIPATION Last administered on 01/03/19 09:27; Admin Dose 100 MG; Start 01/01/19 at 15:00 Magnesium Hydroxide (Milk Of Mag) 30 ml DAILY PRN PO .CONSTIPATION Last administered on 01/03/19 09:27; Admin Dose 30 ML; Start 01/01/19 at 15:00 Heparin Sodium (Porcine) (Heparin (5000 Units/1ml)) 5,000 unit Q12 SC Last administered on 01/10/19 08:45; Admin Dose 5,000 UNIT; Start 01/01/19 at 21:00 Sodium Chloride 1,000 ml @ 75 mls/hr [id number] IV Last administered on 01/10/19 04:21; Admin Dose 75 MLS/HR; Start 01/01/19 at 14:36 Lorazepam (Ativan) 0.5 mg Q6H PRN IV ANXIETY Last administered on 01/09/19 21:58; Admin Dose 0.5 MG; Start 01/01/19 at 15:00 Albuterol/ Ipratropium (Duoneb) 3 ml Q4H RESP THERAPY HHN Last administered on 01/10/19 09:01; Admin Dose 3 ML; Start 01/01/19 at 17:00 Hydralazine HCl (Apresoline) 10 mg Q6H PRN IV ELEVATED BLOOD PRESSURE Last administered on 01/07/19 10:19; Admin Dose 10 MG; Start 01/01/19 at 15:00 Nitroglycerin (Nitroglycerin (Sl Tab) 0.4 Mg) 1 tab Q5M PRN SL ANGINA; Start 01/01/19 at 15:00 Fluoxetine HCl (Prozac) 20 mg DAILY PO Last administered on 01/10/19 08:45; Admin Dose 20 MG; Start 01/02/19 at 09:00 Atorvastatin Calcium (Lipitor) 10 mg HS PO Last administered on 01/09/19 21:45; Admin Dose 10 MG; Start 01/01/19 at 21:00 Arformoterol Tartrate (Brovana (Neb)) 2 ml BID RESP THERAPY INH Last administered on 01/10/19 09:02; Admin Dose 2 ML; Start 01/01/19 at 20:00 Budesonide (Pulmicort (Neb)) 0.5 mg BID RESP THERAPY INH Last administered on 01/10/19 09:02; Admin Dose 0.5 MG; Start 01/01/19 at 20:00 Sodium Chloride ([place] Nasal Gel) 1 applic BID PRN NASAL NASAL DRYNESS Last administered on 01/09/19 12:07; Admin Dose 1 APPLIC; Start 01/01/19 at 23:00 Polyethylene Glycol (Miralax) 17 gm DAILY PRN PO constipation; Start 01/03/19 at 10:00 Methylprednisolone Sodium Succinate (Solu-Medrol) 40 mg Q12 IV Last administered on 01/10/19 08:45; Admin Dose 40 MG; Start 01/04/19 at 09:00 Piperacillin Sod/ Tazobactam Sod 100 ml @ 200 mls/hr Q8 IVPB Last administered on 01/10/19 05:51; Admin Dose 200 MLS/HR; Start 01/06/19 at 14:00 Guaifenesin/ Dextromethorphan (Robitussin Dm Liquid Cup) 5 ml Q4H PRN PO COUGH Last administered on 01/09/19 12:10; Admin Dose 5 ML; Start 01/07/19 at 11:00 Clonidine (Catapres) 0.1 mg Q6H PRN PO ELEVATED BLOOD PRESSURE Last administ ered on 01/07/19 17:23; Admin Dose 0.1 MG; Start 01/07/19 at 17:30 Lisinopril (Zestril) 40 mg DAILY PO Last administered on 01/10/19 08:44; Admin Dose 40 MG; Start 01/08/19 at 09:00 Nystatin (Nystatin Susp) 5 ml QID PO Last administered on 01/10/19 08:45; Admin Dose 5 ML; Start 01/08/19 at 18:00 Amlodipine Besylate (Norvasc) 2.5 mg DAILY PO Last administered on 01/10/19 08:44; Admin Dose 2.5 MG; Start 01/09/19 at 10:00 BRIANNE RESENDEZ MD January 10, 2019 10:50
[2019-01-10 15:57] VITALS: BP 154/91; PULSE 96; RESP 20
--- NOTE | 2019-01-10 18:38 | CONS ---
Consult Date/Type/Reason Admit Date/Time Jan 01, 2019 at 14:28 Initial Consult Date 01/02/19 Type of Consultation: Pulm Date/Time of Note DATE: 01/10/19 TIME: 18:34 Subjective Experiencing pleuritic chest pain. Sore ribs. Objective Vitals Vital Signs Date Temp Pulse Resp B/P (MAP) Pulse Ox O2 O2 Flow FiO2 Time Delivery Rate 01/10/19 81 20 94 Nasal 2.0 17:28 Cannula 01/10/19 98.7 154/91 15:57 (112) Intake and Output 01/09/19 01/09/19 01/10/19 1515:00 23:00 07:00 IntakeIntake Total 1045 ml 855 ml 1355 ml OutputOutput Total 0 ml BalanceBalance 1045 ml 855 ml 1355 ml Exam HEENT: Neck supple; no JVD; no LAD CVS: RRR, S1 and S2 CHEST: right basilar rales and egophony ABD: Soft, NT, + BS EXT: No c/c/e Results/Medications Result Diagram: 01/09/19 0438 01/10/19 1603 Results 24 hrs Laboratory Tests Test 01/10/19 16:03 Potassium Level 4.2 Home Meds Reported Medications Aclidinium [place] (Tudorza Pressair) 400 Mcg Aer.pow.ba, 400 MCG IH BID, EA 01/01/19 Salmeterol Xinaf/Fluticasone* (Advair*) 250-50 Diskus Inhaler, 1 INH INHALATION BID, #1 INHALER 01/01/19 Pravastatin Sodium* (Pravastatin Sodium*) 40 Mg Tablet, 40 MG PO HS, TAB 01/01/19 Tiotropium [place]* (Spiriva*) 18 Mcg Cap.w.dev, 1 CAP INHALATION DAILY, #30 CAP 01/01/19 Fluoxetine Hcl* (Fluoxetine Hcl*) 20 Mg Capsule, 20 MG PO DAILY, CAP 01/01/19 Lisinopril* (Lisinopril*) 40 Mg Tablet, 40 MG PO DAILY, #30 TAB 01/01/19 Amlodipine Besylate* (Amlodipine Besylate*) 2.5 Mg Tablet, 2.5 MG PO DAILY, #30 TAB 01/01/19 Medications Current Medications IV Flush (NS 3 ml) 3 ml PER PROTOCOL IV ; Start 01/01/19 at 15:00 Ondansetron HCl (Zofran Inj) 4 mg Q6H PRN IV NAUSEA/VOMITING Last administered on 01/05/19 22:54; Admin Dose 4 MG; Start 01/01/19 at 15:00 Acetaminophen (Tylenol Tab) 650 mg Q6H PRN PO .PAIN 1-3 OR TEMP Last administered on 01/06/19 10:04; Admin Dose 650 MG; Start 01/01/19 at 15:00 Acetaminophen/ Hydrocodone Bitart ([place] (5/325)) 1 tab Q6H PRN PO .MOD PAIN 4- 6 Last administered on 01/10/19 18:07; Admin Dose 1 TAB; Start 01/01/19 at 15:00 Morphine Sulfate (morphine) 2 mg Q4H PRN IV .SEVERE PAIN 7-10; Start 01/01/19 at 15:00 Docusate Sodium (Colace) 100 mg Q12H PRN PO .CONSTIPATION Last administered on 01/03/19 09:27; Admin Dose 100 MG; Start 01/01/19 at 15:00 Magnesium Hydroxide (Milk Of Mag) 30 ml DAILY PRN PO .CONSTIPATION Last administered on 01/03/19 09:27; Admin Dose 30 ML; Start 01/01/19 at 15:00 Heparin Sodium (Porcine) (Heparin (5000 Units/1ml)) 5,000 unit Q12 SC Last administered on 01/10/19 08:45; Admin Dose 5,000 UNIT; Start 01/01/19 at 21:00 Sodium Chloride 1,000 ml @ 40 mls/hr Q24H IV Last administered on 01/10/19 04:21; Admin Dose 75 MLS/HR; Start 01/01/19 at 14:36 Lorazepam (Ativan) 0.5 mg Q6H PRN IV ANXIETY Last administered on 01/09/19 21:58; Admin Dose 0.5 MG; Start 01/01/19 at 15:00 Albuterol/ Ipratropium (Duoneb) 3 ml Q4H RESP THERAPY HHN Last administered on 01/10/19 17:18; Admin Dose 3 ML; Start 01/01/19 at 17:00 Hydralazine HCl (Apresoline) 10 mg Q6H PRN IV ELEVATED BLOOD PRESSURE Last administered on 01/07/19 10:19; Admin Dose 10 MG; Start 01/01/19 at 15:00 Nitroglycerin (Nitroglycerin (Sl Tab) 0.4 Mg) 1 tab Q5M PRN SL ANGINA; Start 01/01/19 at 15:00 Fluoxetine HCl (Prozac) 20 mg DAILY PO Last administered on 01/10/19 08:45; Admin Dose 20 MG; Start 01/02/19 at 09:00 Atorvastatin Calcium (Lipitor) 10 mg HS PO Last administered on 01/09/19 21:45; Admin Dose 10 MG; Start 01/01/19 at 21:00 Arformoterol Tartrate (Brovana (Neb)) 2 ml BID RESP THERAPY INH Last adminis tered on 01/10/19 09:02; Admin Dose 2 ML; Start 01/01/19 at 20:00 Budesonide (Pulmicort (Neb)) 0.5 mg BID RESP THERAPY INH Last administered on 01/10/19 09:02; Admin Dose 0.5 MG; Start 01/01/19 at 20:00 Sodium Chloride ([place] Nasal Gel) 1 applic BID PRN NASAL NASAL DRYNESS Last administered on 01/09/19 12:07; Admin Dose 1 APPLIC; Start 01/01/19 at 23:00 Polyethylene Glycol (Miralax) 17 gm DAILY PRN PO constipation; Start 01/03/19 at 10:00 Methylprednisolone Sodium Succinate (Solu-Medrol) 40 mg Q12 IV Last administered on 01/10/19 08:45; Admin Dose 40 MG; Start 01/04/19 at 09:00 Piperacillin Sod/ Tazobactam Sod 100 ml @ 200 mls/hr Q8 IVPB Last administered on 01/10/19 13:30; Admin Dose 200 MLS/HR; Start 01/06/19 at 14:00 Guaifenesin/ Dextromethorphan (Robitussin Dm Liquid Cup) 5 ml Q4H PRN PO COUGH Last administered on 01/09/19 12:10; Admin Dose 5 ML; Start 01/07/19 at 11:00 Clonidine (Catapres) 0.1 mg Q6H PRN PO ELEVATED BLOOD PRESSURE Last administered on 01/07/19 17:23; Admin Dose 0.1 MG; Start 01/07/19 at 17:30 Lisinopril (Zestril) 40 mg DAILY PO Last administered on 01/10/19 08:44; Admin Dose 40 MG; Start 01/08/19 at 09:00 Nystatin (Nystatin Susp) 5 ml QID PO Last administered on 01/10/19 18:06; Admin Dose 5 ML; Start 01/08/19 at 18:00 Amlodipine Besylate (Norvasc) 2.5 mg DAILY PO Last administered on 01/10/19 08:44; Admin Dose 2.5 MG; Start 01/09/19 at 10:00 Assessment/Plan Assessment/Plan (Daily) IMP: 1. RLL Necrotizing pneumonia 2. Emphysema RECS: 1. Continue IV abx 2. Clinically improving though leukocytosis worse. Do not suspect a complicated parapneumonic effusion though will check CXR for enlarging effusion 3. May need a midline if peripheral IV access remains problematic. BRIELLE KRAFT MD January 10, 2019 18:37
[2019-01-10] MEDS: LORAZEPAM 2 MG INJ IV PRN (19:02)
[2019-01-10] MEDS: ONDANSETRON 4 MG INJ IV PRN (19:02)
[2019-01-10 20:04] VITALS: BP 132/65; PULSE 71; RESP 18
[2019-01-10] MEDS: ATORVASTATIN 10 MG TAB PO SCH (21:07)
[2019-01-11] MEDS: ALBUTEROL/IPRATROPIUM (NEB) 3 ML AMP HHN SCH ×6 (00:23→20:25)
[2019-01-11 02:00] VITALS: BP 160/88; PULSE 81; RESP 18
[2019-01-11] MEDS: PIPER-TAZO 3.375 GM IV (PMX) 100 ML IVPB SCH ×3 (06:00→21:34)
[2019-01-11 07:57] VITALS: BP 141/72; PULSE 75; RESP 18
[2019-01-11] MEDS: NYSTATIN SUSP 5 ML CUP PO SCH ×4 (09:23→21:33)
[2019-01-11] MEDS: METHYLPREDNISOLONE 40 MG INJ IV SCH ×2 (09:24→21:33)
[2019-01-11] MEDS: LISINOPRIL 20 MG TAB PO SCH (09:24)
[2019-01-11] MEDS: AMLODIPINE 2.5 MG TAB PO SCH (09:24)
[2019-01-11] MEDS: FLUOXETINE 20 MG CAP PO SCH (09:24)
[2019-01-11] MEDS: SOD CHLORIDE 0.45% 1,000 ML IV SCH (09:25)
[2019-01-11] MEDS: HEPARIN 5,000 UNIT/1 ML VIAL SC SCH ×2 (09:29→21:43)
[2019-01-11] MEDS: BUDESONIDE (NEB) 0.5MG/2ML AMP INH SCH ×2 (09:52→20:25)
[2019-01-11] MEDS: ARFORMOTEROL TARTRATE 15MCG/2 ML AMP INH SCH ×2 (09:52→20:25)
--- NOTE | 2019-01-11 10:10 | PN ---
Date/Time of Note Date/Time of Note DATE: 01/11/19 TIME: 10:08 Assessment/Plan VTE Prophylaxis Risk score (from Ns)>0 risk: 4 SCD applied (from Ns): Yes Pharmacological prophylaxis: LMWH Lines/Catheters IV Catheter Type (from [facility]): Peripheral IV Urinary Cath still in place: No Assessment/Plan Assessment/Plan 1. RLL pneumonia, improving, i reduced steroids 2. Urinary tract infection , treated 3 Underlying COPD 4. Anemia is stable 5. Hypertension control is improving 6. Elev K resolved Result Diagram: 01/11/1952101/11/19521 Results 24hrs Laboratory Tests Test 01/10/19 16:03 01/11/19 05:22 Potassium Level 4.2 4.5 White Blood Count 17.9 H Red Blood Count 3.43 L Hemoglobin 9.6 L Hematocrit 30.4 L Mean Corpuscular Volume 88.6 Mean Corpuscular Hemoglobin 28.0 L Mean Corpuscular Hemoglobin Concent 31.6 L Red Cell Distribution Width 14.6 H Platelet Count 405 Mean Platelet Volume 9.1 Immature Granulocytes % 4.900 H Neutrophils % 87.7 H Lymphocytes % 4.3 L Monocytes % 3.0 Eosinophils % 0.0 Basophils % 0.1 Nucleated Red Blood Cells % 0.0 Immature Granulocytes # 0.880 H Neutrophils # 15.7 H Lymphocytes # 0.8 Monocytes # 0.5 Eosinophils # 0.0 Basophils # 0.0 Nucleated Red Blood Cells # 0.0 Sodium Level 134 L Chloride Level 100 Carbon Dioxide Level 29 Anion Gap 5 Blood Urea Nitrogen 15 Creatinine 0.61 Est Glomerular Filtrat Rate mL/min > 60 Glucose Level 155 Calcium Level 8.6 Phosphorus Level 3.7 Magnesium Level 1.9 Subjective 24 Hr Interval Summary Respiratory: cough (is less as is congestion and wheezing) Cardiovascular: No chest pain Gastrointestinal: no complaints Genitourinary: no complaints Musculoskeletal: no complaints Exam/Review of Systems Exam Vitals Vital Signs Date Temp Pulse Resp B/P (MAP) Pulse Ox O2 O2 Flow FiO2 Time Delivery Rate 01/11/19 98.2 75 18 141/72 97 Nasal 07:57 (95) Cannula 01/11/19 2.0 05:07 Intake and Output 01/10/19 01/10/19 01/11/19 1515:00 23:00 07:00 IntakeIntake Total 700 ml 1500 ml 740 ml BalanceBalance 700 ml 1500 ml 740 ml Neck: No jvd Respiratory: diminished breath sounds (with few rhonchi at bases) Cardiovascular: regular rate and rhythm Gastrointestinal: soft Extremities: No edema Results Results 24hrs Laboratory Tests Test 01/10/19 16:03 01/11/19 05:22 Potassium Level 4.2 4.5 White Blood Count 17.9 H Red Blood Count 3.43 L Hemoglobin 9.6 L Hematocrit 30.4 L Mean Corpuscular Volume 88.6 Mean Corpuscular Hemoglobin 28.0 L Mean Corpuscular Hemoglobin Concent 31.6 L Red Cell Distribution Width 14.6 H Platelet Count 405 Mean Platelet Volume 9.1 Immature Granulocytes % 4.900 H Neutrophils % 87.7 H Lymphocytes % 4.3 L Monocytes % 3.0 Eosinophils % 0.0 Basophils % 0.1 Nucleated Red Blood Cells % 0.0 Immature Granulocytes # 0.880 H Neutrophils # 15.7 H Lymphocytes # 0.8 Monocytes # 0.5 Eosinophils # 0.0 Basophils # 0.0 Nucleated Red Blood Cells # 0.0 Sodium Level 134 L Chloride Level 100 Carbon Dioxide Level 29 Anion Gap 5 Blood Urea Nitrogen 15 Creatinine 0.61 Est Glomerular Filtrat Rate mL/min > 60 Glucose Level 155 Calcium Level 8.6 Phosphorus Level 3.7 Magnesium Level 1.9 Medications Medication Current Medications IV Flush (NS 3 ml) 3 ml PER PROTOCOL IV ; Start 01/01/19 at 15:00 Ondansetron HCl (Zofran Inj) 4 mg Q6H PRN IV NAUSEA/VOMITING Last administered on 01/10/19 19:02; Admin Dose 4 MG; Start 01/01/19 at 15:00 Acetaminophen (Tylenol Tab) 650 mg Q6H PRN PO .PAIN 1-3 OR TEMP Last administered on 01/06/19at 10:04; Admin Dose 650 MG; Start 01/01/19 at 15:00 Acetaminophen/ Hydrocodone Bitart ([place] (5/325)) 1 tab Q6H PRN PO .MOD PAIN 4- 6 Last administered on 01/10/19at 23:53; Admin Dose 1 TAB; Start 01/01/19 at 15:00 Morphine Sulfate (morphine) 2 mg Q4H PRN IV .SEVERE PAIN 7-10; Start 01/01/19 at 15:00 Docusate Sodium (Colace) 100 mg Q12H PRN PO .CONSTIPATION Last administered on 01/03/19 09:27; Admin Dose 100 MG; Start 01/01/19 at 15:00 Magnesium Hydroxide (Milk Of Mag) 30 ml DAILY PRN PO .CONSTIPATION Last administered on 01/03/19 09:27; Admin Dose 30 ML; Start 01/01/19 at 15:00 Heparin Sodium (Porcine) (Heparin (5000 Units/1ml)) 5,000 unit Q12 SC Last administered on 01/11/19 09:29; Admin Dose 5,000 UNIT; Start 01/01/19 at 21:00 Sodium Chloride 1,000 ml @ 40 mls/hr Q24H IV Last administered on 01/10/19 04:21; Admin Dose 75 MLS/HR; Start 01/01/19 at 14:36 Lorazepam (Ativan) 0.5 mg Q6H PRN IV ANXIETY Last administered on 01/10/19 19:02; Admin Dose 0.5 MG; Start 01/01/19 at 15:00 Albuterol/ Ipratropium (Duoneb) 3 ml Q4H RESP THERAPY HHN Last administered on 01/11/19 09:52; Admin Dose 3 ML; Start 01/01/19 at 17:00 Hydralazine HCl (Apresoline) 10 mg Q6H PRN IV ELEVATED BLOOD PRESSURE Last administered on 01/07/19 10:19; Admin Dose 10 MG; Start 01/01/19 at 15:00 Nitroglycerin (Nitroglycerin (Sl Tab) 0.4 Mg) 1 tab Q5M PRN SL ANGINA; Start 01/01/19 at 15:00 Fluoxetine HCl (Prozac) 20 mg DAILY PO Last administered on 01/11/19 09:24; Admin Dose 20 MG; Start 01/02/19 at 09:00 Atorvastatin Calcium (Lipitor) 10 mg HS PO Last administered on 01/10/19 21:07; Admin Dose 10 MG; Start 01/01/19 at 21:00 Arformoterol Tartrate (Brovana (Neb)) 2 ml BID RESP THERAPY INH Last administered on 01/11/19 09:52; Admin Dose 2 ML; Start 01/01/19 at 20:00 Budesonide (Pulmicort (Neb)) 0.5 mg BID RESP THERAPY INH Last administered on 01/11/19 09:52; Admin Dose 0.5 MG; Start 01/01/19 at 20:00 Sodium Chloride ([place] Nasal Gel) 1 applic BID PRN NASAL NASAL DRYNESS Last administered on 01/09/19 12:07; Admin Dose 1 APPLIC; Start 01/01/19 at 23:00 Polyethylene Glycol (Miralax) 17 gm DAILY PRN PO constipation; Start 01/03/19 at 10:00 Methylprednisolone Sodium Succinate (Solu-Medrol) 40 mg Q12 IV Last administered on 01/11/19 09:24; Admin Dose 40 MG; Start 01/04/19 at 09:00 Piperacillin Sod/ Tazobactam Sod 100 ml @ 200 mls/hr Q8 IVPB Last administered on 01/11/19 06:00; Admin Dose 200 MLS/HR; Start 01/06/19 at 14:00 Guaifenesin/ Dextromethorphan (Robitussin Dm Liquid Cup) 5 ml Q4H PRN PO COUGH Last administered on 01/09/19 12:10; Admin Dose 5 ML; Start 01/07/19 at 11:00 Clonidine (Catapres) 0.1 mg Q6H PRN PO ELEVATED BLOOD PRESSURE Last administered on 01/07/19 17:23; Admin Dose 0.1 MG; Start 01/07/19 at 17:30 Lisinopril (Zestril) 40 mg DAILY PO Last administered on 01/11/19 09:24; Admin Dose 40 MG; Start 01/08/19 at 09:00 Nystatin (Nystatin Susp) 5 ml QID PO Last administered on 01/11/19 09:23; Admin Dose 5 ML; Start 01/08/19 at 18:00 Amlodipine Besylate (Norvasc) 2.5 mg DAILY PO Last administered on 01/11/19 09:24; Admin Dose 2.5 MG; Start 01/09/19 at 10:00 BRIANNE RESENDEZ MD January 11, 2019 10:10
--- NOTE | 2019-01-11 13:34 | CONS ---
Consult Date/Type/Reason Admit Date/Time Jan 01, 2019 at 14:28 Initial Consult Date 01/02/19 Type of Consultation: Pulm Date/Time of Note DATE: 01/11/19 TIME: 13:33 Subjective Still with mild pleurisy. Objective Vitals Vital Signs Date Temp Pulse Resp B/P (MAP) Pulse Ox O2 O2 Flow FiO2 Time Delivery Rate 01/11/19 2.0 10:09 01/11/19 81 20 96 Nasal 09:53 Cannula 01/11/19 98.2 141/72 07:57 (95) Intake and Output 01/10/19 01/10/19 01/11/19 1515:00 23:00 07:00 IntakeIntake Total 700 ml 1500 ml 740 ml BalanceBalance 700 ml 1500 ml 740 ml Exam HEENT: Neck supple; no JVD; no LAD CVS: RRR, S1 and S2 CHEST: right basilar rales and egophony ABD: Soft, NT, + BS EXT: No c/c/e Results/Medications Result Diagram: 01/11/1952101/11/19 0522 Results 24 hrs Laboratory Tests Test 01/10/19 16:03 01/11/19 05:22 Potassium Level 4.2 4.5 White Blood Count 17.9 H Red Blood Count 3.43 L Hemoglobin 9.6 L Hematocrit 30.4 L Mean Corpuscular Volume 88.6 Mean Corpuscular Hemoglobin 28.0 L Mean Corpuscular Hemoglobin Concent 31.6 L Red Cell Distribution Width 14.6 H Platelet Count 405 Mean Platelet Volume 9.1 Immature Granulocytes % 4.900 H Neutrophils % 87.7 H Lymphocytes % 4.3 L Monocytes % 3.0 Eosinophils % 0.0 Basophils % 0.1 Nucleated Red Blood Cells % 0.0 Immature Granulocytes # 0.880 H Neutrophils # 15.7 H Lymphocytes # 0.8 Monocytes # 0.5 Eosinophils # 0.0 Basophils # 0.0 Nucleated Red Blood Cells # 0.0 Sodium Level 134 L Chloride Level 100 Carbon Dioxide Level 29 Anion Gap 5 Blood Urea Nitrogen 15 Creatinine 0.61 Est Glomerular Filtrat Rate mL/min > 60 Glucose Level 155 Calcium Level 8.6 Phosphorus Level 3.7 Magnesium Level 1.9 Home Meds Reported Medications Aclidinium [place] (Tudorza Pressair) 400 Mcg Aer.pow.ba, 400 MCG IH BID, EA 01/01/19 Salmeterol Xinaf/Fluticasone* (Advair*) 250-50 Diskus Inhaler, 1 INH INHALATION BID, #1 INHALER 01/01/19 Pravastatin Sodium* (Pravastatin Sodium*) 40 Mg Tablet, 40 MG PO HS, TAB 01/01/19 Tiotropium [place]* (Spiriva*) 18 Mcg Cap.w.dev, 1 CAP INHALATION DAILY, #30 CAP 01/01/19 Fluoxetine Hcl* (Fluoxetine Hcl*) 20 Mg Capsule, 20 MG PO DAILY, CAP 01/01/19 Lisinopril* (Lisinopril*) 40 Mg Tablet, 40 MG PO DAILY, #30 TAB 01/01/19 Amlodipine Besylate* (Amlodipine Besylate*) 2.5 Mg Tablet, 2.5 MG PO DAILY, #30 TAB 01/01/19 Medications Current Medications IV Flush (NS 3 ml) 3 ml PER PROTOCOL IV ; Start 01/01/19 at 15:00 Ondansetron HCl (Zofran Inj) 4 mg Q6H PRN IV NAUSEA/VOMITING Last administered on 01/10/19 19:02; Admin Dose 4 MG; Start 01/01/19 at 15:00 Acetaminophen (Tylenol Tab) 650 mg Q6H PRN PO .PAIN 1-3 OR TEMP Last administered on 01/06/19 10:04; Admin Dose 650 MG; Start 01/01/19 at 15:00 Acetaminophen/ Hydrocodone Bitart ([place] (5/325)) 1 tab Q6H PRN PO .MOD PAIN 4- 6 Last administered on 01/10/19 23:53; Admin Dose 1 TAB; Start 01/01/19 at 15:00 Morphine Sulfate (morphine) 2 mg Q4H PRN IV .SEVERE PAIN 7-10; Start 01/01/19 at 15:00 Docusate Sodium (Colace) 100 mg Q12H PRN PO .CONSTIPATION Last administered on 01/03/19 09:27; Admin Dose 100 MG; Start 01/01/19 at 15:00 Magnesium Hydroxide (Milk Of Mag) 30 ml DAILY PRN PO .CONSTIPATION Last administered on 01/03/19 09:27; Admin Dose 30 ML; Start 01/01/19 at 15:00 Heparin Sodium (Porcine) (Heparin (5000 Units/1ml)) 5,000 unit Q12 SC Last administered on 01/11/19 09:29; Admin Dose 5,000 UNIT; Start 01/01/19 at 21:00 Lorazepam (Ativan) 0.5 mg Q6H PRN IV ANXIETY Last administered on 01/10/19 19:02; Admin Dose 0.5 MG; Start 01/01/19 at 15:00 Albuterol/ Ipratropium (Duoneb) 3 ml Q4H RESP THERAPY HHN Last administered on 01/11/19 09:52; Admin Dose 3 ML; Start 01/01/19 at 17:00 Hydralazine HCl (Apresoline) 10 mg Q6H PRN IV ELEVATED BLOOD PRESSURE Last administered on 01/07/19 10:19; Admin Dose 10 MG; Start 01/01/19 at 15:00 Nitroglycerin (Nitroglycerin (Sl Tab) 0.4 Mg) 1 tab Q5M PRN SL ANGINA; Start 01/01/19 at 15:00 Fluoxetine HCl (Prozac) 20 mg DAILY PO Last administered on 01/11/19 09:24; Admin Dose 20 MG; Start 01/02/19 at 09:00 Atorvastatin Calcium (Lipitor) 10 mg HS PO Last administered on 01/10/19 21:07; Admin Dose 10 MG; Start 01/01/19 at 21:00 Arformoterol Tartrate (Brovana (Neb)) 2 ml BID RESP THERAPY INH Last administered on 01/11/19 09:52; Admin Dose 2 ML; Start 01/01/19 at 20:00 Budesonide (Pulmicort (Neb)) 0.5 mg BID RESP THERAPY INH Last administered on 01/11/19 09:52; Admin Dose 0.5 MG; Start 01/01/19 at 20:00 Sodium Chloride ([place] Nasal Gel) 1 applic BID PRN NASAL NASAL DRYNESS Last administered on 01/09/19 12:07; Admin Dose 1 APPLIC; Start 01/01/19 at 23:00 Polyethylene Glycol (Miralax) 17 gm DAILY PRN PO constipation; Start 01/03/19 at 10:00 Piperacillin Sod/ Tazobactam Sod 100 ml @ 200 mls/hr Q8 IVPB Last administered on 01/11/19 13:13; Admin Dose 200 MLS/HR; Start 01/06/19 at 14:00 Guaifenesin/ Dextromethorphan (Robitussin Dm Liquid Cup) 5 ml Q4H PRN PO COUGH Last administered on 01/09/19 12:10; Admin Dose 5 ML; Start 01/07/19 at 11:00 Clonidine (Catapres) 0.1 mg Q6H PRN PO ELEVATED BLOOD PRESSURE Last administered on 01/07/19 17:23; Admin Dose 0.1 MG; Start 01/07/19 at 17:30 Lisinopril (Zestril) 40 mg DAILY PO Last administered on 01/11/19 09:24; Admin Dose 40 MG; Start 01/08/19 at 09:00 Nystatin (Nystatin Susp) 5 ml QID PO Last administered on 01/11/19 13:13; Admin Dose 5 ML; Start 01/08/19 at 18:00 Amlodipine Besylate (Norvasc) 2.5 mg DAILY PO Last administered on 01/11/19 09:24; Admin Dose 2.5 MG; Start 01/09/19 at 10:00 Methylprednisolone Sodium Succinate (Solu-Medrol) 30 mg Q12 IV ; Start 01/11/19 at 21:00 Assessment/Plan Assessment/Plan (Daily) IMP: 1. RLL Necrotizing pneumonia 2. Emphysema RECS: 1. Continue IV abx 2. Clinically improving though leukocytosis worse. Do not suspect a complicated parapneumonic effusion though will check CXR for enlarging effusion 3. Reduce CS BRIELLE KRAFT MD January 11, 2019 13:34
[2019-01-11 15:21] VITALS: BP 149/76; PULSE 98; RESP 20
[2019-01-11] MEDS: ONDANSETRON 4 MG INJ IV PRN (19:40)
[2019-01-11 20:06] VITALS: BP 155/85; PULSE 83; RESP 20
[2019-01-11] MEDS: ATORVASTATIN 10 MG TAB PO SCH (21:33)
[2019-01-11] MEDS: LORAZEPAM 2 MG INJ IV PRN (21:34)
[2019-01-11] MEDS ORDERED: RANITIDINE 150 MG TAB PO PRN (22:00)
[2019-01-11] MEDS ORDERED: AL HYDROX/MG HYDROX/SIMETH 30 ML CUP PO PRN (22:00)
[2019-01-12] MEDS: ALBUTEROL/IPRATROPIUM (NEB) 3 ML AMP HHN SCH ×6 (01:00→21:00)
[2019-01-12 01:46] VITALS: BP 138/65; PULSE 82; RESP 18
[2019-01-12] MEDS: PIPER-TAZO 3.375 GM IV (PMX) 100 ML IVPB SCH ×3 (05:40→21:40)
[2019-01-12 07:51] VITALS: BP 135/63; PULSE 84; RESP 20
[2019-01-12] MEDS: NYSTATIN SUSP 5 ML CUP PO SCH ×4 (09:05→21:40)
[2019-01-12] MEDS: FLUOXETINE 20 MG CAP PO SCH (09:05)
[2019-01-12] MEDS: AMLODIPINE 2.5 MG TAB PO SCH (09:05)
[2019-01-12] MEDS: METHYLPREDNISOLONE 40 MG INJ IV SCH ×2 (09:06→21:39)
[2019-01-12] MEDS: LISINOPRIL 20 MG TAB PO SCH (09:06)
[2019-01-12] MEDS: HEPARIN 5,000 UNIT/1 ML VIAL SC SCH ×2 (09:19→21:41)
[2019-01-12] MEDS: ARFORMOTEROL TARTRATE 15MCG/2 ML AMP INH SCH ×2 (09:52→21:00)
[2019-01-12] MEDS: BUDESONIDE (NEB) 0.5MG/2ML AMP INH SCH ×2 (09:52→21:00)
--- NOTE | 2019-01-12 11:17 | PDOCDIS ---
Discharge Instructions CONDITION [id number] Patient Condition: [id number] Good HOME CARE INSTRUCTIONS: [id number] Diet Instructions: [id number] Reduced Sodium ACTIVITY: [id number] Activity Restrictions: [id number] Slowly Increase Activity Rest between Activity Avoid heavy lifting [id number] Bathing Restrictions: [id number] Shower FOLLOW UP/APPOINTMENTS Follow-up Plan ALMA Bates MD January 12, 2019 11:17
[2019-01-12 13:32] VITALS: BP 141/74; PULSE 90; RESP 20
--- NOTE | 2019-01-12 15:41 | CONS ---
Consult Date/Type/Reason Admit Date/Time Jan 01, 2019 at 14:28 Initial Consult Date 01/02/19 Type of Consult Pulmonary Date/Time of Note DATE: 01/12/19 TIME: 15:40 Subjective Patient had several episodes of hemoptysis this afternoon following discharge planning. Objective Vital Signs Date Temp Pulse Resp B/P (MAP) Pulse Ox O2 O2 Flow FiO2 Time Delivery Rate 01/12/19 98.8 90 20 141/74 96 13:32 (96) 01/12/19 Nasal 2.0 10:03 Cannula Intake and Output 01/11/19 01/11/19 01/12/19 1515:00 23:00 07:00 IntakeIntake Total 950 ml 340 ml 700 ml BalanceBalance 950 ml 340 ml 700 ml Exam GENERAL: Elderly appearing lady comfortable at rest no acute distress VITAL SIGNS: per chart NECK: Supple. No JVD or lymphadenopathy. CARDIAC EXAM: S1, S2. No added sounds or murmurs. CHEST: Reduced air entry bilaterally ABDOMEN: Soft, nontender. No guarding or rebound. EXTREMITIES: No cyanosis, clubbing or edema. NEUROLOGIC: Generalized weakness. No focal deficits. Vent Setting Fraction of Inspired Oxygen pe: 21 Results/Medications Result Diagram: 01/12/19 0531 01/12/1931 Results 24 hrs Laboratory Tests Test 01/12/19 05:31 White Blood Count 17.7 H Red Blood Count 3.46 L Hemoglobin 9.7 L Hematocrit 30.4 L Mean Corpuscular Volume 87.9 Mean Corpuscular Hemoglobin 28.0 L Mean Corpuscular Hemoglobin Concent 31.9 L Red Cell Distribution Width 14.7 H Platelet Count 380 Mean Platelet Volume 8.8 Immature Granulocytes % 4.500 H Neutrophils % 88.5 H Lymphocytes % 3.8 L Monocytes % 3.0 Eosinophils % 0.1 Basophils % 0.1 Nucleated Red Blood Cells % 0.0 Immature Granulocytes # 0.790 H Neutrophils # 15.7 H Lymphocytes # 0.7 L Monocytes # 0.5 Eosinophils # 0.0 Basophils # 0.0 Nucleated Red Blood Cells # 0.0 Sodium Level 135 Potassium Level 4.6 Chloride Level 99 Carbon Dioxide Level 31 Anion Gap 5 Blood Urea Nitrogen 16 Creatinine 0.68 Est Glomerular Filtrat Rate mL/min > 60 Glucose Level 131 Calcium Level 8.8 Medications Current Medications IV Flush (NS 3 ml) 3 ml PER PROTOCOL IV ; Start 01/01/19 at 15:00 Ondansetron HCl (Zofran Inj) 4 mg Q6H PRN IV NAUSEA/VOMITING Last administered on 01/11/19 19:40; Admin Dose 4 MG; Start 01/01/19 at 15:00 Acetaminophen (Tylenol Tab) 650 mg Q6H PRN PO .PAIN 1-3 OR TEMP Last admi nistered on 01/06/19 10:04; Admin Dose 650 MG; Start 01/01/19 at 15:00 Acetaminophen/ Hydrocodone Bitart ([place] (5/325)) 1 tab Q6H PRN PO .MOD PAIN 4- 6 Last administered on 01/10/19 23:53; Admin Dose 1 TAB; Start 01/01/19 at 15:00 Morphine Sulfate (morphine) 2 mg Q4H PRN IV .SEVERE PAIN 7-10; Start 01/01/19 at 15:00 Docusate Sodium (Colace) 100 mg Q12H PRN PO .CONSTIPATION Last administered on 01/03/19 09:27; Admin Dose 100 MG; Start 01/01/19 at 15:00 Magnesium Hydroxide (Milk Of Mag) 30 ml DAILY PRN PO .CONSTIPATION Last administered on 01/03/19 09:27; Admin Dose 30 ML; Start 01/01/19 at 15:00 Heparin Sodium (Porcine) (Heparin (5000 Units/1ml)) 5,000 unit Q12 SC Last administered on 01/12/19 09:19; Admin Dose 5,000 UNIT; Start 01/01/19 at 21:00 Lorazepam (Ativan) 0.5 mg Q6H PRN IV ANXIETY Last administered on 01/11/19 21:34; Admin Dose 0.5 MG; Start 01/01/19 at 15:00 Albuterol/ Ipratropium (Duoneb) 3 ml Q4H RESP THERAPY HHN Last administered on 01/12/19 09:52; Admin Dose 3 ML; Start 01/01/19 at 17:00 Hydralazine HCl (Apresoline) 10 mg Q6H PRN IV ELEVATED BLOOD PRESSURE Last administered on 01/07/19 10:19; Admin Dose 10 MG; Start 01/01/19 at 15:00 Nitroglycerin (Nitroglycerin (Sl Tab) 0.4 Mg) 1 tab Q5M PRN SL ANGINA; Start 01/01/19 at 15:00 Fluoxetine HCl (Prozac) 20 mg DAILY PO Last administered on 01/12/19 09:05; Admin Dose 20 MG; Start 01/02/19 at 09:00 Atorvastatin Calcium (Lipitor) 10 mg HS PO Last administered on 01/11/19 21:33; Admin Dose 10 MG; Start 01/01/19 at 21:00 Arformoterol Tartrate (Brovana (Neb)) 2 ml BID RESP THERAPY INH Last administered on 01/12/19 09:52; Admin Dose 2 ML; Start 01/01/19 at 20:00 Budesonide (Pulmicort (Neb)) 0.5 mg BID RESP THERAPY INH Last administered on 01/12/19 09:52; Admin Dose 0.5 MG; Start 01/01/19 at 20:00 Sodium Chloride ([place] Nasal Gel) 1 applic BID PRN NASAL NASAL DRYNESS Last administered on 01/09/19 12:07; Admin Dose 1 APPLIC; Start 01/01/19 at 23:00 Polyethylene Glycol (Miralax) 17 gm DAILY PRN PO constipation; Start 01/03/19 at 10:00 Piperacillin Sod/ Tazobactam Sod 100 ml @ 200 mls/hr Q8 IVPB Last administered on 01/12/19 13:24; Admin Dose 200 MLS/HR; Start 01/06/19 at 14:00 Guaifenesin/ Dextromethorphan (Robitussin Dm Liquid Cup) 5 ml Q4H PRN PO COUGH Last administered on 01/09/19 12:10; Admin Dose 5 ML; Start 01/07/19 at 11:00 Clonidine (Catapres) 0.1 mg Q6H PRN PO ELEVATED BLOOD PRESSURE Last administered on 01/07/19 17:23; Admin Dose 0.1 MG; Start 01/07/19 at 17:30 Lisinopril (Zestril) 40 mg DAILY PO Last administered on 01/12/19 09:06; Admin Dose 40 MG; Start 01/08/19 at 09:00 Nystatin (Nystatin Susp) 5 ml QID PO Last administered on 01/12/19 13:24; Admin Dose 5 ML; Start 01/08/19 at 18:00 Amlodipine Besylate (Norvasc) 2.5 mg DAILY PO Last administered on 01/12/19at 09:05; Admin Dose 2.5 MG; Start 01/09/19 at 10:00 Methylprednisolone Sodium Succinate (Solu-Medrol) 30 mg Q12 IV Last administered on 01/12/19at 09:06; Admin Dose 30 MG; Start 01/11/19 at 21:00 Al Hydrox/Mg Hydrox/Simethicone (Mag-Al Plus) 30 ml Q4H PRN PO GASTROINTESTINAL UPSET Last administered on 01/11/19at 22:07; Admin Dose 30 ML; Start 01/11/19 at 22:00 Ranitidine HCl (Zantac) 150 mg BID PRN PO for stomach upset ; Start 01/11/19 at 22:00 Assessment/Plan Hospital Course (Demo Recall) IMP: 1. RLL Necrotizing pneumonia 2. Emphysema 3. Hemoptysis likely secondary to above RECS: 1. Continue IV abx 2. Clinically improving though leukocytosis worse. 3. Reduce CS 4. Quantify hemoptysis. GABI ELY MD, [facility] January 12, 2019 15:41
[2019-01-12] MEDS ORDERED: LOPERAMIDE 2 MG CAP PO PRN (16:30)
--- NOTE | 2019-01-12 19:16 | DS ---
DATE OF ADMISSION: 01/01/2019 DATE OF DISCHARGE: REASON FOR ADMISSION: Cough and shortness of breath. HISTORY OF PRESENT ILLNESS: This 68-year-old female has a history of chronic obstructive pulmonary d isease. The patient came to the emergency room on 01/01/2019 because of cough, fever and shortness o f breath. The patient was found to have a right lower lobe pneumonia. She was admitted and started on broad spectrum antibiotics. The patient had a slow improvement while in the hospital. The right lower lobe infiltrate did persist. The patient was seen in consultation by Dr. Johan Ng, an infectio us disease specialist; Dr. Melva Dr. for pulmonary. She eventually underwent a bronchoscopy . The final pathology of the bronchoscopy, which was done on 01/09/2019 is still pending at the time of discharge. The patient was given breathing treatments and was on antibiotic. The patient will b e transferred to the [facility] in [place]. She will continue the following medications: 1. Ranitidine 150 mg twice a day. 2. Amlodipine 2.5 mg a day. 3. Nystatin suspension p.o. q.i.d. 4. Lisinopril 40 mg a day. 5. Clonidine 0.1 mg every 6 hours as needed for elevated blood pressure. 6. Robitussin-DM for cough. 7. MiraLax 17 grams a day. 8. Prozac 20 grams a day. 9. Atorvastatin 10 mg a day. 10. Brovana nebulizer b.i.d. 11. Budesonide, Pulmicort b.i.d. 12. DuoNeb q.4 hours via handheld nebulizer. 13. Tylenol 650 q.4 hours p.r.n. pain. 14. [place] 5/325 p.o. q. 6 hours p.r.n. severe pain. 15. Docusate sodium 100 mg q.12 hours. 16. Magnesium hydroxide 30 mL daily p.r.n. constipation. 17. Ativan 0.5 mg p.o. q.6 hours p.r.n. anxiety. 18. Nitroglycerin 0.4 mg sublingual p.r.n. chest pain. The patient at the time of discharge was ambulatory with a walker. The patient has been on continuou s oxygen. The patient was in good condition at the time of transfer. I will remain the patient's [facility] care physician. DISCHARGE DIAGNOSES: 1. Right lower lobe pneumonia. 2. Chronic obstructive pulmonary disease. 3. Hypertension. 4. Anemia of chronic disease. Dictated By: ALMA ADAMS MD, ND/LAURI Conf#: [id number] DID#: [id number]
[2019-01-12 20:00] VITALS: BP 153/76; PULSE 76; RESP 20
[2019-01-12] MEDS: LORAZEPAM 2 MG INJ IV PRN (21:40)
[2019-01-12] MEDS: ATORVASTATIN 10 MG TAB PO SCH (22:43)
[2019-01-13] MEDS: ALBUTEROL/IPRATROPIUM (NEB) 3 ML AMP HHN SCH ×3 (01:00→09:39)
[2019-01-13 02:00] VITALS: BP 145/79; PULSE 76; RESP 20
[2019-01-13] MEDS: PIPER-TAZO 3.375 GM IV (PMX) 100 ML IVPB SCH ×2 (06:01→13:28)
[2019-01-13 08:10] VITALS: BP 102/56; PULSE 92; RESP 20
[2019-01-13] MEDS: LISINOPRIL 20 MG TAB PO SCH (08:44)
[2019-01-13] MEDS: NYSTATIN SUSP 5 ML CUP PO SCH ×2 (08:44→13:10)
[2019-01-13] MEDS: METHYLPREDNISOLONE 40 MG INJ IV SCH (08:44)
[2019-01-13] MEDS: AMLODIPINE 2.5 MG TAB PO SCH (08:45)
[2019-01-13] MEDS: FLUOXETINE 20 MG CAP PO SCH (08:45)
--- NOTE | 2019-01-13 08:46 | CONS ---
Assessment/Plan Assessment/Plan Hospital Course (Demo Recall) 1. Right lower lobe pneumonia, now on antibiotics. She has been seen by infectious disease specialist and Dr Frye . She is overall better. She is less short of breath and less cough. She did undergo a bronchoscopy on 01/09/2019. The results showed no evidence of malignancy. She did start to have some hemoptysis yesterday which has persisted. But has not increased. Her breathing is still overall improved. Will see if pulmonary is okay with her going to the rehab center or whether we should wait another day. 2. Urinary tract infection , treated 3. COPD, emphysema, with acute exacerbation. She is improved and less short of breath now . 4. Anemia, iron deficiency. She has finished a course of Ferrlicet . Her stool is negative for occult blood. 5. HTN , is coming under control on current medication. Consultation Date/Type/Reason Admit Date/Time Jan 01, 2019 at 14:28 Initial Consult Date 01/02/19 Date/Time of Note DATE: 01/13/19 TIME: 08:42 24 HR Interval Summary Free Text/Dictation Overall feels better. Still has some dark streaks of blood in her sputum. She is not coughing as much as before and she is breathing better. Constitutional: improved Exam/Review of Systems Exam Vitals Vital Signs Date Temp Pulse Resp B/P (MAP) Pulse Ox O2 O2 Flow FiO2 Time Delivery Rate 01/13/19 98.4 92 20 102/56 97 08:10 (71) 01/13/19 2.0 03:11 01/12/19 Nasal 20:10 Cannula Intake and Output 01/12/19 01/12/19 01/13/19 1414:59 22:59 06:59 IntakeIntake Total 1640 ml 940 ml 100 ml BalanceBalance 1640 ml 940 ml 100 ml Constitutional: alert, oriented, frail Respiratory: clear to auscultation, normal air movement Cardiovascular: regular rate and rhythm Gastrointestinal: soft, non-tender Musculoskeletal: nl extremities to inspection Results Result Diagram: 01/12/19 0531 01/12/19530 Medications Medication Current Medications IV Flush (NS 3 ml) 3 ml PER PROTOCOL IV ; Start 01/01/19 at 15:00 Ondansetron HCl (Zofran Inj) 4 mg Q6H PRN IV NAUSEA/VOMITING Last administered on 01/11/19 19:40; Admin Dose 4 MG; Start 01/01/19 at 15:00 Acetaminophen (Tylenol Tab) 650 mg Q6H PRN PO .PAIN 1-3 OR TEMP Last administered on 01/06/19 10:04; Admin Dose 650 MG; Start 01/01/19 at 15:00 Acetaminophen/ Hydrocodone Bitart ([place] (5/325)) 1 tab Q6H PRN PO .MOD PAIN 4- 6 Last administered on 01/10/19 23:53; Admin Dose 1 TAB; Start 01/01/19 at 15:00 Morphine Sulfate (morphine) 2 mg Q4H PRN IV .SEVERE PAIN 7-10; Start 01/01/19 at 15:00 Docusate Sodium (Colace) 100 mg Q12H PRN PO .CONSTIPATION Last administered on 01/03/19 09:27; Admin Dose 100 MG; Start 01/01/19 at 15:00 Magnesium Hydroxide (Milk Of Mag) 30 ml DAILY PRN PO .CONSTIPATION Last administered on 01/03/19 09:27; Admin Dose 30 ML; Start 01/01/19 at 15:00 Heparin Sodium (Porcine) (Heparin (5000 Units/1ml)) 5,000 unit Q12 SC Last administered on 01/12/19 21:41; Admin Dose 5,000 UNIT; Start 01/01/19 at 21:00 Lorazepam (Ativan) 0.5 mg Q6H PRN IV ANXIETY Last administered on 01/12/19 2 1:40; Admin Dose 0.5 MG; Start 01/01/19 at 15:00 Albuterol/ Ipratropium (Duoneb) 3 ml Q4H RESP THERAPY HHN Last administered on 01/12/19 16:19; Admin Dose 3 ML; Start 01/01/19 at 17:00 Hydralazine HCl (Apresoline) 10 mg Q6H PRN IV ELEVATED BLOOD PRESSURE Last administered on 01/07/19 10:19; Admin Dose 10 MG; Start 01/01/19 at 15:00 Nitroglycerin (Nitroglycerin (Sl Tab) 0.4 Mg) 1 tab Q5M PRN SL ANGINA; Start 01/01/19 at 15:00 Fluoxetine HCl (Prozac) 20 mg DAILY PO Last administered on 01/12/19 09:05; Admin Dose 20 MG; Start 01/02/19 at 09:00 Atorvastatin Calcium (Lipitor) 10 mg HS PO Last administered on 01/12/19 22:43; Admin Dose 10 MG; Start 01/01/19 at 21:00 Arformoterol Tartrate (Brovana (Neb)) 2 ml BID RESP THERAPY INH Last administered on 01/12/19 09:52; Admin Dose 2 ML; Start 01/01/19 at 20:00 Budesonide (Pulmicort (Neb)) 0.5 mg BID RESP THERAPY INH Last administered on 01/12/19 09:52; Admin Dose 0.5 MG; Start 01/01/19 at 20:00 Sodium Chloride ([place] Nasal Gel) 1 applic BID PRN NASAL NASAL DRYNESS Last administered on 01/09/19 12:07; Admin Dose 1 APPLIC; Start 01/01/19 at 23:00 Polyethylene Glycol (Miralax) 17 gm DAILY PRN PO constipation; Start 01/03/19 at 10:00 Piperacillin Sod/ Tazobactam Sod 100 ml @ 200 mls/hr Q8 IVPB Last administered on 01/13/19 06:01; Admin Dose 200 MLS/HR; Start 01/06/19 at 14:00 Guaifenesin/ Dextromethorphan (Robitussin Dm Liquid Cup) 5 ml Q4H PRN PO COUGH Last administered on 01/09/19 12:10; Admin Dose 5 ML; Start 01/07/19 at 11:00 Clonidine (Catapres) 0.1 mg Q6H PRN PO ELEVATED BLOOD PRESSURE Last administered on 01/07/19 17:23; Admin Dose 0.1 MG; Start 01/07/19 at 17:30 Lisinopril (Zestril) 40 mg DAILY PO Last administered on 01/12/19 09:06; Admin Dose 40 MG; Start 01/08/19 at 09:00 Nystatin (Nystatin Susp) 5 ml QID PO Last administered on 01/12/19 21:40; Admin Dose 5 ML; Start 01/08/19 at 18:00 Amlodipine Besylate (Norvasc) 2.5 mg DAILY PO Last administered on 5/6/19at 09:05; Admin Dose 2.5 MG; Start 01/09/19 at 10:00 Methylprednisolone Sodium Succinate (Solu-Medrol) 30 mg Q12 IV Last administered on 01/12/19at 21:39; Admin Dose 30 MG; Start 01/11/19 at 21:00 Al Hydrox/Mg Hydrox/Simethicone (Mag-Al Plus) 30 ml Q4H PRN PO GASTROINTESTINAL UPSET Last administered on 01/11/19at 22:07; Admin Dose 30 ML; Start 01/11/19 at 22:00 Ranitidine HCl (Zantac) 150 mg BID PRN PO for stomach upset ; Start 01/11/19 at 22:00 Loperamide HCl (Imodium Cap) 2 mg Q6 PRN PO DIARRHEA; Start 01/12/19 at 16:30 ALMA ADAMS MD January 13, 2019 08:46
[2019-01-13] MEDS: HEPARIN 5,000 UNIT/1 ML VIAL SC SCH (08:51)
[2019-01-13] MEDS: ARFORMOTEROL TARTRATE 15MCG/2 ML AMP INH SCH (09:00)
[2019-01-13] MEDS: BUDESONIDE (NEB) 0.5MG/2ML AMP INH SCH (09:39)
--- NOTE | 2019-01-13 11:52 | CONS ---
Consult Date/Type/Reason Admit Date/Time Jan 01, 2019 at 14:28 Initial Consult Date 01/02/19 Type of Consult Pulmonary Date/Time of Note DATE: 01/13/19 TIME: 11:50 Subjective Patient stable this morning. Less secretions and improved hemoptysis. Breathing also better. Objective Vital Signs Date Temp Pulse Resp B/P (MAP) Pulse Ox O2 O2 Flow FiO2 Time Delivery Rate 01/13/19 2.0 09:43 01/13/19 82 20 Nasal 09:42 Cannula 01/13/19 98.4 102/56 97 08:10 (71) Intake and Output 01/12/19 01/12/19 01/13/19 1515:00 23:00 07:00 IntakeIntake Total 1640 ml 940 ml 100 ml BalanceBalance 1640 ml 940 ml 100 ml Exam GENERAL: Elderly appearing lady comfortable at rest no acute distress VITAL SIGNS: per chart NECK: Supple. No JVD or lymphadenopathy. CARDIAC EXAM: S1, S2. No added sounds or murmurs. CHEST: Reduced air entry bilaterally ABDOMEN: Soft, nontender. No guarding or rebound. EXTREMITIES: No cyanosis, clubbing or edema. NEUROLOGIC: Generalized weakness. No focal deficits. Vent Setting Fraction of Inspired Oxygen pe: 21 Results/Medications Result Diagram: 01/12/1931 01/12/19530 Medications Current Medications IV Flush (NS 3 ml) 3 ml PER PROTOCOL IV ; Start 01/01/19 at 15:00 Ondansetron HCl (Zofran Inj) 4 mg Q6H PRN IV NAUSEA/VOMITING Last administered on 01/11/19 19:40; Admin Dose 4 MG; Start 01/01/19 at 15:00 Acetaminophen (Tylenol Tab) 650 mg Q6H PRN PO .PAIN 1-3 OR TEMP Last administered on 01/06/19 10:04; Admin Dose 650 MG; Start 01/01/19 at 15:00 Acetaminophen/ Hydrocodone Bitart ([place] (5/325)) 1 tab Q6H PRN PO .MOD PAIN 4- 6 Last administered on 01/10/19at 23:53; Admin Dose 1 TAB; Start 01/01/19 at 15:00 Morphine Sulfate (morphine) 2 mg Q4H PRN IV .SEVERE PAIN 7-10; Start 01/01/19 at 15:00 Docusate Sodium (Colace) 100 mg Q12H PRN PO .CONSTIPATION Last administered on 01/03/19 09:27; Admin Dose 100 MG; Start 01/01/19 at 15:00 Magnesium Hydroxide (Milk Of Mag) 30 ml DAILY PRN PO .CONSTIPATION Last administered on 01/03/19 09:27; Admin Dose 30 ML; Start 01/01/19 at 15:00 Heparin Sodium (Porcine) (Heparin (5000 Units/1ml)) 5,000 unit Q12 SC Last administered on 01/13/19 08:51; Admin Dose 5,000 UNIT; Start 01/01/19 at 21:00 Lorazepam (Ativan) 0.5 mg Q6H PRN IV ANXIETY Last administered on 01/12/19 21:40; Admin Dose 0.5 MG; Start 01/01/19 at 15:00 Albuterol/ Ipratropium (Duoneb) 3 ml Q4H RESP THERAPY HHN Last administered on 01/13/19 09:39; Admin Dose 3 ML; Start 01/01/19 at 17:00 Hydralazine HCl (Apresoline) 10 mg Q6H PRN IV ELEVATED BLOOD PRESSURE Last administered on 01/07/19 10:19; Admin Dose 10 MG; Start 01/01/19 at 15:00 Nitroglycerin (Nitroglycerin (Sl Tab) 0.4 Mg) 1 tab Q5M PRN SL ANGINA; Start 01/01/19 at 15:00 Fluoxetine HCl (Prozac) 20 mg DAILY PO Last administered on 01/13/19 08:45; Admin Dose 20 MG; Start 01/02/19 at 09:00 Atorvastatin Calcium (Lipitor) 10 mg HS PO Last administered on 01/12/19 22:43; Admin Dose 10 MG; Start 01/01/19 at 21:00 Arformoterol Tartrate (Brovana (Neb)) 2 ml BID RESP THERAPY INH Last administered on 01/12/19 09:52; Admin Dose 2 ML; Start 01/01/19 at 20:00 Budesonide (Pulmicort (Neb)) 0.5 mg BID RESP THERAPY INH Last administered on 01/13/19 09:39; Admin Dose 0.5 MG; Start 01/01/19 at 20:00 Sodium Chloride ([place] Nasal Gel) 1 applic BID PRN NASAL NASAL DRYNESS Last a dministered on 01/09/19 12:07; Admin Dose 1 APPLIC; Start 01/01/19 at 23:00 Polyethylene Glycol (Miralax) 17 gm DAILY PRN PO constipation; Start 01/03/19 at 10:00 Piperacillin Sod/ Tazobactam Sod 100 ml @ 200 mls/hr Q8 IVPB Last administered on 01/13/19 06:01; Admin Dose 200 MLS/HR; Start 01/06/19 at 14:00 Guaifenesin/ Dextromethorphan (Robitussin Dm Liquid Cup) 5 ml Q4H PRN PO COUGH Last administered on 01/09/19 12:10; Admin Dose 5 ML; Start 01/07/19 at 11:00 Clonidine (Catapres) 0.1 mg Q6H PRN PO ELEVATED BLOOD PRESSURE Last administered on 01/07/19 17:23; Admin Dose 0.1 MG; Start 01/07/19 at 17:30 Lisinopril (Zestril) 40 mg DAILY PO Last administered on 01/13/19 08:44; Admin Dose 40 MG; Start 01/08/19 at 09:00 Nystatin (Nystatin Susp) 5 ml QID PO Last administered on 01/13/19 08:44; Admin Dose 5 ML; Start 01/08/19 at 18:00 Amlodipine Besylate (Norvasc) 2.5 mg DAILY PO Last administered on 01/13/19 08:45; Admin Dose 2.5 MG; Start 01/09/19 at 10:00 Methylprednisolone Sodium Succinate (Solu-Medrol) 30 mg Q12 IV Last administered on 01/13/19 08:44; Admin Dose 30 MG; Start 01/11/19 at 21:00 Al Hydrox/Mg Hydrox/Simethicone (Mag-Al Plus) 30 ml Q4H PRN PO GASTROINTESTINAL UPSET Last administered on 01/11/19 22:07; Admin Dose 30 ML; Start 01/11/19 at 22:00 Ranitidine HCl (Zantac) 150 mg BID PRN PO for stomach upset ; Start 01/11/19 at 22:00 Loperamide HCl (Imodium Cap) 2 mg Q6 PRN PO DIARRHEA; Start 01/12/19 at 16:30 Assessment/Plan Hospital Course (Demo Recall) IMP: 1. RLL Necrotizing pneumonia 2. Emphysema 3. Hemoptysis likely secondary to above RECS: 1. Continue IV abx 2. Clinically improving though leukocytosis worse. 3. Reduce CS 4. Quantify hemoptysis. Agree with discharge planning today. Follow-up with me as an outpatient. GABI ELY MD, FCCP January 13, 2019 11:52
[2019-01-13 13:43] VITALS: BP 141/75; PULSE 82; RESP 20
== END 2019-01-13 14:30 | DRG 193 ==
LOC: E/R 12:32 → 2NE 14:28
PROVIDERS: ADMIT Internal Medicine; ATTEND Internal Medicine
PROC: 0BD68ZX Extraction of Right Lower Lobe Bronchus, Via Natural or Artificial Opening Endoscopic, Diagnostic (ICD-10-PCS; principal; 2019-01-09 08:00)
DX: J18.9 Pneumonia, unspecified organism (principal); R65.20 Severe sepsis without septic shock; E87.1 Hypo-osmolality and hyponatremia; N39.0 Urinary tract infection, site not specified; J44.1 Chronic obstructive pulmonary disease with (acute) exacerbation; R04.2 Hemoptysis; J98.11 Atelectasis; I50.9 Heart failure, unspecified; I11.0 Hypertensive heart disease with heart failure; E78.5 Hyperlipidemia, unspecified; D50.9 Iron deficiency anemia, unspecified; B96.20 Unspecified Escherichia coli [E. coli] as the cause of diseases classified elsewhere; R09.02 Hypoxemia; D72.829 Elevated white blood cell count, unspecified; D63.8 Anemia in other chronic diseases classified elsewhere; Z87.891 Personal history of nicotine dependence; J98.4 Other disorders of lung; J43.9 Emphysema, unspecified
CPT/HCPCS: 36415; 71045; 71250; 76775; 80048; 80053; 80061; 81001; 82270; 82728; 83036; 83540; 83605; 83735; 84100; 84132; 84145; 84300; 84439; 84443; 84484; 85025; 85610; 85730; 87070; 87081; 87086; 88104; 88305; 88309; 92610; 93005; 93306; 94640; 94644; 94664; 96374; 96375; 97110; 97116; 97161; 97165; 97530; J0360; J0692; J0696; J1100; J1644; J1956; J2060; J2270; J2405; J2543; J2916; J2920; J2930; J3370; J3475; J7030